=== PATIENT | female | born 1945 | race Caucasian/White ===

== ENCOUNTER → 2017-04-11 10:57 | Outpatient (CLI) | payer MEDICARE, SELFPAY ==
[2017-04-11 11:59] LABS: Anion Gap 7 (5-15); BUN 11 mg/dL (7-18); BUN/Creat Ratio 14.2 RATIO (10-20); Calcium,Total 9.2 mg/dL (8.5-10.1); Chloride 101 mmol/L (98-107); Creatinine, Serum 0.77 mg/dL (0.55-1.02); EST Glomerular Filtration Rate 78 mL/min (>60); Est Glom Filt Rate - Afr Amer 94 mL/min (>60); Glucose 108 mg/dL (70-110); Potassium 3.7 mmol/L (3.5-5.1); Sodium Level 138 mmol/L (136-145)
== END ==
PROVIDERS: Family Provider Family Medicine; PCP Family Medicine; Visit Provider Obstetrics & Gynecology
DX: N99.3 Prolapse of vaginal vault after hysterectomy (principal)
CPT/HCPCS: 36415; 80048

== ENCOUNTER → 2017-04-13 13:51 | Outpatient (CLI) | payer MEDICARE, SELFPAY ==
--- NOTE | 2017-04-13 13:53 | CT_ITS ---
STUDY: CT ABDOMEN AND PELVIS WITH CONTRAST REASON FOR EXAM: Female, 72 years old. Vaginal vault prolapse. Prior hysterectomy. History of colon cancer and resection. RADIATION DOSAGE (If Supplied By Facility): CTDIvol = ( 15.71 ) mGy, DLP = ( 555.78 ) mGycm TECHNIQUE: Transaxial images were obtained from the dome of the diaphragm to the symphysis pubis with oral contrast. 100 ml of Isovue 300 contrast was administered. Sagittal and coronal images were reconstructed. Individualized dose optimization techniques were used for this CT. COMPARISON: None. FINDINGS: Increased linear markings at the right lung base suggestive of bibasilar linear atelectasis and/or scarring. The visualized portions of the heart are within normal limits. Calcified granuloma in the dome of the right lobe of the liver. The patient is status post cholecystectomy. Minimally dilated common bile duct most likely secondary to the prior cholecystectomy. This measures 1.2 cm. Normal spleen. There is diffuse atrophy of the pancreas. Normal bilateral adrenal glands. Mild degree of bilateral hydronephrosis. Normal visualized stomach. Normal small intestine. There are multiple colonic diverticula consistent with diverticulosis. There is non-visualization of the appendix. Normal abdominal aorta. Normal inferior vena cava. Normal retroperitoneum. Normal urinary bladder. Normal abdominal wall. Straightening of the normal lumbar lordosis. Sclerotic changes in the L4 vertebrae with mild loss of height. Metastatic disease should be ruled out. There is also evidence of very demineralization of the L3 vertebrae. Correlation with a bone scan is recommended for further evaluation. Mild degree of levoscoliosis. CT/Abdomen/Pelvis WITH Contrast IMPRESSION: Status post cholecystectomy. Sclerotic changes in the L4 vertebrae as well as decrease density of the L3 vertebrae. Correlation with a bone scan is recommended. Electronically Signed: Ankush Durham MD at 15:28 EST Tel [phone], Service support ,
== END ==
PROVIDERS: Family Provider Family Medicine; PCP Family Medicine; Visit Provider Obstetrics & Gynecology
DX: N99.3 Prolapse of vaginal vault after hysterectomy (principal)
CPT/HCPCS: 74177; Q9967

== ENCOUNTER 2023-04-13 10:45 | Outpatient (RCR) | payer MEDICARE, SELFPAY ==
[2023-03-23 08:50] VITALS: BP 148/88; PULSE 79; TEMP 36.2; BMI 21.6
--- NOTE | 2023-03-23 09:54 | HP.PCM_ITS ---
History of Present Illness Date of Service: 03/23/23 Chief Complaint: Right leg wound History of Wound: Right leg wound Progress of Wound: Mrs. Booker is a 78-year-old female presenting to the wound care center today for evaluation and treatment of a full-thickness ulceration to the medial side of her right ankle. Patient was seen by her primary care physician who was treating her with open to air treatment, Neosporin and gauze. Patient states that she notices a scab to the area and was referred to the wound care center for further evaluation for treatment to help get her full-thickness wound to close. Patient admits to pain especially at night when she is in a laying down position. Treatment thus far has been by her applying Neosporin and gauze. She has not tried any antibiotics. She admits there is some redness to the surrounding tissue of the wound. She denies any drainage. She does not wear compression. She denies trauma to the area. Denies constitutional symptoms. No other pedal complaints at this time. [facility] Home Medications atorvastatin 20 mg tablet (Lipitor) 20 mg PO DAILY 07/23/16 [History Last Taken Unknown] [id number]-[id number]-cjty 8 mg-folic 400 mcg-K 50 mcg-lutein 300 mcg tablet (Centrum Silver Women) 1 ea PO DAILY 07/23/16 [History Last Taken Unknown] alendronate 70 mg/75 mL oral solution 70 mg PO QWEEK 03/23/23 [History Last Taken Unknown] amlodipine 5 mg-benazepril 20 mg capsule (Lotrel) 1 cap PO DAILY Hypertension 03/23/23 [History Last Taken Unknown] Allergy/AdvReac Type Severity Reaction Status Date / Time No Known Allergies Allergy Verified 07/23/16 09:56 Social History Smoking Status: Never smoker Vital Signs Vital Signs Vital Signs: 03/23/23 08:50 Temperature 97.2 F L Temperature Source Temporal Pulse Rate 79 Blood Pressure 148/88 H Blood Pressure Mean 108 Blood Pressure Source Monitor Blood Pressure Position Sitting Blood Pressure Location Right Arm Oxygen Delivery Method Room Air Weight Weight: 62.596 kg Body Mass Index (BMI) 21.6 Physical Exam Narrative Vascular: DP and PT pulses are palpable. CFT is brisk. Skin temperature gradient is warm to warm from proximal ankle to distal digits. Blanchable erythema is appreciated to the periwound of the right lower extremity. Nonpitting edema is appreciated to the right lower extremity. Neurological: Light touch intact. Patient response to painful stimuli. Dermatological: Full-thickness ulceration measuring 2.2 x 1.3 x 0.1 cm. Wound base is granular in nature. No drainage. No malodor. Evidence of blanchable erythema to periwound. Evidence of cobblestone appearance around periwound as well. Excisional debridement down to and including subcutaneous tissue of the medial ankle full-thickness ulceration with a number 5 mm dermal curette without incident. Predebridement measurement was sanguinous crust. Postdebridement measurement is 2.2 x 1.3 x 0.1 cm. Musculoskeletal: Mild pain to palpation of full-thickness ulceration of the right ankle. No pain with calf compression. Const alert, oriented x3 and no apparent distress Debridement Note Debridement Note Debridement Free Text: Excisional debridement down to and including subcutaneous tissue of the medial ankle full-thickness ulceration with a number 5 mm dermal curette without incident. Predebridement measurement was sanguinous crust. Postdebridement measurement is 2.2 x 1.3 x 0.1 cm. Post-Debridement Measurements and Additional Note: Post-Debridement Measurements/Treatment - Nurse 1 - General Ulcer Assessment Start: 03/23/23 08:49 Freq: Status: Active Protocol: WC.[email or web address] Activity Type Activity Date Activity User E-sign Co-sign Detail Recorded Client Recorded Date Recorded By Document 03/23/23 08:50 Desktop 03/23/23 09:06 GM 03/23/23 08:50 - Today's Visit Information Type of service Initial Visit Arrival Mode Ambulatory Transfer Assistance None Accompanied by Patient Identification Verified (Name & Yes ) Patient Requires Transmission-Based No Precautions Safety Precautions NA Height and Weight Height 5 ft 7 in Weight 62.596 kg Weight in Pounds 138.0 lbs Weight Measurement Method Stated by Patient Body Mass Index (BMI) 21.6 BMI Classification Normal BSA - Hugo 1.73 Vital Signs Temperature (97.8 F-99.1 F) 97.2 F L Temperature Source Temporal Pulse Rate (60-100) 79 Pulse Location Monitor Respiratory rate source Observation Oxygen Delivery Method Room Air Blood Pressure (90/60-120/80) 148/88 H Blood Pressure Mean 108 Source Monitor Position Sitting Blood Pressure Location Right Arm History Since Last Visit- (Skip if this is Patient's initial visit) Left Footwear Regular Shoe Right Footwear Regular Shoe Pain Scale: 0-10 Numeric Is Patient Pain Free? Yes Lower Extremity Assessment/ Foot Assessment/ Toe Nail Assessment Right -Posterior Tibial Palpable Yes -Posterior Tibial Doppler Multiphasic -Dorsalis Pedis Palpable Yes -Dorsalis Pedis Doppler Multiphasic -Extremity Color Pale -Hair Growth on Legs No -Hair Growth on Toes No -Temperature of Extremity Warm -Capillary Refill Less than 3 Seconds -Dependent Rubor Yes -Blanched when Elevated No -Lipodermatosclerosis No -Other Deformity No -Prior Foot Ulcer No -Charcot Joint No -Prior Amputation No -Thick No -Discolored No -Deformed No -Improper Length & Hygeine No Left -Claudication Assessment None -Posterior Tibial Palpable Yes -Posterior Tibial Doppler Multiphasic -Dorsalis Pedis Palpable Yes -Dorsalis Pedis Doppler Multiphasic -Extremity Color Pale -Hair Growth on Legs No -Hair Growth on Toes No -Temperature of Extremity Warm -Capillary Refill Less than 3 Seconds -Dependent Rubor Yes -Blanched when Elevated No -Other Deformity No -Prior Foot Ulcer No -Charcot Joint No -Prior Amputation No -Thick No -Discolored No -Deformed No -Improper Length & Hygeine No Communication Assessment Preferred language Mal[place]ian 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 No Able to Read Yes Able to Write Yes Communication Tools None Caregiver Communication Skills No Impairment Impairment Right Hearing Abillity Normal Left Hearing Abillity Normal Visual Assistive Devices Glasses Teaching Assessment Preferences Verbal,Written Barriers to Learning None Readiness To Learn Good Willingness to Engage in Self Management High Activies Readiness to Engage in Self Management High Activities Anxiety Level Calm Cooperation Cooperative Does Patient Smoke tobacco or other No substances Functional Assessment Recent Decline in Ability to Perform Denies Any Declines Assistive Device With Patient N/A Culture/Jainism/Occupational Therapy Aides Teacher Cultural/Jainism Needs that may affect No Treatment Plan Would you allow our hospital rod straightener to No meet you for the purpose of spiritual/ emotional support? Occupational Therapy Aides Teacher to contact place of zoroastrianism No WC - Nurse 1 - General Ulcer Measurement Start: 03/23/23 08:49 Freq: Status: Active Protocol: Activity Type Activity Date Activity User E-sign Co-sign Detail Recorded Client Recorded Date Recorded By Document 03/23/23 08:50 Desktop 03/23/23 09:06 GM 03/23/23 08:50 Wound Center Nurse 1 #1 Left Medial Ankle -Current Size (cm) - Length 2.0 -Current Size (cm) - Width 1.6 -Current Size (cm) - Depth 0.1 -Total Square Cm 3.20 -Date of Last Picture (Recall this 03/23/23 field) -Photo Taken Yes -Tunneling No -Undermining/Tunneling No -Circular Undermining No -Exudate Amt None Present -Wound Margin Distinct, Outline Attached -Granulation Amt None Present (0 %) -Necrotic Tissue Type Eschar -Structure Exposed N/A -Texture (Angela-wound Skin Appearance) Assessed -Moisture (Angela-wound Skin Appearance) Assessed -Color (Angela-wound Skin Appearance) Assessed, Hemosiderin Staining -Temperature (Anegla-wound Skin No Abnormality Appearance) (Pt Warm) -Tenderness on Palpation (Angela-wound No Skin Appearance) -Ulcer Cleansing Soap and Water -Foul Odor after Cleansing No -Anesthetic Used 5% Lidocaine Gel Lower Limb Edema Present Yes Right Calf (cm) 34 Right Ankle (cm) 22 WC - Nurse 2 - General Ulcer CM Notes Start: 03/23/23 08:49 Freq: Status: Active Protocol: Activity Type Activity Date Activity User E-sign Co-sign Detail Recorded Client Recorded Date Recorded By Document 03/23/23 09:26 Laptop 03/23/23 09:28 03/23/23 09:26 Wound Center Nurse 2 #1 Left Medial Ankle -Time 09:26 -Correct Patient Yes -Correct Side, Site, Position Yes -Correct Procedure Yes -Procedure Performed Yes -Type of Procedure Debridement -Clinical Debridement Subcutaneous -Tissue Removed Subcutaneous -Post Debridement (cm) - Length 2.2 -Post Debridement (cm) - Width 1.3 -Post Debridement (cm) - Depth 0.1 -Total Square (Post) (cm) 2.86 -Area of Debridement (cm) - Length 2.2 -Area of Debridement (cm) - Width 1.3 -Total Square (Area) (cm) 2.86 -Tunneling No -Undermining/Tunneling No -Circular Undermining No -Wound/Ulcer Outcome Not Healed -Ulcer Cleansing Rinsed/ Irrigated with Saline -Foul Odor after Cleansing No -Bioengineered Tissue No -Bleeding Controlled with Pressure -Treatment Response Procedure Tolerated Well -Offloading No -Debridement - Subq, 1st 20sq cm Yes Pain Scale: 0-10 Numeric Is Patient Pain Free? Yes - Nurse 3 - General Ulcer D/C NN Start: 03/23/23 08:49 Freq: Status: Active Protocol: Activity Type Activity Date Activity User E-sign Co-sign Detail Recorded Client Recorded Date Recorded By Document 03/23/23 09:35 KW Desktop 03/23/23 09:37 KW 03/23/23 09:35 Wound Care Center Nurse 3 #1 Left Medial Ankle -Ulcer Cleansing Rinsed/ Irrigated with Saline -Primary Dressing Applied Mepilex Border, Promogran Aileen Matter -Mepilex Border 1 -Promogran Aileen Matter 1 Right -Tubular Bandage Single Layer -Size of Tubigrip Used Size D -Size D ($) 1 Left -Tubular Bandage Single Layer -Size of Tubigrip Used Size D -Size D ($) 1 Pain Scale: 0-10 Numeric Is Patient Pain Free? Yes - Visit Discharge Discharge Condition Stable Ambulatory Status Ambulatory Transportation Private Auto Medication Reconcilliation completed & No provided to patient/care provider Clinical Summary of Care Provided Yes Assessment/Plan Assessment/Plan (1) Non-pressure chronic ulcer of right ankle with fat layer exposed: CODE(S): L97.312 - Non-pressure chronic ulcer of right ankle with fat layer exposed PLAN: Patient was examined and evaluated. All findings were discussed with the patient. All questions were answered to the patient's satisfaction. Excisional debridement down to and including subcutaneous tissue of the medial ankle full-thickness ulceration with a number 5 mm dermal curette without incident. Predebridement measurement was sanguinous crust. Postdebridement measurement is 2.2 x 1.3 x 0.1 cm. Culture was taken from the full-thickness ulceration to rule out any type of bacterial contamination or infection. Cultures will be followed and antibiotics will be prescribed as necessary. Ulceration was wiped clean and patted dry dressed with Aileen, Betadine to surrounding periwound covered by gauze and single-layer Tubigrip was applied. Patient will change her dressing every other day. She is given the go ahead to shower and wash with antibacterial soap every other day. We will send a order to [facility] for dressing supplies to be changed Tuesday, and Tuesday until the wound is healed. Patient was given a order form for arterial studies as well as venous reflux studies to get a baseline study on the patient's that she has not had any to see whether or not patient will need to be referred to vascular for intervention or follow-up. Follow-up at the wound care center with Dr. Emerson in 1 week. (2) Pain in right ankle: CODE(S): M25.571 - Pain in right ankle and joints of right foot QUALIFIERS: Chronicity: acute Qualified Code(s): M25.571 - Pain in right ankle and joints of right foot (3) Venous insufficiency: CODE(S): I87.2 - Venous insufficiency (chronic) (peripheral)
--- NOTE | 2023-03-30 12:39 | ART_ITS ---
Reason For Study: Right leg wound Procedure A bilateral lower extremity continuous wave Doppler with analog waveform analysis,segmental pressures,and ankle brachial indexes without exercise. Left Segmental Pressures Left brachial= 149mmHg. Left posterior tibial artery = 177mmHg. Left dorsalis pedis artery = 174mmHg. Left digit = 84 mmHg. The left dorsalis pedis waveforms are triphasic. The left posterior tibial artery waveforms are triphasic. Right Segmental Pressures Right brachial= 149mmHg. Right posterior tibial artery = 186mmHg. Right dorsalis pedis artery = 166mmHg. Right digit = 87 mmHg. The right dorsalis pedis waveforms are triphasic. The right posterior tibial artery waveforms are triphasic. Indices The right ankle brachial index by the dorsalis pedis is 1.11. The right ankle brachial index by the posterior tibial artery is 1.25. The right digital-brachial index is 0.58. The left ankle brachial index by the dorsalis pedis is 1.17. The left ankle brachial index by the posterior tibial artery is 1.19. The left digital-brachial index is 0.56. VL/Lower Ext Art Exam w/o Exercis Interpretation Summary Triphasic Doppler waveforms are noted at ankle level bilaterally. Pulse-volume recordings appear satisfactory at all levels bilaterally. Resting ankle-brachial indices are norm al bilaterally. Digital-brachial indices are mildly diminished bilaterally. Arterial flow appears normal at ankle level bilaterally. There is evidence of m ild arterial occlusive disease at digital level bilaterally. Ordering Physician: Fredrick Emerson Referring Physician: Gibran Samuel MD Performed By: Anum Barney RVT
--- NOTE | 2023-03-30 12:39 | VDLE_ITS ---
Reason For Study: Wound RIGHT LEFT CFV is compressible, spontaneous, phasic, CFV is compressible, spontaneous, phasic, competent and demonstrates normal competent, and demonstrates normal augmentation. augmentation. FV is compressible, spontaneous, phasic, FV is compressible, spontaneous, phasic, competent and demonstrates normal competent and demonstrates normal augmentation. augmentation. POP V is compressible, spontaneous, phasic, POP V is compressible, spontaneous, phasic, competent and demonstrates normal competent and demonstrates normal augmentation. augmentation. T/P Trunk is compressible. T/P Trunk is compressible. PTV is compressible. PTV is compressible. RT PerV is compressible. LT PerV is compressible. SFJ is INCOMPETENT and measures 1.03 x 1.09 SFJ is competent and measures 0.45 x 0.48 cm. cm. GSV proximal thigh measures 0.26 x 0.25 cm. GSV proximal thigh measures 0.74 x 0.77 cm. GSV above knee is INCOMPETENT for greater GSV at knee measures 0.83 x 0.86 cm. than 0.5 seconds. GSV INCOMPETENT throughout for greater than GSV at knee measures 0.27 x 0.28 cm. 0.5 seconds. GSV below knee is INCOMPETENT for greater Multiple varicose vein clusters originating than 0.5 seconds. off GSV calf. SSV proximal calf is INCOMPETENT for greater INCOMPETENT cafeteria worker noted 15 cm above than 0.5 seconds and measures 0.96 x 0.99 cm. medial malleolus. Varicose vein clusters noted coming off of ASV mid calf from cafeteria worker is INCOMPETENT GSV calf and SSV. for greater than 0.5 seconds and measures 0.32 x 0.34 cm. SSV proximal calf is INCOMPETENT for greater than 0.5 seconds and measures 0.22 x 0.24 cm. Procedure This is a venous duplex using B-mode, color flow and spectral Doppler. Exam performed in department. Patient was scanned in reverse Trendelenburg position during reflux assessment. A preliminary report was called and/or faxed to [facility]. VL/Venous Duplex US - [place] Extrem Interpretation Summary Deep veins of the lower extremities are bilaterally patent and compressible seg mentally. There is no evidence of deep vein thrombosis on either side. Valvular competence appears in tact within the proximal deep venous systems bilaterally. The great saphenous veins appear bila terally patent and compressible segmentally. The right sapheno-femoral junction is incompetent . T he left sapheno- femoral junction is competent . Segmental valvular incompetence is noted within the great saphenous veins bilaterally. Small saphenous veins are patent and incompetent bilaterally . The accessory saphenous vein in the right mid-calf is incompetent. An incompetent cafeteria worker vein is noted in the right calf, located 15 centimeters proximal to the right medial malleolus. Mult iple varicose vein clusters are noted to originate from the right great saphenous vein and the lef t great and small saphenous veins. Ordering Physician: Fredrick Emerson Referring Physician: Gibran Samuel Performed By: Anum Barney RVT
[2023-03-30 14:43] VITALS: BP 153/83; PULSE 79; RESP 16; BMI 21.6
--- NOTE | 2023-03-30 15:33 | PN.PCM_ITS ---
History of Present Illness Date of Service: 03/30/23 Chief Complaint: Right leg wound History of Wound: Right leg wound Progress of Wound: Mrs. Booker is a 78-year-old female presenting to the wound care center today for evaluation and treatment of a full-thickness ulceration to the medial side of her right ankle. Patient was seen by her primary care physician who was treating her with open to air treatment, Neosporin and gauze. Patient states that she notices a scab to the area and was referred to the wound care center for further evaluation for treatment to help get her full-thickness wound to close. Patient admits to pain especially at night when she is in a laying down position. Treatment thus far has been by her applying Neosporin and gauze. She has not tried any antibiotics. She admits there is some redness to the surrounding tissue of the wound. She denies any drainage. She does not wear compression. She denies trauma to the area. Denies constitutional symptoms. No other pedal complaints at this time. Subjective Subjective Mrs. Booker is a 78-year-old female presenting to wound care center follow-up evaluation of venous stasis ulceration to the medial aspect of the right ankle. Patient has been doing home dressing changes with Aileen dry sterile dressing and a single layer Tubigrip to right lower extremity. She admits that she had her vascular studies done and is following up to review those as well as her bacterial cultures. She denies trauma. Denies constitutional symptoms. No other pedal complaints at this time. Objective Data Objective Data Vital Signs: Vital Signs Temp Pulse Resp BP O2 Del Method 97.2 F L 79 16 153/83 H Room Air 03/23/23 08:50 03/30/23 14:43 03/30/23 14:43 03/30/23 14:43 03/30/23 14:43 Oxygen Delivery Method Room Air Weight: 62.596 kg Body Mass Index (BMI) 21.6 Lab / Micro Data Micro: Microbiology 03/23/23 09:25 Wound - Ankle Gram Stain - Final 03/23/23 09:25 Wound - Ankle Wound Culture - Final Staphylococcus epidermidis 03/23/23 09:25 Wound - Ankle Anaerobic Culture - Final Clostridium group Physical Exam Narrative Vascular: DP and PT pulses are palpable. CFT is brisk. Skin temperature gradient is warm to warm from proximal ankle to distal digits. Blanchable erythema is appreciated to the periwound of the right lower extremity. Nonpitting edema is appreciated to the right lower extremity. Neurological: Light touch intact. Patient response to painful stimuli. Dermatological: Full-thickness ulceration measuring 2.0 x 1.0 x 0.1 cm. Wound base is granular in nature. No drainage. No malodor. Evidence of blanchable erythema to periwound. Evidence of cobblestone appearance around periwound as well. Excisional debridement down to and including subcutaneous tissue of the medial ankle full-thickness ulceration with a number 5 mm dermal curette without incident. Predebridement measurement was 1.8 x 0.8 x 0.1 cm. Postdebridement measurement is 2.0 x 1.0 x 0.1 cm. Musculoskeletal: Mild pain to palpation of full-thickness ulceration of the right ankle. No pain with calf compression. Debridement Note Debridement Note Debridement Free Text: Excisional debridement down to and including subcutaneous tissue of the medial ankle full-thickness ulceration with a number 5 mm dermal curette without incident. Predebridement measurement was 1.8 x 0.8 x 0.1 cm. Postdebridement measurement is 2.0 x 1.0 x 0.1 cm. 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 ) Arrival Mode Ambulatory Ambulatory Transfer Assistance None None Accompanied by Patient Identification Verified (Name & Yes Yes ) Patient Requires Transmission-Based No No Precautions Safety Precautions NA Height and Weight Height 5 ft 7 in Weight 62.596 kg Weight in Pounds 138.0 lbs Weight Measurement Method Stated by Patient Body Mass Index (BMI) 21.6 21.6 BMI Classification Normal Normal BSA - Hugo 1.73 Vital Signs Temperature (97.8 F-99.1 F) 97.2 F L Temperature Source Temporal Pulse Rate (60-100) 79 79 Pulse Location Monitor Monitor Respiratory Rate (12-18) 16 Respiratory rate source Observation Observation Oxygen Delivery Method Room Air Room Air Blood Pressure (90/60-120/80) 148/88 H 153/83 H Blood Pressure Mean (mm Hg) 108 106 Source Monitor Monitor Position Sitting Sitting Blood Pressure Location Right Arm Right Arm History Since Last Visit- (Skip if this is Patient's initial visit) Have you changed medications since your No last visit? Any new allergies or adverse reactions No Had a fall/change in ADL's that may No increase risk of falls Signs or symptoms of abuse and/or No neglect since last visit Have you been in the hospital since your No last visit? Has dressing in place as prescribed Yes Has compression in place as prescribed Yes Has offloadiing in place as prescribed N/A Experienced any changes in pain level or No management Left Footwear Regular Shoe Regular Shoe Right Footwear Regular Shoe Regular Shoe Pain Scale: 0-10 Numeric Is Patient Pain Free? Yes Yes Lower Extremity Assessment/ Foot Assessment/ Toe Nail Assessment Right -Posterior Tibial Palpable Yes -Posterior Tibial Doppler Multiphasic -Dorsalis Pedis Palpable Yes -Dorsalis Pedis Doppler Multiphasic -Extremity Color Pale -Hair Growth on Legs No -Hair Growth on Toes No -Temperature of Extremity Warm -Capillary Refill Less than 3 Seconds -Dependent Rubor Yes -Blanched when Elevated No -Lipodermatosclerosis No -Other Deformity No -Prior Foot Ulcer No -Charcot Joint No -Prior Amputation No -Thick No -Discolored No -Deformed No -Improper Length & Hygeine No Left -Claudication Assessment None -Posterior Tibial Palpable Yes -Posterior Tibial Doppler Multiphasic -Dorsalis Pedis Palpable Yes -Dorsalis Pedis Doppler Multiphasic -Extremity Color Pale -Hair Growth on Legs No -Hair Growth on Toes No -Temperature of Extremity Warm -Capillary Refill Less than 3 Seconds -Dependent Rubor Yes -Blanched when Elevated No -Other Deformity No -Prior Foot Ulcer No -Charcot Joint No -Prior Amputation No -Thick No -Discolored No -Deformed No -Improper Length & Hygeine No Communication Assessment Preferred language [place] Autoclave Operator Required No Able to Read Yes Able to Write Yes Communication Tools None Caregiver Communication Skills No Impairment Impairment Right Hearing Abillity Normal Left Hearing Abillity Normal Visual Assistive Devices Glasses Teaching Assessment Preferences Verbal,Written Barriers to Learning None Readiness To Learn Good Willingness to Engage in Self Management High Activies Readiness to Engage in Self Management High Activities Anxiety Level Calm Cooperation Cooperative Does Patient Smoke tobacco or other No substances Functional Assessment Recent Decline in Ability to Perform Denies Any Declines Assistive Device With Patient N/A Culture/Druze/Health Outcomes Liaison Cultural/Druze Needs that may affect No Treatment Plan Would you allow our hospital manager commercial to No meet you for the purpose of spiritual/ emotional support? Health Outcomes Liaison to contact place of baptism No WC - Nurse 1 - General Ulcer Measurement Start: 03/23/23 08:49 Freq: Status: Active Protocol: Activity Type Activity Date Activity User E-sign Co-sign Detail Recorded Client Recorded Date Recorded By Document 03/23/23 08:50 Desktop 03/23/23 09:06 GM Document 03/30/23 14:43 [facility] Desktop 03/30/23 14:51 F 03/23/23 03/30/23 08:50 14:43 Wound Center Nurse 1 #1 RIGHT Medial Ankle -Combined with other wound No -Current Size (cm) - Length 2.0 2.1 -Current Size (cm) - Width 1.6 0.5 -Current Size (cm) - Depth 0.1 0.1 -Total Square Cm 3.20 1.05 -Date of Last Picture (Recall this 03/23/23 field) -Photo Taken Yes No -Epithelialization Small 1-33% -Tunneling No No -Undermining/Tunneling No No -Circular Undermining No No -Exudate Amt None Present Medium -Exudate Type Serosanguineous -Wound Margin Distinct, Distinct, Outline Outline Attached Attached -Granulation Amt None Present (0 Small (1-33%) %) -Granulation Quality Red -Slough/Fibrin Yes -Necrosis Amt Large (67-100%) -Necrotic Tissue Type Eschar Adherent Slough -Structure Exposed N/A -Texture (Angela-wound Skin Appearance) Assessed Assessed, Scarring -Moisture (Angela-wound Skin Appearance) Assessed Assessed,Dry/ Scaly -Color (Angela-wound Skin Appearance) Assessed, Assessed Hemosiderin Staining -Temperature (Angela-wound Skin No Abnormality No Abnormality Appearance) (Pt Warm) (Pt Warm) -Tenderness on Palpation (Angela-wound No No Skin Appearance) -Ulcer Cleansing Soap and Water Rinsed/ Irrigated with Saline -Foul Odor after Cleansing No No -Anesthetic Used 5% Lidocaine 5% Lidocaine Gel Gel Lower Limb Edema Present Yes Right Calf (cm) 34 33.2 Right Ankle (cm) 22 22 WC - Nurse 2 - General Ulcer CM Notes Start: 03/23/23 08:49 Freq: Status: Active Protocol: Activity Type Activity Date Activity User E-sign Co-sign Detail Recorded Client Recorded Date Recorded By Document 03/23/23 09:26 Laptop 03/23/23 09:28 Document 03/30/23 15:22 Laptop 03/30/23 15:25 03/23/23 03/30/23 09:26 15:22 Wound Center Nurse 2 #1 RIGHT Medial Ankle -Time 09:26 15:22 -Correct Patient Yes Yes -Correct Side, Site, Position Yes Yes -Correct Procedure Yes Yes -Procedure Performed Yes Yes -Type of Procedure Debridement Debridement -Clinical Debridement Subcutaneous Subcutaneous -Tissue Removed Subcutaneous Subcutaneous -Post Debridement (cm) - Length 2.2 2.0 -Post Debridement (cm) - Width 1.3 1.0 -Post Debridement (cm) - Depth 0.1 0.1 -Total Square (Post) (cm) 2.86 2.00 -Area of Debridement (cm) - Length 2.2 2.0 -Area of Debridement (cm) - Width 1.3 1.0 -Total Square (Area) (cm) 2.86 2.00 -Tunneling No No -Undermining/Tunneling No No -Circular Undermining No No -Wound/Ulcer Outcome Not Healed Not Healed -Ulcer Cleansing Rinsed/ Rinsed/ Irrigated with Irrigated with Saline Saline -Foul Odor after Cleansing No No -Bioengineered Tissue No No -Bleeding Controlled with Pressure Pressure -Treatment Response Procedure Procedure Tolerated Well Tolerated Well -Offloading No No -Debridement - Subq, 1st 20sq cm Yes Yes Pain Scale: 0-10 Numeric Is Patient Pain Free? Yes Yes HEBERT - Nurse 3 - General Ulcer D/C NN Start: 03/23/23 08:49 Freq: Status: Active Protocol: Activity Type Activity Date Activity User E-sign Co-sign Detail Recorded Client Recorded Date Recorded By Document 03/23/23 09:35 KW Desktop 03/23/23 09:37 KW 03/23/23 09:35 Wound Care Center Nurse 3 #1 RIGHT Medial Ankle -Ulcer Cleansing Rinsed/ Irrigated with Saline -Primary Dressing Applied Mepilex Border, Promogran Aileen Matter -Mepilex Border 1 -Promogran Aileen Matter 1 Right -Tubular Bandage Single Layer -Size of Tubigrip Used Size D -Size D ($) 1 Left -Tubular Bandage Single Layer -Size of Tubigrip Used Size D -Size D ($) 1 Pain Scale: 0-10 Numeric Is Patient Pain Free? Yes WC - Visit Discharge Discharge Condition Stable Ambulatory Status Ambulatory Transportation Private Auto Medication Reconcilliation completed & No provided to patient/care provider Clinical Summary of Care Provided Yes Assessment/Plan Assessment/Plan (1) Non-pressure chronic ulcer of right ankle with fat layer exposed: CODE(S): L97.312 - Non-pressure chronic ulcer of right ankle with fat layer exposed PLAN: Patient was examined and evaluated. All findings were discussed with the patient. All questions were answered to the patient's satisfaction. Excisional debridement down to and including subcutaneous tissue of the medial ankle full-thickness ulceration with a number 5 mm dermal curette without incident. Predebridement measurement was 1.8 x 0.8 x 0.1 cm. Postdebridement measurement is 2.0 x 1.0 x 0.1 cm. Right lower extremities were cleaned and patted dry. Aileen, Betadine paint to the periwound and dry sterile dressing with single-layer Tubigrip was donned to the right lower extremity. Patient will follow wound care dressings every other day and is okay to shower before her dressing changes with antibacterial soap. The patient and her are understanding of this. Follow-up at the wound care center with Dr. Emerson in 1 week. (2) Venous insufficiency: CODE(S): I87.2 - Venous insufficiency (chronic) (peripheral) PLAN: In regards to the patient's PVRs they are within normal limits and unremarkable at this time. The venous duplex does show evidence of incompetence vessels and will be referred to Dr. Klein for follow-up/evaluation as well as consultation. (3) Cellulitis: CODE(S): L03.90 - Cellulitis, unspecified QUALIFIERS: Site of cellulitis: extremity Site of cellulitis of extremity: lower extremity Laterality: right Qualified Code(s): L03.115 - Cellulitis of right lower limb PLAN: The patient will be placed on doxycycline for 2 weeks twice daily after her cultures have grown Streptococcus epidermidis.
[2023-04-06 10:35] VITALS: BP 169/81; PULSE 78; RESP 18; TEMP 36.1; BMI 21.6
--- NOTE | 2023-04-06 11:04 | PCM.WC.PN ---
History of Present Illness Date of Service: 04/06/23 Chief Complaint: Right leg wound History of Wound: Right leg wound Progress of Wound: Mrs. Booker is a 78-year-old female presenting to the wound care center today for evaluation and treatment of a full-thickness ulceration to the medial side of her right ankle. Patient was seen by her primary care physician who was treating her with open to air treatment, Neosporin and gauze. Patient states that she notices a scab to the area and was referred to the wound care center for further evaluation for treatment to help get her full-thickness wound to close. Patient admits to pain especially at night when she is in a laying down position. Treatment thus far has been by her applying Neosporin and gauze. She has not tried any antibiotics. She admits there is some redness to the surrounding tissue of the wound. She denies any drainage. She does not wear compression. She denies trauma to the area. Denies constitutional symptoms. No other pedal complaints at this time. Subjective Subjective Mrs. Booker is a 78-year-old female presenting to wound care center follow-up evaluation of venous stasis ulceration to the medial aspect of the right ankle. Patient has been doing home dressing changes with Aileen dry sterile dressing and a single layer Tubigrip to right lower extremity. She admits that she had her vascular studies done and is following up to review those as well as her bacterial cultures. She denies trauma. Denies constitutional symptoms. No other pedal complaints at this time. Objective Data Objective Data Vital Signs: Vital Signs Temp Pulse Resp BP O2 Del Method 97.0 F L 78 18 169/81 H Room Air 04/06/23 10:35 04/06/23 10:35 04/06/23 10:35 04/06/23 10:35 04/06/23 10:35 Oxygen Delivery Method Room Air Weight: 62.596 kg Body Mass Index (BMI) 21.6 Lab / Micro Data Micro: Microbiology 03/23/23 09:25 Wound - Ankle Gram Stain - Final 03/23/23 09:25 Wound - Ankle Wound Culture - Final Staphylococcus epidermidis 03/23/23 09:25 Wound - Ankle Anaerobic Culture - Final Clostridium group Physical Exam Narrative Vascular: DP and PT pulses are palpable. CFT is brisk. Skin temperature gradient is warm to warm from proximal ankle to distal digits. Blanchable erythema is appreciated to the periwound of the right lower extremity. Nonpitting edema is appreciated to the right lower extremity. Neurological: Light touch intact. Patient response to painful stimuli. Dermatological: Full-thickness ulceration measuring 1.1 x 0.3 x 0.1 cm. Wound base is granular in nature. No drainage. No malodor. Evidence of blanchable erythema to periwound. Evidence of cobblestone appearance around periwound as well. Excisional debridement down to and including subcutaneous tissue of the medial ankle full-thickness ulceration with a number 5 mm dermal curette without incident. Predebridement measurement was 0.9 x 0.2 x 0.1 cm. Postdebridement measurement is 1.1 x 0.3 x 0.1 cm. Musculoskeletal: Mild pain to palpation of full-thickness ulceration of the right ankle. No pain with calf compression. Debridement Note Debridement Note Debridement Free Text: Excisional debridement down to and including subcutaneous tissue of the medial ankle full-thickness ulceration with a number 5 mm dermal curette without incident. Predebridement measurement was 0.9 x 0.2 x 0.1 cm. Postdebridement measurement is 1.1 x 0.3 x 0.1 cm. Post-Debridement Measurements and Additional Note: Post-Debridement Measurements/Treatment - Nurse 1 - General Ulcer Assessment Start: 03/23/23 08:49 Freq: Status: Active Protocol: .LOWEXShawn Activity Type Activity Date Activity User E-sign Co-sign Detail Recorded Client Recorded Date Recorded By Document 03/23/23 08:50 [employer] 03/23/23 09:06 Document 03/30/23 14:43 [facility] Desktop 03/30/23 14:51 [facility] Document 04/06/23 10:35 KW Desktop 04/06/23 10:46 KW 03/23/23 03/30/23 04/06/23 08:50 14:43 10:35 - Today's Visit Information Type of service Initial Visit Follow-up Visit Follow-up Visit (Physician/COM[employer] WORKER (Physician/COM[employer]ANT WORKER ) ) Arrival Mode Ambulatory Ambulatory Ambulatory Transfer Assistance None None Accompanied by Patient Identification Verified (Name & Yes Yes ) Patient Requires Transmission-Based No No Precautions Safety Precautions NA Height and Weight Height 5 ft 7 in Weight 62.596 kg Weight in Pounds 138.0 lbs Weight Measurement Method Stated by Patient Body Mass Index (BMI) 21.6 21.6 21.6 BMI Classification Normal Normal Normal BSA - Hugo 1.73 Vital Signs Temperature (97.8 F-99.1 F) 97.2 F L 97.0 F L Temperature Source Temporal Temporal Pulse Rate (60-100) 79 79 78 Pulse Location Monitor Monitor Monitor Respiratory Rate (12-18) 16 18 Respiratory rate source Observation Observation Observation Oxygen Delivery Method Room Air Room Air Room Air Blood Pressure (90/60-120/80) 148/88 H 153/83 H 169/81 H Blood Pressure Mean (mm Hg) 108 106 110 Source Monitor Monitor Monitor Position Sitting Sitting Sitting Blood Pressure Location Right Arm Right Arm Left Arm History Since Last Visit- (Skip if this is Patient's initial visit) Have you changed medications since your No No last visit? Any new allergies or adverse reactions No No Had a fall/change in ADL's that may No No increase risk of falls Signs or symptoms of abuse and/or No No neglect since last visit Have you been in the hospital since your No No last visit? Has dressing in place as prescribed Yes Yes Has compression in place as prescribed Yes Yes Has offloadiing in place as prescribed N/A N/A Experienced any changes in pain level or No No management Left Footwear Regular Shoe Regular Shoe Regular Shoe Right Footwear Regular Shoe Regular Shoe Regular Shoe Pain Scale: 0-10 Numeric Is Patient Pain Free? Yes Yes Yes Lower Extremity Assessment/ Foot Assessment/ Toe Nail Assessment Right -Posterior Tibial Palpable Yes -Posterior Tibial Doppler Multiphasic -Dorsalis Pedis Palpable Yes -Dorsalis Pedis Doppler Multiphasic -Extremity Color Pale -Hair Growth on Legs No -Hair Growth on Toes No -Temperature of Extremity Warm -Capillary Refill Less than 3 Seconds -Dependent Rubor Yes -Blanched when Elevated No -Lipodermatosclerosis No -Other Deformity No -Prior Foot Ulcer No -Charcot Joint No -Prior Amputation No -Thick No -Discolored No -Deformed No -Improper Length & Hygeine No Left -Claudication Assessment None -Posterior Tibial Palpable Yes -Posterior Tibial Doppler Multiphasic -Dorsalis Pedis Palpable Yes -Dorsalis Pedis Doppler Multiphasic -Extremity Color Pale -Hair Growth on Legs No -Hair Growth on Toes No -Temperature of Extremity Warm -Capillary Refill Less than 3 Seconds -Dependent Rubor Yes -Blanched when Elevated No -Other Deformity No -Prior Foot Ulcer No -Charcot Joint No -Prior Amputation No -Thick No -Discolored No -Deformed No -Improper Length & Hygeine No Communication Assessment Preferred language Ghanaian Work Counselor Required No Able to Read Yes Able to Write Yes Communication Tools None Caregiver Communication Skills No Impairment Impairment Right Hearing Abillity Normal Left Hearing Abillity Normal Visual Assistive Devices Glasses Teaching Assessment Preferences Verbal,Written Barriers to Learning None Readiness To Learn Good Willingness to Engage in Self Management High Activies Readiness to Engage in Self Management High Activities Anxiety Level Calm Cooperation Cooperative Does Patient Smoke tobacco or other No substances Functional Assessment Recent Decline in Ability to Perform Denies Any Declines Assistive Device With Patient N/A Culture/Zoroastrianism/Merchandising Execution Associate Cultural/Zoroastrianism Needs that may affect No Treatment Plan Would you allow our hospital check viewer to No meet you for the purpose of spiritual/ emotional support? Merchandising Execution Associate to contact place of hindu No WC - Nurse 1 - General Ulcer Measurement Start: 03/23/23 08:49 Freq: Status: Active Protocol: Activity Type Activity Date Activity User E-sign Co-sign Detail Recorded Client Recorded Date Recorded By Document 03/23/23 08:50 [employer] 03/23/23 09:06 Document 03/30/23 14:43 [facility] Desktop 03/30/23 14:51 [facility] Document 04/06/23 10:35 Desktop 04/06/23 10:46 03/23/23 03/30/23 04/06/23 08:50 14:43 10:35 Wound Center Nurse 1 #1 RIGHT Medial Ankle -Combined with other wound No No -Current Size (cm) - Length 2.0 2.1 0.1 -Current Size (cm) - Width 1.6 0.5 0.1 -Current Size (cm) - Depth 0.1 0.1 0.1 -Total Square Cm 3.20 1.05 0.01 -Date of Last Picture (Recall this 03/23/23 04/06/23 field) -Photo Taken Yes No Yes -Epithelialization Small 1-33% -Tunneling No No No -Undermining/Tunneling No No No -Circular Undermining No No No -Exudate Amt None Present Medium Small -Exudate Type Serosanguineous Yellow/Green -Wound Margin Distinct, Distinct, Distinct, Outline Outline Outline Attached Attached Attached -Granulation Amt None Present (0 Small (1-33%) Medium (34-66%) %) -Granulation Quality Red Red -Slough/Fibrin Yes No -Necrosis Amt Large (67-100%) -Necrotic Tissue Type Eschar Adherent Slough -Structure Exposed N/A -Texture (Angela-wound Skin Appearance) Assessed Assessed, Assessed Scarring -Moisture (Angela-wound Skin Appearance) Assessed Assessed,Dry/ Assessed Scaly -Color (Angela-wound Skin Appearance) Assessed, Assessed Assessed Hemosiderin Staining -Temperature (Angela-wound Skin No Abnormality No Abnormality Appearance) (Pt Warm) (Pt Warm) -Tenderness on Palpation (Angela-wound No No Skin Appearance) -Ulcer Cleansing Soap and Water Rinsed/ Rinsed/ Irrigated with Irrigated with Saline Saline -Foul Odor after Cleansing No No No -Anesthetic Used 5% Lidocaine 5% Lidocaine 5% Lidocaine Gel Gel Gel Lower Limb Edema Present Yes Right Calf (cm) 34 33.2 Right Ankle (cm) 22 22 - Nurse 2 - General Ulcer CM Notes Start: 03/23/23 08:49 Freq: Status: Active Protocol: Activity Type Activity Date Activity User E-sign Co-sign Detail Recorded Client Recorded Date Recorded By Document 03/23/23 09:26 Laptop 03/23/23 09:28 Document 03/30/23 15:22 Laptop 03/30/23 15:25 Document 04/06/23 10:53 Laptop 04/06/23 10:56 03/23/23 03/30/23 04/06/23 09:26 15:22 10:53 Wound Center Nurse 2 #1 RIGHT Medial Ankle -Time 09: 15:22 10:53 -Correct Patient Yes Yes Yes -Correct Side, Site, Position Yes Yes Yes -Correct Procedure Yes Yes Yes -Procedure Performed Yes Yes Yes -Type of Procedure Debridement Debridement Debridement -Clinical Debridement Subcutaneous Subcutaneous Subcutaneous -Tissue Removed Subcutaneous Subcutaneous Subcutaneous -Post Debridement (cm) - Length 2.2 2.0 1.1 -Post Debridement (cm) - Width 1.3 1.0 1.3 -Post Debridement (cm) - Depth 0.1 0.1 0.1 -Total Square (Post) (cm) 2.86 2.00 1.43 -Area of Debridement (cm) - Length 2.2 2.0 1.1 -Area of Debridement (cm) - Width 1.3 1.0 1.3 -Total Square (Area) (cm) 2.86 2.00 1.43 -Tunneling No No No -Undermining/Tunneling No No No -Circular Undermining No No No -Wound/Ulcer Outcome Not Healed Not Healed Not Healed -Ulcer Cleansing Rinsed/ Rinsed/ Rinsed/ Irrigated with Irrigated with Irrigated with Saline Saline Saline -Foul Odor after Cleansing No No No -Bioengineered Tissue No No No -Bleeding Controlled with Pressure Pressure Pressure -Treatment Response Procedure Procedure Procedure Tolerated Well Tolerated Well Tolerated Well -Offloading No No No -Debridement - Subq, 1st 20sq cm Yes Yes Yes Pain Scale: 0-10 Numeric Is Patient Pain Free? Yes Yes Yes WC - Nurse 3 - General Ulcer D/C NN Start: 03/23/23 08:49 Freq: Status: Active Protocol: Activity Type Activity Date Activity User E-sign Co-sign Detail Recorded Client Recorded Date Recorded By Document 03/23/23 09:35 KW Desktop 03/23/23 09:37 KW Document 03/30/23 15:40 GM Desktop 03/30/23 15:42 GM Edit Result 03/30/23 15:40 GM (1) [id number] 03/30/23 15:49 BMF Document 04/06/23 10:58 KW Desktop 04/06/23 10:59 KW (1) Right - Tubular Bandage => Single Layer - Size D ($) => 2 - Other => sent extra Left - Tubular Bandage => Single Layer - Size D ($) => 2 - Other => sent extra 03/23/23 03/30/23 04/06/23 09:35 15:40 10:58 Wound Care Center Nurse 3 #1 RIGHT Medial Ankle -Ulcer Cleansing Rinsed/ Not Cleansed Irrigated with Saline -Foul Odor after Cleansing No -Primary Dressing Applied Mepilex Border, Mepilex Border, Promogran Promogran Promogran Aileen Matter Aileen Matter Aileen Matter -Primary Dressing Covered/Secured with Dry Gauze & Roll Gauze, Secured with Tape -Mepilex Border 1 1 -Promogran Aileen Matter 1 1 1 Right -Lotion applied to leg before No compression wrap -Tubular Bandage Single Layer Single Layer Single Layer -Size of Tubigrip Used Size D Size D Size D -Size D ($) 1 2 1 -Other sent extra Left -Lotion applied to leg before No compression wrap -Tubular Bandage Single Layer Single Layer Single Layer -Size of Tubigrip Used Size D Size D Size D -Size D ($) 1 2 1 -Other sent extra Pain Scale: 0-10 Numeric Is Patient Pain Free? Yes Yes Yes Teaching: Wound Center Dressing wound -Person Taught Patient,Family -Teaching Method Discussion, Demonstration -Response to teaching Verbalize understanding WC - Visit Discharge Discharge Condition Stable Stable Stable Ambulatory Status Ambulatory Ambulatory Ambulatory Transportation Private Auto Private Auto Private Auto Medication Reconcilliation completed & No Yes No provided to patient/care provider Clinical Summary of Care Provided Yes Yes Yes Assessment/Plan Assessment/Plan (1) Non-pressure chronic ulcer of right ankle with fat layer exposed: CODE(S): L97.312 - Non-pressure chronic ulcer of right ankle with fat layer exposed PLAN: Patient was examined and evaluated. All findings were discussed with the patient. All questions were answered to the patient's satisfaction. Excisional debridement down to and including subcutaneous tissue of the medial ankle full-thickness ulceration with a number 5 mm dermal curette without incident. Predebridement measurement was 0.9 x 0.2 x 0.1 cm. Postdebridement measurement is 1.1 x 0.3 x 0.1 cm. The ulceration was dressed with Aileen, Betadine paint dry sterile dressing with compression. Patient was instructed to change her dressing every other day. Follow-up at the wound care center with Dr. Emerson in 1 week. (2) Venous insufficiency: CODE(S): I87.2 - Venous insufficiency (chronic) (peripheral)
[2023-04-13 10:43] VITALS: BP 179/65; PULSE 78; RESP 20; TEMP 36.4; BMI 21.6
--- NOTE | 2023-04-13 11:05 | PN.PCM_ITS ---
History of Present Illness Date of Service: 04/13/23 Chief Complaint: Right leg wound History of Wound: Right leg wound Progress of Wound: Mrs. Booker is a 78-year-old female presenting to the wound care center today for evaluation and treatment of a full-thickness ulceration to the medial side of her right ankle. Patient was seen by her primary care physician who was treating her with open to air treatment, Neosporin and gauze. Patient states that she notices a scab to the area and was referred to the wound care center for further evaluation for treatment to help get her full-thickness wound to close. Patient admits to pain especially at night when she is in a laying down position. Treatment thus far has been by her applying Neosporin and gauze. She has not tried any antibiotics. She admits there is some redness to the surrounding tissue of the wound. She denies any drainage. She does not wear compression. She denies trauma to the area. Denies constitutional symptoms. No other pedal complaints at this time. Subjective Subjective Mrs. Booker is a 78-year-old female presenting to wound care center follow-up evaluation of venous stasis ulceration to the medial aspect of the right ankle. Patient has been doing home dressing changes with Aileen dry sterile dressing and a single layer Tubigrip to right lower extremity. Patient followed up with vascular surgeon we will plan for great saphenous vein ablation on 04/21/[address] Klein. She denies trauma. Denies constitutional symptoms. No other pedal complaints at this time. Objective Data Objective Data Vital Signs: Vital Signs Temp Pulse Resp BP O2 Del Method 97.6 F L 78 20 H 179/65 H Room Air 04/13/23 10:43 04/13/23 10:43 04/13/23 10:43 04/13/23 10:43 04/06/23 10:35 Oxygen Delivery Method Room Air Weight: 62.596 kg Body Mass Index (BMI) 21.6 Lab / Micro Data Micro: Microbiology 03/23/23 09:25 Wound - Ankle Gram Stain - Final 03/23/23 09:25 Wound - Ankle Wound Culture - Final Staphylococcus epidermidis 03/23/23 09:25 Wound - Ankle Anaerobic Culture - Final Clostridium group Physical Exam Narrative Vascular: DP and PT pulses are palpable. CFT is brisk. Skin temperature gradient is warm to warm from proximal ankle to distal digits. Blanchable erythema is appreciated to the periwound of the right lower extremity. Nonpitting edema is appreciated to the right lower extremity. Cobblestone appearance appreciated to the medial aspect of the right leg with hemosiderin deposits. Neurological: Light touch intact. Patient response to painful stimuli. Dermatological: Full-thickness ulceration measuring 0.6 x 0.5 x 0.1 cm. Wound base is granular in nature. No drainage. No malodor. Evidence of blanchable erythema to periwound. Evidence of cobblestone appearance around periwound as well. Excisional debridement down to and including subcutaneous tissue of the medial ankle full-thickness ulceration with a number 5 mm dermal curette without incident. Predebridement measurement was 0.5 x 0.4 x 0.1 cm. Postdebridement measurement is 0.6 x 0.5 x 0.1 cm. Musculoskeletal: Mild pain to palpation of full-thickness ulceration of the right ankle. No pain with calf compression. Debridement Note Debridement Note Debridement Free Text: Excisional debridement down to and including subcutaneous tissue of the medial ankle full-thickness ulceration with a number 5 mm dermal curette without incident. Predebridement measurement was 0.5 x 0.4 x 0.1 cm. Postdebridement measurement is 0.6 x 0.5 x 0.1 cm. Post-Debridement Measurements and Additional Note: Post-Debridement Measurements/Treatment - Nurse 1 - General Ulcer Assessment Start: 03/23/23 08:49 Freq: Status: Active Protocol: [email or web address] Activity Type Activity Date Activity User E-sign Co-sign Detail Recorded Client Recorded Date Recorded By Document 03/23/23 08:50 Desktop 03/23/23 09:06 GM Document 03/30/23 14:43 [facility] Desktop 03/30/23 14:51 BM Document 04/06/23 10:35 KW Desktop 04/06/23 10:46 KW Document 04/13/23 10:43 DL Desktop 04/13/23 10:48 DL 03/23/23 03/30/23 04/06/23 08:50 14:43 10:35 - Today's Visit Information Type of service Initial Visit Follow-up Visit Follow-up Visit (Physician/ADJUNCT COMMUNICATIONS FACULTY MEMBER (Physician/ADJUNCT COMMUNICATIONS FACULTY MEMBER ) ) Arrival Mode Ambulatory Ambulatory Ambulatory Transfer Assistance None None Transfer Assist (Other) Accompanied by Patient Identification Verified (Name & Yes Yes ) Patient Requires Transmission-Based No No Precautions Safety Precautions NA Height and Weight Height 5 ft 7 in Weight 62.596 kg Weight in Pounds 138.0 lbs Weight Measurement Method Stated by Patient Body Mass Index (BMI) 21.6 21.6 21.6 BMI Classification Normal Normal Normal BSA - Hugo 1.73 Vital Signs Temperature (97.8 F-99.1 F) 97.2 F L 97.0 F L Temperature Source Temporal Temporal Pulse Rate (60-100) 79 79 78 Pulse Location Monitor Monitor Monitor Respiratory Rate (12-18) 16 18 Respiratory rate source Observation Observation Observation Oxygen Delivery Method Room Air Room Air Room Air Blood Pressure (90/60-120/80) 148/88 H 153/83 H 169/81 H Blood Pressure Mean (mm Hg) 108 106 110 Source Monitor Monitor Monitor Position Sitting Sitting Sitting Blood Pressure Location Right Arm Right Arm Left Arm History Since Last Visit- (Skip if this is Patient's initial visit) Have you changed medications since your No No last visit? Any new allergies or adverse reactions No No Had a fall/change in ADL's that may No No increase risk of falls Signs or symptoms of abuse and/or No No neglect since last visit Have you been in the hospital since your No No last visit? Has dressing in place as prescribed Yes Yes Has compression in place as prescribed Yes Yes Has offloadiing in place as prescribed N/A N/A Experienced any changes in pain level or No No management Left Footwear Regular Shoe Regular Shoe Regular Shoe Right Footwear Regular Shoe Regular Shoe Regular Shoe Pain Scale: 0-10 Numeric Is Patient Pain Free? Yes Yes Yes Lower Extremity Assessment/ Foot Assessment/ Toe Nail Assessment Right -Posterior Tibial Palpable Yes -Posterior Tibial Doppler Multiphasic -Dorsalis Pedis Palpable Yes -Dorsalis Pedis Doppler Multiphasic -Extremity Color Pale -Hair Growth on Legs No -Hair Growth on Toes No -Temperature of Extremity Warm -Capillary Refill Less than 3 Seconds -Dependent Rubor Yes -Blanched when Elevated No -Lipodermatosclerosis No -Other Deformity No -Prior Foot Ulcer No -Charcot Joint No -Prior Amputation No -Thick No -Discolored No -Deformed No -Improper Length & Hygeine No Left -Claudication Assessment None -Posterior Tibial Palpable Yes -Posterior Tibial Doppler Multiphasic -Dorsalis Pedis Palpable Yes -Dorsalis Pedis Doppler Multiphasic -Extremity Color Pale -Hair Growth on Legs No -Hair Growth on Toes No -Temperature of Extremity Warm -Capillary Refill Less than 3 Seconds -Dependent Rubor Yes -Blanched when Elevated No -Other Deformity No -Prior Foot Ulcer No -Charcot Joint No -Prior Amputation No -Thick No -Discolored No -Deformed No -Improper Length & Hygeine No Communication Assessment Preferred language [place] Champion Of Sustainable [employer] Required No Able to Read Yes Able to Write Yes Communication Tools None Caregiver Communication Skills No Impairment Impairment Right Hearing Abillity Normal Left Hearing Abillity Normal Visual Assistive Devices Glasses Teaching Assessment Preferences Verbal,Written Barriers to Learning None Readiness To Learn Good Willingness to Engage in Self Management High Activies Readiness to Engage in Self Management High Activities Anxiety Level Calm Cooperation Cooperative Does Patient Smoke tobacco or other No substances Functional Assessment Recent Decline in Ability to Perform Denies Any Declines Assistive Device With Patient N/A Culture/Presybeterian/Microbiology Technician Cultural/Presybeterian Needs that may affect No Treatment Plan Would you allow [facility] air surveillance operator to No meet you for the purpose of spiritual/ emotional support? Microbiology Technician to contact place of hindu No 04/13/23 10:43 WC - Today's Visit Information Type of service Follow-up Visit (Physician/ADJUNCT COMMUNICATIONS FACULTY MEMBER ) Arrival Mode Ambulatory Transfer Assistance Other Transfer Assist (Other) nurse and Accompanied by Patient Identification Verified (Name & Yes ) Patient Requires Transmission-Based No Precautions Safety Precautions Height and Weight Height Weight Weight in Pounds Weight Measurement Method Body Mass Index (BMI) 21.6 BMI Classification Normal BSA - Hugo Vital Signs Temperature (97.8 F-99.1 F) 97.6 F L Temperature Source Temporal Pulse Rate (60-100) 78 Pulse Location Respiratory Rate (12-18) 20 H Respiratory rate source Observation Oxygen Delivery Method Blood Pressure (90/60-120/80) 179/65 H Blood Pressure Mean (mm Hg) 103 Source Monitor Position Sitting Blood Pressure Location Left Arm History Since Last Visit- (Skip if this is Patient's initial visit) Have you changed medications since your No last visit? Any new allergies or adverse reactions No Had a fall/change in ADL's that may No increase risk of falls Signs or symptoms of abuse and/or No neglect since last visit Have you been in the hospital since your No last visit? Has dressing in place as prescribed Yes Has compression in place as prescribed Yes Has offloadiing in place as prescribed N/A Experienced any changes in pain level or No management Left Footwear Right Footwear Pain Scale: 0-10 Numeric Is Patient Pain Free? Yes Lower Extremity Assessment/ Foot Assessment/ Toe Nail Assessment Right -Posterior Tibial Palpable -Posterior Tibial Doppler -Dorsalis Pedis Palpable -Dorsalis Pedis Doppler -Extremity Color -Hair Growth on Legs -Hair Growth on Toes -Temperature of Extremity -Capillary Refill -Dependent Rubor -Blanched when Elevated -Lipodermatosclerosis -Other Deformity -Prior Foot Ulcer -Charcot Joint -Prior Amputation -Thick -Discolored -Deformed -Improper Length & Hygeine Left -Claudication Assessment -Posterior Tibial Palpable -Posterior Tibial Doppler -Dorsalis Pedis Palpable -Dorsalis Pedis Doppler -Extremity Color -Hair Growth on Legs -Hair Growth on Toes -Temperature of Extremity -Capillary Refill -Dependent Rubor -Blanched when Elevated -Other Deformity -Prior Foot Ulcer -Charcot Joint -Prior Amputation -Thick -Discolored -Deformed -Improper Length & Hygeine Communication Assessment Preferred wildlife photographer Required Able to Read Able to Write Communication Tools Caregiver Communication Skills Impairment Right Hearing Abillity Left Hearing Abillity Visual Assistive Devices Teaching Assessment Preferences Barriers to Learning Readiness To Learn Willingness to Engage in Self Management Activies Readiness to Engage in Self Management Activities Anxiety Level Cooperation Does Patient Smoke tobacco or other substances Functional Assessment Recent Decline in Ability to Perform Assistive Device With Patient Culture/Presybeterian/Microbiology Technician Cultural/Presybeterian Needs that may affect Treatment Plan Would you allow our hospital air surveillance operator to meet you for the purpose of spiritual/ emotional support? Microbiology Technician to contact place of hindu WC - Nurse 1 - General Ulcer Measurement Start: 03/23/23 08:49 Freq: Status: Active Protocol: Activity Type Activity Date Activity User E-sign Co-sign Detail Recorded Client Recorded Date Recorded By Document 03/23/23 08:50 Desktop 03/23/23 09:06 GM Document 03/30/23 14:43 [facility] Desktop 03/30/23 14:51 BMF Document 04/06/23 10:35 KW Desktop 04/06/23 10:46 KW Document 04/13/23 10:43 DL Desktop 04/13/23 10:48 DL 03/23/23 03/30/23 04/06/23 08:50 14:43 10:35 Wound Center Nurse 1 #1 RIGHT Medial Ankle -Combined with other wound No No -Current Size (cm) - Length 2.0 2.1 0.1 -Current Size (cm) - Width 1.6 0.5 0.1 -Current Size (cm) - Depth 0.1 0.1 0.1 -Total Square Cm 3.20 1.05 0.01 -Date of Last Picture (Recall this 03/23/23 04/06/23 field) -Photo Taken Yes No Yes -Epithelialization Small 1-33% -Tunneling No No No -Undermining/Tunneling No No No -Circular Undermining No No No -Exudate Amt None Present Medium Small -Exudate Type Serosanguineous Yellow/Green -Wound Margin Distinct, Distinct, Distinct, Outline Outline Outline Attached Attached Attached -Granulation Amt None Present (0 Small (1-33%) Medium (34-66%) %) -Granulation Quality Red Red -Slough/Fibrin Yes No -Necrosis Amt Large (67-100%) -Necrotic Tissue Type Eschar Adherent Slough -Structure Exposed N/A -Texture (Angela-wound Skin Appearance) Assessed Assessed, Assessed Scarring -Moisture (Angela-wound Skin Appearance) Assessed Assessed,Dry/ Assessed Scaly -Color (Angela-wound Skin Appearance) Assessed, Assessed Assessed Hemosiderin Staining -Temperature (Angela-wound Skin No Abnormality No Abnormality Appearance) (Pt Warm) (Pt Warm) -Tenderness on Palpation (Angela-wound No No Skin Appearance) -Ulcer Cleansing Soap and Water Rinsed/ Rinsed/ Irrigated with Irrigated with Saline Saline -Foul Odor after Cleansing No No No -Anesthetic Used 5% Lidocaine 5% Lidocaine 5% Lidocaine Gel Gel Gel Lower Limb Edema Present Yes Right Calf (cm) 34 33.2 Right Ankle (cm) 22 22 04/13/23 10:43 Wound Center Nurse 1 #1 RIGHT Medial Ankle -Combined with other wound -Current Size (cm) - Length 2.2 -Current Size (cm) - Width 0.6 -Current Size (cm) - Depth 0.1 -Total Square Cm 1.32 -Date of Last Picture (Recall this field) -Photo Taken -Epithelialization -Tunneling -Undermining/Tunneling -Circular Undermining -Exudate Amt Small -Exudate Type Serosanguineous -Wound Margin -Granulation Amt -Granulation Quality -Slough/Fibrin -Necrosis Amt -Necrotic Tissue Type -Structure Exposed -Texture (Angela-wound Skin Appearance) Assessed -Moisture (Angela-wound Skin Appearance) Assessed -Color (Nagela-wound Skin Appearance) Assessed -Temperature (Angela-wound Skin No Abnormality Appearance) (Pt Warm) -Tenderness on Palpation (Angela-wound Skin Appearance) -Ulcer Cleansing Soap and Water -Foul Odor after Cleansing No -Anesthetic Used 5% Lidocaine Gel Lower Limb Edema Present Right Calf (cm) 33 Right Ankle (cm) 22 WC - Nurse 2 - General Ulcer CM Notes Start: 03/23/23 08:49 Freq: Status: Active Protocol: Activity Type Activity Date Activity User E-sign Co-sign Detail Recorded Client Recorded Date Recorded By Document 03/23/23 09:26 [employer] Laptop 03/23/23 09:28 [employer] Document 03/30/23 15:22 [employer] Laptop 03/30/23 15:25 [employer] Document 04/06/23 10:53 [employer] Laptop 04/06/23 10:56 [employer] Document 04/13/23 10:56 [employer] Laptop 04/13/23 10:57 [employer] 03/23/23 03/30/23 04/06/23 09:26 15:22 10:53 Wound Center Nurse 2 #1 RIGHT Medial Ankle -Time 09:26 15:22 10:53 -Correct Patient Yes Yes Yes -Correct Side, Site, Position Yes Yes Yes -Correct Procedure Yes Yes Yes -Procedure Performed Yes Yes Yes -Type of Procedure Debridement Debridement Debridement -Clinical Debridement Subcutaneous Subcutaneous Subcutaneous -Tissue Removed Subcutaneous Subcutaneous Subcutaneous -Post Debridement (cm) - Length 2.2 2.0 1.1 -Post Debridement (cm) - Width 1.3 1.0 1.3 -Post Debridement (cm) - Depth 0.1 0.1 0.1 -Total Square (Post) (cm) 2.86 2.00 1.43 -Area of Debridement (cm) - Length 2.2 2.0 1.1 -Area of Debridement (cm) - Width 1.3 1.0 1.3 -Total Square (Area) (cm) 2.86 2.00 1.43 -Tunneling No No No -Undermining/Tunneling No No No -Circular Undermining No No No -Wound/Ulcer Outcome Not Healed Not Healed Not Healed -Ulcer Cleansing Rinsed/ Rinsed/ Rinsed/ Irrigated with Irrigated with Irrigated with Saline Saline Saline -Foul Odor after Cleansing No No No -Bioengineered Tissue No No No -Bleeding Controlled with Pressure Pressure Pressure -Treatment Response Procedure Procedure Procedure Tolerated Well Tolerated Well Tolerated Well -Offloading No No No -Debridement - Subq, 1st 20sq cm Yes Yes Yes Pain Scale: 0-10 Numeric Is Patient Pain Free? Yes Yes Yes 04/13/23 10:56 Wound Center Nurse 2 #1 RIGHT Medial Ankle -Time 10:57 -Correct Patient Yes -Correct Side, Site, Position Yes -Correct Procedure Yes -Procedure Performed Yes -Type of Procedure Debridement -Clinical Debridement Subcutaneous -Tissue Removed Subcutaneous -Post Debridement (cm) - Length 0.6 -Post Debridement (cm) - Width 0.5 -Post Debridement (cm) - Depth 0.1 -Total Square (Post) (cm) 0.30 -Area of Debridement (cm) - Length 0.6 -Area of Debridement (cm) - Width 0.5 -Total Square (Area) (cm) 0.30 -Tunneling No -Undermining/Tunneling No -Circular Undermining No -Wound/Ulcer Outcome Not Healed -Ulcer Cleansing Rinsed/ Irrigated with Saline -Foul Odor after Cleansing No -Bioengineered Tissue No -Bleeding Controlled with Pressure -Treatment Response Procedure Tolerated Well -Offloading No -Debridement - Subq, 1st 20sq cm Yes Pain Scale: 0-10 Numeric Is Patient Pain Free? Yes - Nurse 3 - General Ulcer D/C NN Start: 03/23/23 08:49 Freq: Status: Active Protocol: Activity Type Activity Date Activity User E-sign Co-sign Detail Recorded Client Recorded Date Recorded By Document 03/23/23 09:35 KW Desktop 03/23/23 09:37 KW Document 03/30/23 15:40 GM Desktop 03/30/23 15:42 GM Edit Result 03/30/23 15:40 GM (1) [id number] 03/30/23 15:49 BMF Document 04/06/23 10:58 KW Desktop 04/06/23 10:59 KW (1) Right - Tubular Bandage => Single Layer - Size D ($) => 2 - Other => sent extra Left - Tubular Bandage => Single Layer - Size D ($) => 2 - Other => sent extra 03/23/23 03/30/23 04/06/23 09:35 15:40 10:58 Wound Care Center Nurse 3 #1 RIGHT Medial Ankle -Ulcer Cleansing Rinsed/ Not Cleansed Irrigated with Saline -Foul Odor after Cleansing No -Primary Dressing Applied Mepilex Border, Mepilex Border, Promogran Promogran Promogran Aileen Matter Aileen Matter Aileen Matter -Primary Dressing Covered/Secured with Dry Gauze & Roll Gauze, Secured with Tape -Mepilex Border 1 1 -Promogran Aileen Matter 1 1 1 Right -Lotion applied to leg before No compression wrap -Tubular Bandage Single Layer Single Layer Single Layer -Size of Tubigrip Used Size D Size D Size D -Size D ($) 1 2 1 -Other sent extra Left -Lotion applied to leg before No compression wrap -Tubular Bandage Single Layer Single Layer Single Layer -Size of Tubigrip Used Size D Size D Size D -Size D ($) 1 2 1 -Other sent extra Pain Scale: 0-10 Numeric Is Patient Pain Free? Yes Yes Yes Teaching: Wound Center Dressing wound -Person Taught Patient,Family -Teaching Method Discussion, Demonstration -Response to teaching Verbalize understanding WC - Visit Discharge Discharge Condition Stable Stable Stable Ambulatory Status Ambulatory Ambulatory Ambulatory Transportation Private Auto Private Auto Private Auto Medication Reconcilliation completed & No Yes No provided to patient/care provider Clinical Summary of Care Provided Yes Yes Yes Assessment/Plan Assessment/Plan (1) Non-pressure chronic ulcer of right ankle with fat layer exposed: CODE(S): L97.312 - Non-pressure chronic ulcer of right ankle with fat layer exposed PLAN: Patient was examined and evaluated. All findings were discussed with the patient. All questions were answered to the patient's satisfaction. Excisional debridement down to and including subcutaneous tissue of the medial ankle full-thickness ulceration with a number 5 mm dermal curette without incident. Predebridement measurement was 0.5 x 0.4 x 0.1 cm. Postdebridement measurement is 0.6 x 0.5 x 0.1 cm. Patient's right lower extremities were cleaned and patted dry. Hydrogel was applied to the full-thickness ulceration followed by Adaptic and dry sterile dressing with size E Tubigrip. Patient will change her dressing every other day and will follow-up in 1 week at the wound care center. She also follow-up with Dr. Klein on 04/21/2023 for intervention to the right lower extremity. She left the office pleased to visit. Follow-up at the wound care center with Dr. Emerson in 1 week. (2) Venous insufficiency: CODE(S): I87.2 - Venous insufficiency (chronic) (peripheral)
== END 2023-04-13 23:59 | disposition home or self-care (01) ==
LOC: WC 10:45
PROVIDERS: PCP Family Medicine; Referring Provider Family Medicine; Visit Provider Podiatrist Foot & Ankle Surgery
DX: L97.312 Non-pressure chronic ulcer of right ankle with fat layer exposed (principal); I87.2 Venous insufficiency (chronic) (peripheral); Z79.899 Other long term (current) drug therapy; M25.571 Pain in right ankle and joints of right foot; L03.115 Cellulitis of right lower limb
CPT/HCPCS: 11042; 87070; 87075; 87077; 87186; 87205; 93923; 93970; 99214; G0463

== ENCOUNTER 2023-04-21 07:12 | Day surgery (SDC) | payer MEDICARE, SELFPAY ==
[2023-04-20 09:14] VITALS: BMI 20.8
--- OUTSIDE RECORDS SUMMARY | 2023-04-21 07:19 | XMS RPT_ITS | CCD ---
Author Name Unknown Address [address] [place] [address] Organization [facility] Care Team Providers Care Sales Agent Insurance Name Role Phone Michelle Peña Unavailable Unavailable PROVIDER, UNKNOWN Unavailable Unavailable No, PCP Unavailable Unavailable Michelle Peña Unavailable Unavailable PROVIDER, UNKNOWN Unavailable Unavailable No, PCP Unavailable Unavailable ТАТЬЯНА ROBINS Unavailable Unavailable ТАТЬЯНА ROBINS Unavailable Unavailable ТАТЬЯНА ROBINS Unavailable Unavailable GIBRAN SAMUEL Referring Unavailable MITULMAHNAZ GARCIA Admitting Unavailable MITULMAHNAZ GARCIA Primary Care Unavailable MITULMAHNAZ THOMASON Attending Unavailable GIBRAN SAMUEL Consulting Unavailable PROVIDER, UNKNOWN Consulting Unavailable PROVIDER, UNKNOWN Consulting Unavailable PROVIDER, UNKNOWN Consulting Unavailable GIBRAN SAMUEL Admitting Unavailable GIBRAN SAMUEL Primary Care Unavailable GIBRAN SAMUEL Consulting Unavailable GIBRAN SAMUEL Attending Unavailable PROVIDER, UNKNOWN Consulting Unavailable PROVIDER, UNKNOWN Consulting Unavailable PROVIDER, UNKNOWN Consulting Unavailable Jimmie MOORE, Gibran Gonzalez Unavailable Angel MOORE, Dr. Greer Unavailable [phone] Yossi Tineo DO Unavailable Dr. Ten Joyce MD Unavailable [phone] Dr. Татьяна Robins MD Unavailable [phone] [facility], [facility] Unavailable [facility] Unavailable Jeffrey ER MANAGER, Batsheva Unavailable aTyo RITCHIEN, Anahi Snowden Unavailable Unavailable Miri Bray MA Unavailable Unavailable Cezar MIRZA, Sachi Soni Unavailable Unavailable Alfonso MIRZA, Mya Unavailable Unavailable Julio LEMUS, Moy Snowden Unavailable Saray Kim Unavailable Unavailable Yessy Ward MA Unavailable Unavailable Murphy MIRZA, Saskia Unavailable Unavaila solis Lynne LPN, Tala Unavailable Unavailable Víctor LOCKWOOD, Piedad Ayala Unavailable Unavaila ble Lucila ER MANAGER, Ardha Unavailable Unavailable Glenn ER MANAGER, Allen Unavailable Unavailable Dmitri LOCKWOOD, Denisse Unavailable Jaky LOCKWOOD, Alondra Casanova Unavailable Unavailable Mutersbarozina ER MANAGER, Melva K Unavailable Unavai jessica Hanks PA-C, Danyelle Johnson Unavailable Pooja [employer], Tatiana Unavailable Unavailable Donna ER MANAGER, Sheyla M Unavailable Unavailab le Lucero ER MANAGER, Michelle Mathis Unavailable Unavailab alex Tavares MA, Tala Unavailable Unavailable Anuradha MOORE, Ten Ayala Unavailable Vess ER MANAGER, Nekristinae L Unavailable Unavailable Wengerd ER MANAGER, Lisbet Unavailable Unavailabl e Karenugg ER MANAGER, Kacie Unavailable Unavailable Unavailable Unavailable Allergies Allergy Classification Reported Allergen(s) Allergy Type Date of Onset Reaction(s) Facility NEGATED: Highlighted row has been ruled out! (1 source) [facility]. NEGATED: Highlighted row has been ruled out! (1 source) [facility]. NEGATED: Highlighted row has been ruled out! (1 source) [facility]. NEGATED: Highlighted row has been ruled out! (1 source) [facility]. NEGATED: Highlighted row has been ruled out! (1 source) [facility]. NEGATED: Highlighted row has been ruled out! (1 source) [facility]. NEGATED: Highlighted row has been ruled out! (1 source) [facility]. NEGATED: Highlighted row has been ruled out! (1 source) [facility]. Medications Current Medications Medication Drug Class(es) Dates Sig (Normalized) Sig (Original) amLODIPine 5 mg / benazepril hydrochloride 20 mg oral capsule (4 sources) Dihydropyridine Calcium Channel Maria Elena, Angiotensin Converting Enzyme Inhibitor Start: 01-28-2023 atorvastatin 20 mg oral tablet (12 sources) HMG-CoA Reductase Inhibitor Start: 04-08-2023 Completed/Discontinued Medications Medication Drug Class(es) Dates Sig (Normalized) Sig (Original) alendronic acid 70 mg oral tablet (4 sources) Bisphosphonate Start: 03-09-2022 End: 09-16-2022 amoxicillin 500 mg oral tablet (8 sources) Penicillin-class Antibacterial Start: 02-25-2022 End: 09-16-2022 Problems Active Problems Problem Classification Problem Date Documented Da te Episodic/Chronic Cancer of colon (4 sources) Malignant tumor of colon; Translations: [Malignant neoplasm of colon, unspecified] 05-25-2016 Chronic Cancer of colon (16 sources) History of malignant neoplasm of colon; Translations: [Personal history of other malignant neoplasm of large intestine] 03-21-2023 Episodic Chronic ulcer of skin (4 sources) Skin ulcer; Translations: [Non-pressure chronic ulcer of skin of other sites with unspecified severity] 04-10-2017 Chronic Conditions associated with dizziness or vertigo (8 sources) Dizziness; Translations: [Dizziness and giddiness] 08-12-2022 Episodic Disorders of lipid metabolism (20 sources) Hyperlipidemia, unspecified; Translations: [Hyperlipidemia] Onset: 8 03-21-2023 Chronic Disorders of teeth and jaw (4 sources) Toothache; Translations: [Other specified disorders of teeth and supporting structures] 11-14-2020 Episodic E Codes: Natural/environment (4 sources) Insect bite - wound; Translations: [Bitten or stung by nonvenomous insect and other nonvenomous arthropods, initial encounter] 09-01-2016 Episodic Esophageal disorders (20 sources) Gastroesophageal reflux disease; Translations: [Gastro-esophageal reflux disease without esophagitis] 03-21-2023 Chronic Essential hypertension (20 sources) Essential (primary) hypertension; Translations: [Benign hypertension] Onset: 8 03-21-2023 Chronic Genitourinary symptoms and ill-defined conditions (12 sources) Female stress incontinence; Translations: [Stress incontinence (female) (male)] 03-21-2023 Chronic Genitourinary symptoms and ill-defined conditions (20 sources) Urinary symptoms ; Translations: [Unspecified symptoms and signs involving the genitourinary system] 02-26-2021 Episodic Immunizations and screening for infectious disease (20 sources) Needs influenza immunization; Translations: [Encounter for immunization] 01-18-2018 Episodic Influenza (8 sources) Influenza; Translations: [Influenza due to unidentified influenza virus with other respiratory manifestations] 03-22-2017 Episodic Lymphadenitis (4 sources) Cervical lymphadenopathy; Translations: [Localized enlarged lymph nodes] 05-29-2010 Episodic Nonmalignant breast conditions (8 sources) Fibrocystic disease of breast; Translations: [Diffuse cystic mastopathy of unspecified breast] 03-21-2023 Chronic Osteoporosis (20 sources) Osteoporotic kyphosis; Translations: [Age-related osteoporosis without current pathological fracture] 02-25-2022 Chronic Other acquired deformities (4 sources) Kyphosis deformity of spine; Translations: [Unspecified kyphosis, site unspecified] 08-13-2019 Chronic Other and unspecified benign neoplasm (3 sources) Personal history of colonic polyps; Translations: [Personal history of colonic polyps] Onset: 8 Episodic Other and unspecified benign neoplasm (8 sources) Polyp of colon; Translations: [Polyp of colon] 03-21-2023 Episodic Other connective tissue disease (16 sources) History of repair of hip joint; Translations: [Presence of unspecified artificial hip joint] 03-21-2023 Chronic Other connective tissue disease (4 sources) Bursitis of right shoulder; Translations: [Bursitis of right shoulder] 06-04-2015 Episodic Other connective tissue disease (4 sources) Other bursitis 12-17-2009 Episodic Other ear and sense organ disorders (8 sources) Hearing loss; Translations: [Unspecified hearing loss, unspecified ear] 03-21-2023 Chronic Other fractures (12 sources) Fracture of pelvis; Translations: [Fracture of unspecified parts of lumbosacral spine and pelvis, initial encounter for closed fracture] 03-21-2023 Episodic Other gastrointestinal disorders (8 sources) Diarrhea; Translations: [Diarrhea, unspecified] 03-21-2023 Episodic Other inflammatory condition of skin (8 sources) Unspecified pruritic disorder 11-30-2016 Episodic Other injuries and conditions due to external causes (8 sources) At risk for falls ; Translations: [History of falling] 06-30-2018 Episodic Other injuries and conditions due to external causes (4 sources) Injury of ankle; Translations: [Unspecified injury of unspecified ankle, initial encounter] 07-16-2021 Episodic Other lower respiratory disease (4 sources) Rib pain; Translations: [Pleurodynia] 08-28-2021 Episodic Other screening for suspected conditions (not mental disorders or infectious disease) (20 sources) Patient encounter status; Translations: [Encounter for screening mammogram for malignant neoplasm of breast] 08-27-2021 Episodic Other skin disorders (12 sources) Eruption; Translations: [Rash and other nonspecific skin eruption] 03-21-2023 Episodic Other skin disorders (4 sources) Skin irritation ; Translations: [Other skin changes] 02-09-2022 Episodic Other skin disorders (4 sources) Skin lesion; Translations: [Disorder of the skin and subcutaneous tissue, unspecified] 11-30-2016 Episodic Other skin disorders (4 sources) Inflamed seborrheic keratosis; Translations: [Inflamed seborrheic keratosis] 12-19-2013 Episodic Other upper respiratory infections (4 sources) Sinusitis; Translations: [Chronic sinusitis, unspecified] 05-18-2022 Chronic Other upper respiratory infections (4 sources) Upper respiratory infection; Translations: [Acute upper respiratory infection, unspecified] 02-01-2014 Episodic Phlebitis; thrombophlebitis and thromboembolism (4 sources) Phlebitis; Translations: [Phlebitis and thrombophlebitis of unspecified site] 02-09-2022 Episodic Prolapse of female genital organs (2 sources) Cystocele, unspecified; Translations: [Cystocele, unspecified] Onset: 8 Chronic Residual codes; unclassified (12 sources) Body mass index 20-24 - normal; Translations: [Body mass index (BMI) 23.0-23.9, adult] 06-30-2018 Episodic Skin and subcutaneous tissue infections (8 sources) Cellulitis; Translations: [Cellulitis, unspecified] 11-22-2018 Episodic Unclassified (16 sources) Onset: 3 11-23-2017 Unclassified (4 sources) 09-16-2022 Unclassified (4 sources) 09-16-2022 Unclassified (4 sources) 09-16-2022 Urinary tract infections (20 sources) Urinary tract infectious disease; Translations: [Urinary tract infection, site not specified] 12-21-2021 Episodic Varicose veins of lower extremity (16 sources) Ankle ulcer; Translations: [Varicose veins of unspecified lower extremity with ulcer of ankle] 03-21-2023 Episodic Past or Other Problems Problem Classification Problem Date Documented Da te Episodic/Chronic Other gastrointestinal disorders (2 sources) Disease of intestine, unspecified; Translations: [Disease of intestine, unspecified] Onset: 04-26-2017 Episodic Results Test Name Value Interpretation Reference Range Facil ity Vital Signs Date Time Vital Sign Value Performing Clinician Faci lity 03-21-2023 07:57-0500 Body height 165.1 cm Gibran Samuel MD Work Phone: [employer]; [facility]. 03-21-2023 07:57-0500 Body mass index (BMI) [Ratio] 21.97 kg/m2 Gibran Samuel MD Work Phone: [facility].; [facility]. 03-21-2023 07:57-0500 Body surface area Derived from formula 1.66 m2 Gibran Sameul MD Work Phone: [employer].; [facility]. 03-21-2023 07:57-0500 Body weight 59.88 kg Gibran Samuel MD Work Phone: [employer].; [facility]. 03-21-2023 07:57-0500 Diastolic blood pressure 79 mm[Hg] Gibran Samuel MD Work Phone: [employer].; [facility]. 03-21-2023 07:57-0500 Heart rate 76 /min Gibran Samuel MD Work Phone: [employer].; [employer]. 03-21-2023 07:57-0500 Systolic blood pressure 136 mm[Hg] Gibran Samuel MD Work Phone: [employer].; [facility]. 02-17-2023 09:31-0500 Body height 165.1 cm Gibran Samuel MD Work Phone: [employer].; [employer]. 02-17-2023 09:31-0500 Body mass index (BMI) [Ratio] 22.3 kg/m2 Gibran Samuel MD Work Phone: [place] [employer] [email or web address].; [employer]. 02-17-2023 09:31-0500 Body surface area Derived from formula 1.67 m2 Gibran Samuel MD Work Phone: [employer].; [employer]. 02-17-2023 09:31-0500 Body weight 60.78 kg Gibran Samuel MD Work Phone: [employer].; [employer]. 02-17-2023 09:31-0500 Diastolic blood pressure 66 mm[Hg] Gibran Samuel MD Work Phone: [place] [employer].; [employer]. 02-17-2023 09:31-0500 Heart rate 78 /min Gibran Samuel MD Work Phone: [employer].; [employer]. 02-17-2023 09:31-0500 Systolic blood pressure 146 mm[Hg] Gibran Samuel MD Work Phone: [employer].; [email or web address] 02-10-2023 10:38-0500 Body height 165.1 cm Tala Lynne LPN [facility], [facility].; [email or web address], [employer]. 02-10-2023 10:38-0500 Body mass index (BMI) [Ratio] 22.46 kg/m2 Tala Lynne LPN [facility].; [email or web address] 02-10-2023 10:38-0500 Body surface area Derived from formula 1.67 m2 Tala Lynne LPN [facility], [facility].; [email or web address], [facility]. 02-10-2023 10:38-0500 Body temperature 98.6 [degF] Tala Lynne LPN [facility], [facility].; [email or web address], [employer]. 02-10-2023 10:38-0500 Body weight 61.24 kg [facility].; [employer]. 02-10-2023 10:38-0500 Diastolic blood pressure 98 mm[Hg] Tala Maged ER MANAGER [facility], Inc.; [email or web address] 02-10-2023 10:38-0500 Heart rate 90 /min Tala Maged MIRZA [facility], Inc.; [email or web address] 02-10-2023 10:38-0500 Systolic blood pressure 153 mm[Hg] Tala Lynne ER MANAGER [place] [employer] [facility], Inc.; [employer], [employer] 01-24-2023 10:37-0500 Body height 165.1 cm Michelle Barker [facility], Inc.; [email or web address] 01-24-2023 10:37-0500 Body mass index (BMI) [Ratio] 22.63 kg/m2 Michelle Barker [facility], Inc.; [email or web address] 01-24-2023 10:37-0500 Body surface area Derived from formula 1.68 m2 Becky Stuckey ER MANAGER [place] [employer] [facility], Inc.; [employer], [employer]. 01-24-2023 10:37-0500 Body temperature 98.4 [degF] Michelle Barker [facility] [employer] [facility], Inc.; [employer], [employer] 01-24-2023 10:37-0500 Body weight 61.69 kg Michelle Barker [facility] [employer] [facility], Inc.; [email or web address] 01-24-2023 10:37-0500 Diastolic blood pressure 82 mm[Hg] Michelle Barker ER MANAGER [place] [employer] [facility], Inc.; [employer], [employer]. 01-24-2023 10:37-0500 Heart rate 79 /min BeckyDelfina Barker [facility] [employer] [facility], Inc.; [employer], [employer]. 01-24-2023 10:37-0500 Systolic blood pressure 171 mm[Hg] Michelle Barker ER MANAGER [employer] [facility], Inc.; [employer], [employer] 09-16-2022 08:06-0400 Body weight 63.05 kg Gibran Samuel MD Work Phone: [employer] [email or web address].; [employer] 09-16-2022 08:06-0400 Diastolic blood pressure 68 mm[Hg] Gibran Samuel MD Work Phone: [place] [email or web address] 09-16-2022 08:06-0400 Heart rate 80 /min Gibran Samuel MD Work Phone: [place] [employer], [employer] 09-16-2022 08:06-0400 Systolic blood pressure 138 mm[Hg] Gibran Samuel MD Work Phone: [place] [employer] [facility].; [email or web address] 08-12-2022 13:24-0400 Body height 165.1 cm Tala Lynne LPN [place] [employer] [facility], Inc.; [email or web address] 08-12-2022 13:24-0400 Body mass index (BMI) [Ratio] 23.13 kg/m2 Tala Lynne LPN [place] [employer] [facility], [facility].; [email or web address] 08-12-2022 13:24-0400 Body surface area Derived from formula 1.69 m2 Tala Lynne LPN [place] [employer] [facility], [facility].; [email or web address] 08-12-2022 13:24-0400 Body weight 63.05 kg Tala Lynne LPN [place] [employer] [facility], Inc.; [email or web address] 08-12-2022 13:24-0400 Diastolic blood pressure 77 mm[Hg] Tala Lynne LPN [place] [employer] [facility], [facility].; [email or web address] 08-12-2022 13:24-0400 Heart rate 85 /min Tala Lynne LPN [employer] [facility], [facility].; [email or web address] 08-12-2022 13:24-0400 Systolic blood pressure 147 mm[Hg] Tala Lynne LPN [place] [email or web address] 05-18-2022 09:26-0500 Body height 165.1 cm Gibran Samuel MD Work Phone: [place] [employer] [facility] [employer].; [employer]. 05-18-2022 09:26-0500 Body mass index (BMI) [Ratio] 23.13 kg/m2 Gibran Samuel MD Work Phone: [employer].; [employer]. 05-18-2022 09:26-0500 Body surface area Derived from formula 1.69 m2 Gibran Sameul MD Work Phone: [employer].; [employer]. 05-18-2022 09:26-0500 Body temperature 98.5 [degF] Gibran Samuel MD Work Phone: [employer].; [employer]. 05-18-2022 09:26-0500 Body weight 63.05 kg Gibran Samuel MD Work Phone: [employer].; [facility]. 05-18-2022 09:26-0500 Diastolic blood pressure 78 mm[Hg] Gibran Samuel MD Work Phone: [employer].; [facility]. 05-18-2022 09:26-0500 Heart rate 77 /min Gibran Samuel MD Work Phone: [employer].; [employer]. 05-18-2022 09:26-0500 Inhaled oxygen concentration 20 % Gibran Samuel MD Work Phone: [employer].; [employer]. 05-18-2022 09:26-0500 SaO2% (BldA) [Mass fraction] 99 % Gibran Samuel MD Work Phone: [employer].; [employer]. 05-18-2022 09:26-0500 Systolic blood pressure 163 mm[Hg] Gibran Samuel MD Work Phone: [employer].; [employer]. 03-30-2022 11:16-0500 Body height 165.1 cm Tala Tavares MA [employer].; [employer]. 03-30-2022 11:16-0500 Body mass index (BMI) [Ratio] 23.13 kg/m2 Tala Tavares MA [facility], [facility].; [facility], Inc[employer] 03-30-2022 11:16-0500 Body surface area Derived from formula 1.69 m2 Tala Tavares MA [facility], [facility].; [facility], Inc. 03-30-2022 11:16-0500 Body temperature 98.6 [degF] Tala Tavares MA [facility], [facility].; [facility] [email or web address], [facility]. 03-30-2022 11:16-0500 Body weight 63.05 kg Tala Tavares MA [facility], [facility].; [facility], [facility]. 03-30-2022 11:16-0500 Diastolic blood pressure 75 mm[Hg] Tala Tavares MA [facility], [facility].; [place] [employer], [facility]. 03-30-2022 11:16-0500 Heart rate 89 /min Tala Tavares MA [facility].; [facility], [facility]. 03-30-2022 11:16-0500 Systolic blood pressure 155 mm[Hg] Tala Tavares MA [facility], [facility].; [facility], [facility]. 02-25-2022 08:55-0500 Body height 165.1 cm Gibran Samuel MD Work Phone: [facility].; [employer] 02-25-2022 08:55-0500 Body mass index (BMI) [Ratio] 22.63 kg/m2 Gbiran Samuel MD Work Phone: [facility].; [employer], [facility]. 02-25-2022 08:55-0500 Body surface area Derived from formula 1.68 m2 Gibran Samuel MD Work Phone: [facility].; [employer] 02-25-2022 08:55-0500 Body weight 61.69 kg Gibran Samuel MD Work Phone: [facility] [employer] [facility].; [employer]. 02-25-2022 08:55-0500 Diastolic blood pressure 68 mm[Hg] Gibran Samuel MD Work Phone: [employer].; [employer], [employer] 02-25-2022 08:55-0500 Heart rate 80 /min Gibran Samuel MD Work Phone: [employer].; [employer], [employer] 02-25-2022 08:55-0500 Systolic blood pressure 138 mm[Hg] Gibran Samuel MD Work Phone: [employer].; [employer], [employer] 02-09-2022 10:46-0500 Body height 165.1 cm Tala Tavares MA [employer], [employer] 02-09-2022 10:46-0500 Body mass index (BMI) [Ratio] 22.46 kg/m2 Tala Tavares MA [email or web address], [employer]. 02-09-2022 10:46-0500 Body surface area Derived from formula 1.67 m2 Tala Tavares MA [employer] [facility].; [employer], [employer]. 02-09-2022 10:46-0500 Body weight 61.24 kg Tala Tavares MA [employer].; [employer], [employer] 02-09-2022 10:46-0500 Diastolic blood pressure 79 mm[Hg] Tala Tavares MA [employer].; [employer], [employer]. 02-09-2022 10:46-0500 Heart rate 80 /min Tala Tavares MA [employer], [employer]. 02-09-2022 10:46-0500 Systolic blood pressure 156 mm[Hg] Tala Tavares MA [employer].; [employer], [employer]. 12-21-2021 10:49-0400 Body height 165.1 cm Tala Lynne LPN [employer] [facility].; [employer], [employer]. 12-21-2021 10:49-0400 Body mass index (BMI) [Ratio] 22.96 kg/m2 Tala Lynne LPN [employer].; [facility]. 12-21-2021 10:49-0400 Body surface area Derived from formula 1.69 m2 Tala Lynne LPN [facility].; [facility]. 12-21-2021 10:49-0400 Body temperature 97.8 [degF] Tala Lynne LPN [facility].; [facility]. 12-21-2021 10:49-0400 Body weight 62.6 kg Tala Lynne LPN [facility].; [facility]. 12-21-2021 10:49-0400 Diastolic blood pressure 85 mm[Hg] Tala Lynne LPN [facility].; [facility]. 12-21-2021 10:49-0400 Heart rate 90 /min Tala Lynne LPN [facility].; [facility]. 12-21-2021 10:49-0400 Systolic blood pressure 158 mm[Hg] Tala Lynne LPN [facility].; [facility]. 08-28-2021 10:45-0400 Body height 165.1 cm Danyelle Alex Hanks PA-C Work Phone: [facility].; [facility]. 08-28-2021 10:45-0400 Body mass index (BMI) [Ratio] 22.96 kg/m2 Danyelle Alex Hanks PA-C Work Phone: [facility].; [facility]. 08-28-2021 10:45-0400 Body surface area Derived from formula 1.69 m2 Danyelle Alex Hanks PA-C Work Phone: [facility].; [place] [employer] [facility]. 08-28-2021 10:45-0400 Body temperature 98.6 [degF] Danyelle Johnson Hanks PA-C Work Phone: [facility] [employer] [facility].; [place] [employer] [facility]. 08-28-2021 10:45-0400 Body weight 62.6 kg Danyelle Alex Hanks PA-C Work Phone: [employer].; [employer]. 08-28-2021 10:45-0400 Diastolic blood pressure 80 mm[Hg] Danyelle Johnson Hanks PA-C Work Phone: [employer].; [employer] 08-28-2021 10:45-0400 Heart rate 73 /min Danyelle Johnson Hanks PA-C Work Phone: [employer].; [employer]. 08-28-2021 10:45-0400 Systolic blood pressure 159 mm[Hg] Danyelle Johnson Hanks PA-C Work Phone: [employer].; [employer]. 08-27-2021 08:34-0400 Body height 165.1 cm Gibran Samuel MD Work Phone: [employer].; [employer]. 08-27-2021 08:34-0400 Body mass index (BMI) [Ratio] 23.13 kg/m2 Gibran Samuel MD Work Phone: [employer].; [employer]. 08-27-2021 08:34-0400 Body surface area Derived from formula 1.69 m2 Gibran Samuel MD Work Phone: [employer].; [employer]. 08-27-2021 08:34-0400 Body weight 63.05 kg Gibran Samuel MD Work Phone: [employer].; [employer]. 08-27-2021 08:34-0400 Diastolic blood pressure 52 mm[Hg] Gibran Samuel MD Work Phone: [employer].; [employer]. 08-27-2021 08:34-0400 Heart rate 69 /min Gibran Samuel MD Work Phone: [employer].; [employer]. 08-27-2021 08:34-0400 Systolic blood pressure 145 mm[Hg] Gibran Samuel MD Work Phone: [facility], [facility].; [facility], [facility]. 07-16-2021 09:41-0400 Body height 165.1 cm Tala Lynne LPN [facility], [facility].; [facility], [facility] 07-16-2021 09:41-0400 Body mass index (BMI) [Ratio] 22.63 kg/m2 Tala Lynne ER MANAGER [facility], [facility].; [facility], [facility]. 07-16-2021 09:41-0400 Body surface area Derived from formula 1.68 m2 Tala Lynne ER MANAGER [facility], [facility].; [facility], [facility]. 07-16-2021 09:41-0400 Body temperature 97.3 [degF] Tala Lynne LPN [facility], [facility].; [facility], [facility]. 07-16-2021 09:41-0400 Body weight 61.69 kg Tala Lynne LPN [facility], [facility].; [facility], [facility]. 07-16-2021 09:41-0400 Diastolic blood pressure 84 mm[Hg] Tala Lynne ER MANAGER [facility], [facility].; [facility], [facility]. 07-16-2021 09:41-0400 Heart rate 81 /min Tala Lynne LPN [facility], [facility].; [facility], [facility]. 07-16-2021 09:41-0400 Systolic blood pressure 157 mm[Hg] Tala Lynne LPN [facility], [facility].; [facility], [facility]. 02-26-2021 09:13-0500 Body height 165.1 cm Gibran Samuel MD Work Phone: [facility], [facility].; [place] [employer] 02-26-2021 09:13-0500 Body mass index (BMI) [Ratio] 22.96 kg/m2 Gibran Samuel MD Work Phone: [facility], [facility].; [place] [employer] 02-26-2021 09:13-0500 Body surface area Derived from formula 1.69 m2 Gibran Samuel MD Work Phone: [employer]. 02-26-2021 09:13-0500 Body weight 62.6 kg Gibran Samuel MD Work Phone: [employer].; [employer] 02-26-2021 09:13-0500 Diastolic blood pressure 60 mm[Hg] Gibran Samuel MD Work Phone: [employer].; [employer] 02-26-2021 09:13-0500 Heart rate 77 /min Gibran Samuel MD Work Phone: [employer].; [employer], [employer]. 02-26-2021 09:13-0500 Systolic blood pressure 126 mm[Hg] Gibran Samuel MD Work Phone: [employer].; [employer], [employer]. 01-06-2021 10:31-0400 Body height 165.1 cm Michelel Barker [facility] [employer] [facility], [facility].; [employer], [employer]. 01-06-2021 10:31-0400 Body mass index (BMI) [Ratio] 22.96 kg/m2 [facility] [place], Inc.; [employer] 01-06-2021 10:31-0400 Body surface area Derived from formula 1.69 m2 [facility], Inc.; [employer]. 01-06-2021 10:31-0400 Body temperature 98.1 [degF] [facility], Inc.; [employer], [employer]. 01-06-2021 10:31-0400 Body weight 62.6 kg [facility] [facility], [facility].; [employer] 01-06-2021 10:31-0400 Diastolic blood pressure 78 mm[Hg] [facility], Inc.; [employer]. 01-06-2021 10:31-0400 Heart rate 99 /min Michelle Barker LPN [employer] [facility], Inc.; [employer] 01-06-2021 10:31-0400 Systolic blood pressure 131 mm[Hg] Michelle Barker ER MANAGER [employer] [facility], Inc.; [employer] 12-09-2020 11:52-0400 Body height 165.1 cm Michelle Barker [facility], Inc.; [employer] 12-09-2020 11:52-0400 Body mass index (BMI) [Ratio] 23.13 kg/m2 Michelle Barker [facility], Inc.; [email or web address] 12-09-2020 11:52-0400 Body surface area Derived from formula 1.69 m2 Michelle Barker ER MANAGER [place] [employer] [facility], Inc.; [employer] 12-09-2020 11:52-0400 Body weight 63.05 kg Michelle Barker [facility] [facility], Inc.; [employer] 12-09-2020 11:52-0400 Diastolic blood pressure 96 mm[Hg] Michelle Barker [facility], Inc.; [employer] 12-09-2020 11:52-0400 Heart rate 80 /min Michelle Barker [facility], Inc.; [employer] 12-09-2020 11:52-0400 Systolic blood pressure 173 mm[Hg] Michelle Barker [facility], Inc.; [employer] 11-14-2020 13:09-0400 Body height 165.1 cm Sheyla Thompson [facility], Inc.; [employer] 11-14-2020 13:09-0400 Body mass index (BMI) [Ratio] 23.13 kg/m2 Sheyla Thompson [facility], Inc.; [employer] 11-14-2020 13:09-0400 Body surface area Derived from formula 1.69 m2 [facility] [employer] [employer].; [employer] [facility]. 11-14-2020 13:09-0400 Body temperature 99.7 [degF] Sheyla Conde Donna [facility].; [employer] [facility]. 11-14-2020 13:09-0400 Body weight 63.05 kg Sheyla Conde Donna [facility] Inc.; [employer] [facility]. 11-14-2020 13:09-0400 Diastolic blood pressure 78 mm[Hg] Sheyla Conde Donna [facility].; [employer] [facility]. 11-14-2020 13:09-0400 Heart rate 73 /min Sheyla Conde Donna [facility] Inc.; [employer] [facility]. 11-14-2020 13:09-0400 Systolic blood pressure 186 mm[Hg] Sheyla Conde Donna [facility] Inc.; [employer] [facility]. 08-27-2020 09:01-0400 Body height 165.1 cm Gibran Samuel MD Work Phone: [employer]. 08-27-2020 09:01-0400 Body mass index (BMI) [Ratio] 22.8 kg/m2 Gibran Samuel MD Work Phone: [employer].; [employer] [facility]. 08-27-2020 09:01-0400 Body surface area Derived from formula 1.68 m2 Gibran Samuel MD Work Phone: [employer]. 08-27-2020 09:01-0400 Body weight 62.14 kg Gibran Samuel MD Work Phone: [employer].; [employer]. 08-27-2020 09:01-0400 Diastolic blood pressure 78 mm[Hg] Gibran Samuel MD Work Phone: [employer]. 08-27-2020 09:01-0400 Heart rate 73 /min Gibran Samuel MD Work Phone: [employer].; [employer]. 08-27-2020 09:01-0400 Systolic blood pressure 160 mm[Hg] Gibran Samuel MD Work Phone: [employer].; [employer]. 06-25-2020 09:17-0400 Body height 165.1 cm Gibran Samuel MD Work Phone: [employer].; [employer]. 06-25-2020 09:17-0400 Body mass index (BMI) [Ratio] 22.96 kg/m2 Gibran Samuel MD Work Phone: [employer].; [employer]. 06-25-2020 09:17-0400 Body surface area Derived from formula 1.69 m2 Gibran Samuel MD Work Phone: [employer].; [employer]. 06-25-2020 09:17-0400 Body temperature 98.1 [degF] Gibran Samuel MD Work Phone: [employer].; [employer]. 06-25-2020 09:17-0400 Body weight 62.6 kg Gibran Samuel MD Work Phone: [employer].; [employer]. 06-25-2020 09:17-0400 Diastolic blood pressure 78 mm[Hg] Gibran Samuel MD Work Phone: [employer].; [employer]. 06-25-2020 09:17-0400 Heart rate 82 /min Gibran Samuel MD Work Phone: [employer].; [employer]. 06-25-2020 09:17-0400 Systolic blood pressure 130 mm[Hg] Gibran Samuel MD Work Phone: [employer].; [employer]. 03-11-2020 10:48-0500 Body height 165.1 cm Gibran Samuel MD Work Phone: [employer].; [employer]. 03-11-2020 10:48-0500 Body mass index (BMI) [Ratio] 22.63 kg/m2 Gibran Samuel MD Work Phone: [employer].; [employer]. 03-11-2020 10:48-0500 Body surface area Derived from formula 1.68 m2 Gibran Samuel MD Work Phone: [employer].; [employer]. 03-11-2020 10:48-0500 Body weight 61.69 kg Gibran Samuel MD Work Phone: [employer].; [employer]. 03-11-2020 10:48-0500 Diastolic blood pressure 80 mm[Hg] Gibran Samuel MD Work Phone: [employer].; [employer]. 03-11-2020 10:48-0500 Heart rate 86 /min Gibran Samuel MD Work Phone: [employer].; [employer]. 03-11-2020 10:48-0500 Systolic blood pressure 136 mm[Hg] Gibran Samuel MD Work Phone: [employer].; [employer]. 02-01-2020 12:56-0500 Body height 165.1 cm Piedad Renee RN [employer]. 02-01-2020 12:56-0500 Body mass index (BMI) [Ratio] 22.8 kg/m2 Piedad Renee RN [employer].; [employer]. 02-01-2020 12:56-0500 Body surface area Derived from formula 1.68 m2 Piedad Renee RN [employer].; [employer]. 02-01-2020 12:56-0500 Body temperature 98.4 [degF] Piedad Renee RN [employer].; [employer]. 02-01-2020 12:56-0500 Body weight 62.14 kg Piedad Renee RN [employer].; [employer]. 02-01-2020 12:56-0500 Diastolic blood pressure 81 mm[Hg] Piedad Renee RN [employer].; [employer] 02-01-2020 12:56-0500 Heart rate 94 /min Piedad Renee RN [employer].; [employer] 02-01-2020 12:56-0500 Systolic blood pressure 157 mm[Hg] Piedad Renee RN [employer].; [employer] 08-13-2019 09:05-0400 Body height 165.1 cm Gibran Samuel MD Work Phone: [employer].; [employer] 08-13-2019 09:05-0400 Body mass index (BMI) [Ratio] 22.96 kg/m2 Gibran Samuel MD Work Phone: [employer].; [employer]. 08-13-2019 09:05-0400 Body surface area Derived from formula 1.69 m2 Gibran Samuel MD Work Phone: [employer].; [employer] 08-13-2019 09:05-0400 Body weight 62.6 kg Gibran Samuel MD Work Phone: [employer].; [employer] 08-13-2019 09:05-0400 Diastolic blood pressure 82 mm[Hg] Gibran Samuel MD Work Phone: [employer].; [employer]. 08-13-2019 09:05-0400 Heart rate 76 /min Gibran Samuel MD Work Phone: [employer].; [employer]. 08-13-2019 09:05-0400 Systolic blood pressure 130 mm[Hg] Gibran Samuel MD Work Phone: [employer].; [employer]. 11-27-2018 08:11-0400 Body height 165.1 cm Gibran Samuel MD Work Phone: [employer].; [employer] 11-27-2018 08:11-0400 Body mass index (BMI) [Ratio] 22.96 kg/m2 Gibran Samuel MD Work Phone: [employer].; [employer] 11-27-2018 08:11-0400 Body surface area Derived from formula 1.69 m2 Gibran Samuel MD Work Phone: [employer].; [employer] 11-27-2018 08:11-0400 Body weight 62.6 kg Gibran Samuel MD Work Phone: [employer].; [employer] 11-27-2018 08:11-0400 Diastolic blood pressure 77 mm[Hg] Gibran Samuel MD Work Phone: [employer].; [employer] 11-27-2018 08:11-0400 Heart rate 77 /min Gibran Samuel MD Work Phone: [employer].; [employer] 11-27-2018 08:11-0400 Systolic blood pressure 132 mm[Hg] Gibran Samuel MD Work Phone: [employer].; [employer] 05-30-2018 08:16-0400 Body height 165.1 cm Gibran Samuel MD Work Phone: [employer].; [employer] 05-30-2018 08:16-0400 Body mass index (BMI) [Ratio] 23.8 kg/m2 Gibran Samuel MD Work Phone: [employer].; [employer] 05-30-2018 08:16-0400 Body surface area Derived from formula 1.72 m2 Gibran Samuel MD Work Phone: [employer].; [employer]. 05-30-2018 08:16-0400 Body weight 64.86 kg Gibran Samuel MD Work Phone: [employer].; [employer] 05-30-2018 08:16-0400 Diastolic blood pressure 75 mm[Hg] Gibran Samuel MD Work Phone: [employer].; [employer] 05-30-2018 08:16-0400 Heart rate 77 /min Gibran Samuel MD Work Phone: [employer].; [employer] 05-30-2018 08:16-0400 Systolic blood pressure 116 mm[Hg] Gibran Samuel MD Work Phone: [employer].; [employer] 11-23-2017 08:22-0400 Body height 165.1 cm Gibran Samuel MD Work Phone: [employer].; [employer] 11-23-2017 08:22-0400 Body mass index (BMI) [Ratio] 24.13 kg/m2 Gibran Samuel MD Work Phone: [employer].; [employer] 11-23-2017 08:22-0400 Body surface area Derived from formula 1.73 m2 Gibran Samuel MD Work Phone: [employer].; [employer] 11-23-2017 08:22-0400 Body weight 65.77 kg Gibran Samuel MD Work Phone: [employer].; [employer] 11-23-2017 08:22-0400 Diastolic blood pressure 76 mm[Hg] Gibran Samuel MD Work Phone: [employer].; [employer] 11-23-2017 08:22-0400 Heart rate 76 /min Gibran Samuel MD Work Phone: [employer].; [employer] 11-23-2017 08:22-0400 Systolic blood pressure 146 mm[Hg] Gibran Samuel MD Work Phone: [employer].; [employer] 05-23-2017 09:01-0400 Body height 165.1 cm Gibran Samuel MD Work Phone: [employer].; [employer]. 05-23-2017 09:01-0400 Body mass index (BMI) [Ratio] 23.8 kg/m2 Gibran Samuel MD Work Phone: [employer].; [employer]. 05-23-2017 09:01-0400 Body surface area Derived from formula 1.72 m2 Gibran Samuel MD Work Phone: [employer].; [employer]. 05-23-2017 09:01-0400 Body weight 64.86 kg Gibran Samuel MD Work Phone: [employer].; [employer]. 05-23-2017 09:01-0400 Diastolic blood pressure 80 mm[Hg] Gibran Samuel MD Work Phone: [employer].; [employer]. 05-23-2017 09:01-0400 Heart rate 86 /min Gibran Samuel MD Work Phone: [employer].; [employer]. 05-23-2017 09:01-0400 Systolic blood pressure 132 mm[Hg] Gibran Samuel MD Work Phone: [employer].; [employer]. 03-31-2017 20:33-0500 Body temperature 99.9 [degF] Ten Ling MD Work Phone: [employer].; [employer]. 03-31-2017 20:33-0500 Body weight 65.77 kg Ten Ling MD Work Phone: [employer].; [employer]. 03-31-2017 20:33-0500 Diastolic blood pressure 85 mm[Hg] Ten Ling MD Work Phone: [place] [employer] [facility] [email or web address].; [employer]. 03-31-2017 20:33-0500 Heart rate 93 /min Ten Ling MD Work Phone: [place] [employer] [facility], [employer].; [employer]. 03-31-2017 20:33-0500 Systolic blood pressure 149 mm[Hg] Ten Ling MD Work Phone: [place] [employer].; [employer]. 03-22-2017 10:34-0500 Body height 165.1 cm Becky [place] [facility], [employer].; [employer], [employer]. 03-22-2017 10:34-0500 Body mass index (BMI) [Ratio] 24.13 kg/m2 [facility] [place] [facility] [facility], [employer].; [employer], [employer]. 03-22-2017 10:34-0500 Body surface area Derived from formula 1.73 m2 Becky Lucero [facility] [employer] [facility], [employer].; [employer]. 03-22-2017 10:34-0500 Body temperature 101.2 [degF] Becky [place] [facility] [employer] [facility], [employer].; [employer], [employer]. 03-22-2017 10:34-0500 Body weight 65.77 kg Becky Lucero [facility] [facility], [employer].; [employer]. 03-22-2017 10:34-0500 Diastolic blood pressure 70 mm[Hg] Beck[place] [facility] [facility], [employer].; [employer]. 03-22-2017 10:34-0500 Heart rate 80 /min [facility] [place] [facility] [facility], [employer].; [employer]. 03-22-2017 10:34-0500 Inhaled oxygen concentration 20 % [facility] [place] [facility], Inc.; [employer]. 03-22-2017 10:34-0500 SaO2% (BldA) [Mass fraction] 94 % Michelle Halluckey ER MANAGER [employer] [facility], Inc.; [employer], [employer] 03-22-2017 10:34-0500 Systolic blood pressure 127 mm[Hg] Michelle Barker ER MANAGER [email or web address].; [employer], [employer] 11-30-2016 09:12-0400 Body height 165.1 cm Piedad Renee RN [email or web address].; [employer] 11-30-2016 09:12-0400 Body mass index (BMI) [Ratio] 23.8 kg/m2 Piedad Renee RN [employer].; [employer], [employer] 11-30-2016 09:12-0400 Body surface area Derived from formula 1.72 m2 Piedad Renee RN [employer].; [employer], [employer] 11-30-2016 09:12-0400 Body weight 64.86 kg Piedad Renee RN [email or web address].; [employer], [employer] 11-30-2016 09:12-0400 Diastolic blood pressure 81 mm[Hg] Piedad Renee RN [employer].; [employer], [employer] 11-30-2016 09:12-0400 Heart rate 66 /min Piedad Renee RN [email or web address].; [employer], [employer] 11-30-2016 09:12-0400 Systolic blood pressure 137 mm[Hg] Piedad Renee RN [employer].; [employer] 09-01-2016 14:49-0400 Body temperature 98.9 [degF] Alondra Starkey RN [employer].; [employer], [employer] 09-01-2016 14:49-0400 Body weight 65.32 kg Alondra Starkey RN [employer].; [employer], [employer] 09-01-2016 14:49-0400 Diastolic blood pressure 85 mm[Hg] Alondra Starkey RN [employer].; [employer] 09-01-2016 14:49-0400 Heart rate 80 /min Alondra Starkey RN [employer]. 09-01-2016 14:49-0400 Systolic blood pressure 184 mm[Hg] Alondra Starkey RN [employer].; [employer]. 05-25-2016 10:17-0400 Body height 165.1 cm Gibran Samuel MD Work Phone: [employer].; [employer]. 05-25-2016 10:17-0400 Body mass index (BMI) [Ratio] 23.8 kg/m2 Gibran Samuel MD Work Phone: [employer].; [employer]. 05-25-2016 10:17-0400 Body surface area Derived from formula 1.72 m2 Gibran Samuel MD Work Phone: [employer].; [employer]. 05-25-2016 10:17-0400 Body weight 64.86 kg Gibran Samuel MD Work Phone: [employer].; [employer]. 05-25-2016 10:17-0400 Diastolic blood pressure 86 mm[Hg] Gibran Samuel MD Work Phone: [employer].; [employer]. 05-25-2016 10:17-0400 Heart rate 76 /min Gibran Samuel MD Work Phone: [employer].; [employer]. 05-25-2016 10:17-0400 Systolic blood pressure 136 mm[Hg] Gibran Samuel MD Work Phone: [employer].; [employer]. 12-09-2015 08:27-0400 Body height 166.37 cm Gibran Samuel MD Work Phone: [employer].; [employer]. 12-09-2015 08:27-0400 Body mass index (BMI) [Ratio] 22.78 kg/m2 Gibran Samuel MD Work Phone: [employer].; [employer]. 12-09-2015 08:27-0400 Body surface area Derived from formula 1.7 m2 Gibran Samuel MD Work Phone: [employer].; [employer] 12-09-2015 08:27-0400 Body weight 63.05 kg Gibran Samuel MD Work Phone: [employer].; [employer] 12-09-2015 08:27-0400 Diastolic blood pressure 86 mm[Hg] Gibran Samuel MD Work Phone: [employer].; [employer] 12-09-2015 08:27-0400 Heart rate 74 /min Gibran Samuel MD Work Phone: [employer].; [employer] 12-09-2015 08:27-0400 Systolic blood pressure 132 mm[Hg] Gibran Samuel MD Work Phone: [employer].; [employer] 12-03-2015 09:49-0400 Body height 166.37 cm Michelle Barker [facility] [address] [address] [employer] 12-03-2015 09:49-0400 Body mass index (BMI) [Ratio] 22.78 kg/m2 [place] [facility] [address] [employer] 12-03-2015 09:49-0400 Body surface area Derived from formula 1.7 m2 [place] [facility], [employer].; [employer] 12-03-2015 09:49-0400 Body temperature 98.7 [degF] Becky [place] [facility] [address] [employer] 12-03-2015 09:49-0400 Body weight 63.05 kg Becky Luc[place] [facility] [address] [address] [employer].; [employer] 12-03-2015 09:49-0400 Diastolic blood pressure 82 mm[Hg] BeckyDelfina Barker [facility] [address] [employer] 12-03-2015 09:49-0400 Heart rate 82 /min Michelle Barker ER MANAGER [employer] [facility], Inc.; [employer] 12-03-2015 09:49-0400 Systolic blood pressure 172 mm[Hg] Michelle Barker LPN [employer] [facility], Inc.; [employer] 06-04-2015 09:21-0400 Body height 166.12 cm Michelle Barker [facility], [employer].; [employer] 06-04-2015 09:21-0400 Body mass index (BMI) [Ratio] 22.85 kg/m2 Becky [facility], [employer].; [employer] 06-04-2015 09:21-0400 Body surface area Derived from formula 1.7 m2 Michelle Barker ER MANAGER [email or web address].; [employer] 06-04-2015 09:21-0400 Body weight 63.05 kg Michelle Barker ER MANAGER [email or web address].; [employer] 06-04-2015 09:21-0400 Diastolic blood pressure 81 mm[Hg] Michelle Barker ER MANAGER [email or web address] 06-04-2015 09:21-0400 Heart rate 73 /min Michelle Barker ER MANAGER [email or web address].; [employer] 06-04-2015 09:21-0400 Systolic blood pressure 147 mm[Hg] Michelle Barker ER MANAGER [email or web address].; [employer] 11-27-2014 09:17-0400 Body height 166.12 cm Gibran Samuel MD Work Phone: [employer], [employer] 11-27-2014 09:17-0400 Body mass index (BMI) [Ratio] 23.18 kg/m2 Gibran Samuel MD Work Phone: [employer], [employer].; [employer] 11-27-2014 09:17-0400 Body surface area Derived from formula 1.71 m2 Gibran Samuel MD Work Phone: [employer].; [employer] 11-27-2014 09:17-0400 Body weight 63.96 kg Gibran Samuel MD Work Phone: [employer].; [employer] 11-27-2014 09:17-0400 Diastolic blood pressure 78 mm[Hg] Gibran Samuel MD Work Phone: [employer].; [employer] 11-27-2014 09:17-0400 Heart rate 76 /min Gibran Samuel MD Work Phone: [employer].; [employer] 11-27-2014 09:17-0400 Systolic blood pressure 138 mm[Hg] Gibran Samuel MD Work Phone: [employer].; [employer] 08-13-2014 11:00-0400 Body temperature 98.3 [degF] Anahi Cr LPN [employer].; [employer] 08-13-2014 11:00-0400 Body weight 64.41 kg Anahi Cr LPN [employer].; [employer] 08-13-2014 11:00-0400 Diastolic blood pressure 79 mm[Hg] Anahi Cr LPN [employer] 08-13-2014 11:00-0400 Heart rate 70 /min Anahi Cr LPN [employer].; [employer] 08-13-2014 11:00-0400 Systolic blood pressure 175 mm[Hg] Anahi Cr LPN [employer] 05-27-2014 09:21-0400 Body height 166.37 cm Gibran Samuel MD Work Phone: [employer].; [employer] 05-27-2014 09:21-0400 Body mass index (BMI) [Ratio] 23.11 kg/m2 Gibran Samuel MD Work Phone: [employer].; [employer]. 05-27-2014 09:21-0400 Body surface area Derived from formula 1.71 m2 Gibran Samuel MD Work Phone: [employer].; [employer] 05-27-2014 09:21-0400 Body weight 63.96 kg Gibran Samuel MD Work Phone: [employer].; [employer] 05-27-2014 09:21-0400 Diastolic blood pressure 76 mm[Hg] Gibran Samuel MD Work Phone: [employer].; [employer], [employer]. 05-27-2014 09:21-0400 Heart rate 66 /min Gibran Samuel MD Work Phone: [employer].; [employer]. 05-27-2014 09:21-0400 Systolic blood pressure 122 mm[Hg] Gibran Samuel MD Work Phone: [employer].; [employer] 02-01-2014 10:55-0500 Body height 166.37 cm Michelle Mathis [place] ER MANAGER [email or web address], [employer].; [employer] 02-01-2014 10:55-0500 Body mass index (BMI) [Ratio] 22.61 kg/m2 Becky Lucero ER MANAGER [employer], [employer].; [employer] 02-01-2014 10:55-0500 Body surface area Derived from formula 1.7 m2 BeckyDelfina Barker ER MANAGER [employer], [employer]. 02-01-2014 10:55-0500 Body temperature 97.9 [degF] BeckyDelfina Barker ER MANAGER [email or web address] 02-01-2014 10:55-0500 Body weight 62.6 kg BeckyDelfina Barker ER MANAGER [email or web address], [employer]. 02-01-2014 10:55-0500 Diastolic blood pressure 87 mm[Hg] Michelle Barker ER MANAGER [facility], [facility].; [facility], [facility]. 02-01-2014 10:55-0500 Heart rate 75 /min Michelle Barker [facility], [facility].; [facility], Inc[employer] 02-01-2014 10:55-0500 Inhaled oxygen concentration 20 % [facility] Lucero [facility], [facility].; [place] [employer] [facility], [employer]. 02-01-2014 10:55-0500 SaO2% (BldA) [Mass fraction] 98 % Michelle Barker [facility], [facility].; [employer] [facility], [employer]. 02-01-2014 10:55-0500 Systolic blood pressure 158 mm[Hg] Michelle Barker [facility], Inc.; [employer] [facility], Inc. 12-19-2013 10:14-0400 Body height 166.37 cm Becky Lucero [facility], Inc.; [employer] [facility], [employer]. 12-19-2013 10:14-0400 Body mass index (BMI) [Ratio] 22.61 kg/m2 [facility] Lucero [facility], [facility].; [employer] [facility], [employer]. 12-19-2013 10:14-0400 Body surface area Derived from formula 1.7 m2 [facility] Lucero [facility], [facility].; [employer] [facility], Inc. 12-19-2013 10:14-0400 Body weight 62.6 kg Michelle Barker [facility], [facility].; [employer] [facility], [employer]. 12-19-2013 10:14-0400 Diastolic blood pressure 79 mm[Hg] Michelle Barker [facility], [facility].; [employer], [employer]. 12-19-2013 10:14-0400 Heart rate 71 /min Becky Stuckey [facility], [facility].; [employer] [facility], [employer]. 12-19-2013 10:14-0400 Systolic blood pressure 143 mm[Hg] BeckyDelfina Barker [facility], Inc.; [employer], [employer]. 12-13-2013 11:18-0400 Body height 166.37 cm Lisbet [facility], Inc.; [employer] 12-13-2013 11:18-0400 Body mass index (BMI) [Ratio] 22.68 kg/m2 [facility] [employer] [facility], Inc.; [employer] 12-13-2013 11:18-0400 Body surface area Derived from formula 1.7 m2 Lisbet Ybarrabethanie MIRZA [place] [employer] [facility], Inc.; [employer] 12-13-2013 11:18-0400 Body temperature 98.3 [degF] Lisbet Hair [facility] huy [facility], Inc.; [employer] 12-13-2013 11:18-0400 Body weight 62.77 kg Lisbet Hair YUKI [facility], Inc.; [email or web address] 12-13-2013 11:18-0400 Diastolic blood pressure 82 mm[Hg] Lisbet Guajardodarian [facility] [employer] [facility], Inc.; [employer] 12-13-2013 11:18-0400 Heart rate 68 /min Lisbet Hair [facility] [employer] [facility], Inc.; [email or web address] 12-13-2013 11:18-0400 Systolic blood pressure 170 mm[Hg] Lisbet Hair ER MANAGER [employer] [facility], Inc.; [email or web address] 11-28-2013 09:25-0400 Body height 166.37 cm Gibran Samuel MD Work Phone: [employer], [facility].; [employer] 11-28-2013 09:25-0400 Body mass index (BMI) [Ratio] 22.94 kg/m2 Gibran Samuel MD Work Phone: [place] [employer], [email or web address] 11-28-2013 09:25-0400 Body surface area Derived from formula 1.71 m2 Gibran Samuel MD Work Phone: [place] [employer] 11-28-2013 09:25-0400 Body weight 63.5 kg Gibran Samuel MD Work Phone: [employer] 11-28-2013 09:25-0400 Diastolic blood pressure 72 mm[Hg] Gibran Samuel MD Work Phone: [employer] 11-28-2013 09:25-0400 Heart rate 86 /min Gibran Samuel MD Work Phone: [employer] 11-28-2013 09:25-0400 Systolic blood pressure 138 mm[Hg] Gibran Samuel MD Work Phone: [employer] 06-25-2013 14:20-0400 Body temperature 98.9 [degF] Anahi Cr [facility] 06-25-2013 14:20-0400 Body weight 65.32 kg Anahi Cr [facility] [employer] 06-25-2013 14:20-0400 Diastolic blood pressure 80 mm[Hg] Anahi Cr [facility] [employer] 06-25-2013 14:20-0400 Heart rate 86 /min Anahi Cr [facility] [employer] 06-25-2013 14:20-0400 Systolic blood pressure 183 mm[Hg] Anahi Cr [facility] [employer] 05-23-2013 09:15-0400 Body height 166.37 cm [facility] [employer] 05-23-2013 09:15-0400 Body mass index (BMI) [Ratio] 23.76 kg/m2 [facility] [employer] 05-23-2013 09:15-0400 Body surface area Derived from formula 1.74 m2 [facility] 05-23-2013 09:15-0400 Body weight 65.77 kg Michelle Barker [facility] 05-23-2013 09:15-0400 Diastolic blood pressure 85 mm[Hg] Michelle Barker [facility] 05-23-2013 09:15-0400 Heart rate 68 /min Becky Stuckey [facility] 05-23-2013 09:15-0400 Systolic blood pressure 137 mm[Hg] Michelle Barker [facility] 11-22-2012 08:50-0400 Body weight 63.5 kg Gibran Samuel MD Work Phone: [email or web address] 11-22-2012 08:50-0400 Diastolic blood pressure 76 mm[Hg] Gibran Samuel MD Work Phone: [email or web address] 11-22-2012 08:50-0400 Heart rate 76 /min Gibran Samuel MD Work Phone: [email or web address] 11-22-2012 08:50-0400 Systolic blood pressure 124 mm[Hg] Gibran Samule MD Work Phone: [email or web address] 05-24-2012 08:37-0400 Body height 166.37 cm Becky Lucero [facility] 05-24-2012 08:37-0400 Body mass index (BMI) [Ratio] 24.09 kg/m2 [facility] [place] [facility] 05-24-2012 08:37-0400 Body surface area Derived from formula 1.75 m2 [facility] 05-24-2012 08:37-0400 Body weight 66.68 kg Michelle Barker ER MANAGER [facility], Inc.; [employer] 05-24-2012 08:37-0400 Diastolic blood pressure 83 mm[Hg] Michelle Barker LPN [facility], Inc.; [employer] 05-24-2012 08:37-0400 Heart rate 61 /min Michelle Barker ER MANAGER [facility], Inc.; [employer] 05-24-2012 08:37-0400 Systolic blood pressure 129 mm[Hg] Michelle Barker [facility], Inc.; [employer] 03-15-2012 10:54-0500 Body height 166.37 cm Michelle Barker ER MANAGER [employer] [facility], Inc.; [employer] 03-15-2012 10:54-0500 Body mass index (BMI) [Ratio] 24.58 kg/m2 Becky Stuckey [facility] [employer] [facility], Inc.; [employer] 03-15-2012 10:54-0500 Body surface area Derived from formula 1.76 m2 [facility], Inc.; [employer] 03-15-2012 10:54-0500 Body weight 68.04 kg Michelle Barker LPN [employer] [facility], Inc.; [employer] 03-15-2012 10:54-0500 Diastolic blood pressure 79 mm[Hg] Michelle Barker ER MANAGER [employer] [facility], Inc.; [employer] 03-15-2012 10:54-0500 Heart rate 73 /min BeckyDelfina Barker [facility], Inc.; [employer] 03-15-2012 10:54-0500 Systolic blood pressure 166 mm[Hg] Michelle Barker [facility], Inc.; [employer] 11-30-2011 08:21-0400 Body height 166.37 cm Gibran Samuel MD Work Phone: [employer] 11-30-2011 08:21-0400 Body mass index (BMI) [Ratio] 23.11 kg/m2 Gibran Samuel MD Work Phone: [employer] 11-30-2011 08:21-0400 Body surface area Derived from formula 1.71 m2 Gibran aSmuel MD Work Phone: [employer] 11-30-2011 08:21-0400 Body weight 63.96 kg Gibran Samuel MD Work Phone: [employer].; [employer] 11-30-2011 08:21-0400 Diastolic blood pressure 70 mm[Hg] Gibran Samuel MD Work Phone: [employer].; [employer] 11-30-2011 08:21-0400 Heart rate 69 /min Gibran Samuel MD Work Phone: [employer] 11-30-2011 08:21-0400 Systolic blood pressure 116 mm[Hg] Gibran Samuel MD Work Phone: [employer] 05-28-2011 08:08-0400 Body height 166.37 cm Becky Lucero [facility] [address] [employer] 05-28-2011 08:08-0400 Body mass index (BMI) [Ratio] 23.27 kg/m2 BeckyDelfina Barker [facility] [address] [employer] 05-28-2011 08:08-0400 Body surface area Derived from formula 1.72 m2 Michelle Barker ER MANAGER [employer] 05-28-2011 08:08-0400 Body weight 64.41 kg BeckyDelfina Barker ER MANAGER [employer] 05-28-2011 08:08-0400 Diastolic blood pressure 87 mm[Hg] Michelle Barker [facility], Inc.; [employer] [facility], Inc. 05-28-2011 08:08-0400 Heart rate 71 /min Michelle Barker [facility], Inc.; [employer] [facility], Inc. 05-28-2011 08:08-0400 Systolic blood pressure 134 mm[Hg] Michelle Barker [facility], Inc.; [employer] 01-12-2011 09:16-0400 Body height 166.37 cm Michelle Barker [facility], Inc.; [employer] 01-12-2011 09:16-0400 Body mass index (BMI) [Ratio] 23.93 kg/m2 Becky Lucero [facility], Inc.; [employer] 01-12-2011 09:16-0400 Body surface area Derived from formula 1.74 m2 [facility] Lucero [facility], Inc.; [employer] 01-12-2011 09:16-0400 Body weight 66.23 kg Michelle Barker [facility], Inc.; [employer] 01-12-2011 09:16-0400 Diastolic blood pressure 83 mm[Hg] Michelle Barker [facility], Inc.; [employer] 01-12-2011 09:16-0400 Heart rate 77 /min Michelle Barker [facility], Inc.; [employer] 01-12-2011 09:16-0400 Systolic blood pressure 161 mm[Hg] Michelle Barker [facility], Inc.; [employer] 12-04-2010 08:50-0400 Body weight 66.23 kg Anahi Cr [facility] [employer] [facility], Inc.; [employer] 12-04-2010 08:50-0400 Diastolic blood pressure 77 mm[Hg] Anahi Cr [facility] [employer] [facility], Inc.; [employer] 12-04-2010 08:50-0400 Heart rate 68 /min Anahi Cr ER MANAGER [facility], Inc.; [employer] 12-04-2010 08:50-0400 Systolic blood pressure 138 mm[Hg] Anahi Sp Tayo YUKI [facility], Inc.; [employer] 05-29-2010 08:44-0400 Body temperature 96.6 [degF] Anahi Cr ER MANAGER [employer] [facility], Inc.; [employer] 05-29-2010 08:44-0400 Body weight 66.23 kg Anahi Cr ER MANAGER [employer] [facility], Inc.; [employer] 05-29-2010 08:44-0400 Diastolic blood pressure 68 mm[Hg] Anahi Sp Cr ER MANAGER [employer] [facility], Inc.; [employer] 05-29-2010 08:44-0400 Heart rate 69 /min Anahi Cr LPN [place] [employer] [facility], Inc.; [employer] 05-29-2010 08:44-0400 Systolic blood pressure 128 mm[Hg] Anahi Sp Cr LPN [place] [employer] [facility], Inc.; [employer] 2010 10:02-0500 Body weight 67.13 kg Anahi Cr ER MANAGER [employer] [facility], Inc.; [employer] 2010 10:02-0500 Diastolic blood pressure 71 mm[Hg] Anahi Sp Cr ER MANAGER [employer] [facility], Inc.; [employer] 2010 10:02-0500 Heart rate 70 /min Anahi Sp Cr LPN [employer] [facility], Inc.; [employer] 2010 10:02-0500 Systolic blood pressure 138 mm[Hg] Anahi Sp Cr ER MANAGER [employer] [facility], Inc.; [employer] 12-17-2009 13:10-0400 Body height 166.37 cm [facility] [employer] [facility], Inc.; [employer] 12-17-2009 13:10-0400 Body mass index (BMI) [Ratio] 24.42 kg/m2 [facility] [employer] [facility], Inc.; [employer] 12-17-2009 13:10-0400 Body surface area Derived from formula 1.76 m2 Michelle Barker [facility] [employer] [facility], Inc.; [employer] 12-17-2009 13:10-0400 Body weight 67.59 kg Michelle Barker [facility], Inc.; [employer] 12-17-2009 13:10-0400 Diastolic blood pressure 83 mm[Hg] Michelle Barker [facility] 12-17-2009 13:10-0400 Heart rate 69 /min Michelle Barker [facility] 12-17-2009 13:10-0400 Systolic blood pressure 155 mm[Hg] Michelle Barker [facility] 11-28-2009 08:27-0400 Body weight 65.77 kg Anahi Cr [facility] 11-28-2009 08:27-0400 Diastolic blood pressure 71 mm[Hg] Anahi Cr [facility] 11-28-2009 08:27-0400 Heart rate 67 /min Anahi Cr [facility] 11-28-2009 08:27-0400 Systolic blood pressure 118 mm[Hg] Anahi Cr [facility] [address] [employer] Encounters Encounter Date Encounter Type Care Provider Facility Start: 03-21-2023 End: 03-21-2023 Office outpatient visit 15 minutes Gibran Samuel MD Work Phone: [employer] Start: 02-17-2023 End: 02-17-2023 Office outpatient visit 15 minutes Gibran Samuel MD Work Phone: [employer] Start: 02-10-2023 End: 02-10-2023 Office outpatient visit 15 minutes Gibran Samuel MD Work Phone: [employer]. Start: 01-24-2023 End: 01-24-2023 Office outpatient visit 15 minutes Gibran Samuel MD Work Phone: [employer]. Start: 01-19-2023 End: 01-19-2023 Gibran Samuel MD Work Phone: [employer]. Start: 09-16-2022 End: 09-16-2022 Patient encounter status Gibran Samuel MD Work Phone: [employer] Start: 09-16-2022 End: 09-16-2022 Periodic preventive med est patient 65yrs& older Gibran Samuel MD Work Phone: [employer]. Start: 09-06-2022 End: 09-12-2022 Gibran Samuel MD Work Phone: [employer]. Start: 09-01-2022 End: 09-12-2022 Gibran Samuel MD Work Phone: [employer]. Start: 08-23-2022 End: 08-23-2022 Gibran Samuel MD Work Phone: [employer]. Start: 08-12-2022 End: 08-12-2022 Office outpatient visit 15 minutes Gibran Samuel MD Work Phone: [employer] Start: 08-10-2022 End: 08-10-2022 Emergency department patient visit GIBRAN SAMUEL [facility] Start: 05-18-2022 End: 05-18-2022 Office outpatient visit 15 minutes Gibran Samuel MD Work Phone: [employer]. Start: 03-30-2022 End: 03-30-2022 Office outpatient visit 15 minutes Gibran Samuel MD Work Phone: [employer]. Start: 02-25-2022 End: 02-25-2022 Office outpatient visit 15 minutes Gibran Samuel MD Work Phone: [employer]. Start: 02-09-2022 End: 02-09-2022 Office outpatient visit 15 minutes Gibran Samuel MD Work Phone: [employer] Start: 01-27-2022 End: 01-27-2022 Gibran Samuel MD Work Phone: [employer] Start: 12-21-2021 End: 12-21-2021 Office outpatient visit 15 minutes Gibran Samuel MD Work Phone: [employer]. Start: 09-16-2021 End: 09-16-2021 ambulatory GIBRAN SAMUEL [facility] Start: 08-28-2021 End: 08-28-2021 Office outpatient visit 15 minutes Gibran Samuel MD Work Phone: [employer] Start: 08-27-2021 End: 08-27-2021 Patient encounter status Gibran Samuel MD Work Phone: [employer]; [employer]. Start: 08-27-2021 End: 08-27-2021 Periodic preventive med est patient 65yrs& older Gibran Samuel MD Work Phone: [employer]. Start: 08-18-2021 End: 08-18-2021 Gibran Samuel MD Work Phone: [employer]. Start: 07-16-2021 End: 07-16-2021 Office outpatient visit 15 minutes iGbran Samuel MD Work Phone: [employer] Start: 02-26-2021 End: 02-26-2021 Office outpatient visit 15 minutes Gibran Samuel MD Work Phone: [employer] Start: 01-06-2021 End: 01-06-2021 Office outpatient visit 15 minutes Gibran Samuel MD Work Phone: [employer]. Start: 12-09-2020 End: 12-09-2020 Office outpatient visit 15 minutes Gibran Samuel MD Work Phone: [employer] Start: 11-14-2020 End: 11-14-2020 Office outpatient visit 15 minutes Gibran Samuel MD Work Phone: [employer] Start: 08-27-2020 End: 08-27-2020 Patient encounter status Gibran Samuel MD Work Phone: [employer] Start: 08-27-2020 End: 08-27-2020 Periodic preventive med est patient 65yrs& older Gibran Samuel MD Work Phone: [employer]. Start: 08-20-2020 End: 08-20-2020 Gibran Samuel MD Work Phone: [employer]. Start: 07-14-2020 End: 07-14-2020 Gibran Samuel MD Work Phone: [employer]. Start: 06-30-2020 End: 06-30-2020 Gibran Samuel MD Work Phone: [employer]. Start: 06-25-2020 End: 06-25-2020 Office outpatient visit 15 minutes Gibran Samuel MD Work Phone: [employer]. Start: 03-11-2020 End: 03-11-2020 Office outpatient visit 15 minutes Gibran Samuel MD Work Phone: [employer]. Start: 02-01-2020 End: 02-01-2020 Office outpatient visit 15 minutes Gibran Samuel MD Work Phone: [employer]. Start: 01-01-2020 End: 01-01-2020 Gibran Samuel MD Work Phone: [employer]. Start: 12-17-2019 End: 12-17-2019 Gibran Samuel MD Work Phone: [employer]. Start: 08-21-2019 End: 08-21-2019 Gibran Samuel MD Work Phone: [employer]. Start: 08-13-2019 End: 08-13-2019 Patient encounter status Gibran Samuel MD Work Phone: [employer] Start: 08-13-2019 End: 08-13-2019 Periodic preventive med est patient 65yrs& older Gibran Samuel MD Work Phone: [employer]. Start: 08-13-2019 End: 08-13-2019 Gibran Samuel MD Work Phone: [employer]. Start: 05-29-2019 End: 05-29-2019 Gibran Samuel MD Work Phone: [employer]. Start: 05-04-2019 End: 05-04-2019 Gibran Samuel MD Work Phone: [employer]. Start: 01-10-2019 End: 01-10-2019 Gibran Samuel MD Work Phone: [employer]. Start: 11-27-2018 End: 11-27-2018 Office outpatient visit 15 minutes Gibran Samuel MD Work Phone: [employer]. Start: 11-27-2018 End: 11-27-2018 Gibran Samuel MD Work Phone: [employer]. Start: 06-30-2018 End: 06-30-2018 Gibran Samuel MD Work Phone: [employer]. Start: 05-30-2018 End: 05-30-2018 Patient encounter status Gibran Samuel MD Work Phone: [employer] Start: 05-30-2018 End: 05-30-2018 Periodic preventive med est patient 65yrs& older Gibran Samuel MD Work Phone: [employer]. Start: 05-23-2018 End: 05-23-2018 Gibran Samuel MD Work Phone: [employer]. Start: 03-15-2018 End: 03-15-2018 Gibran Samuel MD Work Phone: [employer]. Start: 01-18-2018 End: 01-18-2018 Gibran Samuel MD Work Phone: [employer]. Start: 12-22-2017 End: 12-22-2017 Patient encounter [facility] Start: 11-23-2017 End: 11-23-2017 Office outpatient visit 15 minutes Gibran Samuel MD Work Phone: [employer] Start: 05-23-2017 End: 05-23-2017 Office outpatient visit 15 minutes Gibran Samuel MD Work Phone: [employer] Start: 05-20-2017 End: 05-20-2017 Gibran Samuel MD Work Phone: [employer] Start: 05-17-2017 End: 05-17-2017 Gibran Samuel MD Work Phone: [employer] Start: 05-16-2017 End: 05-17-2017 Gibran Samuel MD Work Phone: [employer] Start: 04-26-2017 [facility] Start: 04-19-2017 [facility] Start: 03-31-2017 End: 04-10-2017 Gibran Samuel MD Work Phone: [employer] Start: 03-22-2017 End: 03-22-2017 Office outpatient visit 15 minutes Gibran Samuel MD Work Phone: [employer] Start: 01-28-2017 End: 01-28-2017 Gibran Samuel MD Work Phone: [employer] Start: 01-18-2017 End: 01-18-2017 Gibran Samuel MD Work Phone: [employer] Start: 11-30-2016 End: 11-30-2016 Office outpatient visit 15 minutes Gibran Samuel MD Work Phone: [employer] Start: 11-08-2016 End: 11-08-2016 Gibran Samuel MD Work Phone: [employer] Start: 09-01-2016 End: 09-01-2016 Office outpatient visit 15 minutes Gibran Samuel MD Work Phone: [employer] Start: 05-25-2016 End: 05-25-2016 Patient encounter status Gibran Samuel MD Work Phone: [employer] Start: 05-25-2016 End: 05-25-2016 Periodic preventive med est patient 65yrs& older Gibran Samuel MD Work Phone: [employer] Start: 05-17-2016 End: 05-17-2016 Gibran Samuel MD Work Phone: [employer] Start: 05-07-2016 End: 05-07-2016 Gibran Samuel MD Work Phone: [employer] Start: 04-06-2016 End: 04-07-2016 Gibran Samuel MD Work Phone: [employer] Start: 01-15-2016 End: 01-15-2016 Gibran Samuel MD Work Phone: [employer] Start: 12-09-2015 End: 12-09-2015 Office outpatient visit 15 minutes Gibran Samuel MD Work Phone: [employer] Start: 12-03-2015 End: 12-03-2015 Office outpatient visit 15 minutes Gibran Samuel MD Work Phone: [employer]. Start: 12-02-2015 End: 12-02-2015 Gibran Samuel MD Work Phone: [employer]. Start: 06-04-2015 End: 06-04-2015 Office outpatient visit 15 minutes Gibran Samuel MD Work Phone: [employer] Start: 05-28-2015 End: 05-28-2015 Gibran aSmuel MD Work Phone: [employer]. Start: 12-25-2014 End: 12-25-2014 Gibran Samuel MD Work Phone: [employer]. Start: 11-27-2014 End: 11-27-2014 Office outpatient visit 15 minutes Gibran Samuel MD Work Phone: [employer]. Start: 11-20-2014 End: 11-20-2014 Gibran Samuel MD Work Phone: [employer]. Start: 08-13-2014 End: 08-13-2014 Office outpatient visit 15 minutes Gibran Samuel MD Work Phone: [employer] Start: 05-27-2014 End: 05-27-2014 Office outpatient visit 15 minutes Gibran Samuel MD Work Phone: [employer] Start: 05-21-2014 End: 05-21-2014 Gibran Samuel MD Work Phone: [employer] Start: 03-18-2014 End: 03-18-2014 Gibran Samuel MD Work Phone: [employer] Start: 02-01-2014 End: 02-01-2014 Office outpatient visit 10 minutes Gibran Samuel MD Work Phone: [employer] Start: 01-01-2014 End: 01-01-2014 Gibran Samuel MD Work Phone: [employer] Start: 12-19-2013 End: 12-19-2013 Office outpatient visit 15 minutes Gibran Samuel MD Work Phone: [employer] Start: 12-13-2013 End: 12-13-2013 Gibran Samuel MD Work Phone: [employer] Start: 11-28-2013 End: 11-28-2013 Office outpatient visit 15 minutes Gibran Samuel MD Work Phone: [employer] Start: 11-21-2013 End: 11-21-2013 Gibran Samuel MD Work Phone: [employer]. Start: 06-25-2013 End: 06-25-2013 Gibran Samuel MD Work Phone: [employer]. Start: 05-23-2013 End: 05-23-2013 Gibran Samuel MD Work Phone: [employer]. Start: 05-16-2013 End: 05-16-2013 Gibran Samuel MD Work Phone: [employer]. Start: 04-09-2013 End: 04-09-2013 Gibran Samuel MD Work Phone: [employer]. Start: 01-03-2013 End: 01-03-2013 Gibran Samuel MD Work Phone: [employer]. Start: 11-22-2012 End: 11-22-2012 Gibran Samuel MD Work Phone: [employer]. Start: 11-20-2012 End: 11-20-2012 Gibran Samuel MD Work Phone: [employer]. Start: 05-24-2012 End: 05-24-2012 Gibran Samuel MD Work Phone: [employer]. Start: 03-15-2012 End: 03-15-2012 Gibran Samuel MD Work Phone: [employer]. Start: 02-25-2012 End: 02-25-2012 Gibran Samuel MD Work Phone: [employer]. Start: 11-30-2011 End: 11-30-2011 Gibran Samuel MD Work Phone: [employer]. Start: 05-28-2011 End: 05-28-2011 Gibran Samuel MD Work Phone: [employer]. Start: 01-12-2011 End: 01-12-2011 Gibran Samuel MD Work Phone: [employer]. Start: 12-08-2010 End: 12-08-2010 Gibran Samuel MD Work Phone: [employer]. Start: 12-04-2010 End: 12-04-2010 Gibran Samuel MD Work Phone: [employer]. Start: 05-29-2010 End: 05-29-2010 Gibran Samuel MD Work Phone: [employer]. Start: 2010 End: 2010 Routine general medical examination at a health care facility Gibran Samuel MD Work Phone: [employer].; [employer]. Start: 2010 End: 2010 [facility]ibr[email or web address] Start: 01-13-2010 End: 01-13-2010 [facility]ibr[facility] Samuel MD [email or web address] Start: 12-17-2009 End: 12-17-2009 Gibran Samuel MD [email or web address] Start: 11-28-2009 End: 11-28-2009 Gibran Samuel MD Work Phone: [facility] Start: 11-25-2009 End: 11-25-2009 Gibran Samuel MD Work Phone: [email or web address] Patient encounter status Michelle Medina y ER MANAGER [facility]; [facility] Patient encounter status Gibran Samuel MD Work Phone: [employer]; [facility] Procedures Date Procedure Procedure Detail Performing Clinician Start: 01-19-2023 End: 01-19-2023 Flu immunize order/admin Gibran Hobbs Work Phone: Start: 09-16-2022 End: 09-16-2022 Adv care pln/ no alt dcsn mkr docd or refusal Gibran Samuel MD Work Phone: Start: 09-16-2022 End: 09-16-2022 Depression screening Gibran Samuel MD Work Phone: Start: 09-16-2022 End: 09-16-2022 Falls risk assessment documented Gibran Samuel MD Work Phone: Start: 09-16-2022 End: 09-16-2022 PPPS, subseq visit Gibran Samuel MD Work Phone: Start: 09-16-2022 End: 09-16-2022 Pt falls assess docd w/o fall/injury past year Gibran Samuel MD Work Phone: Start: 09-16-2022 End: 09-16-2022 Scr dep neg, no plan reqd Gibran Samuel MD Work Phone: Start: 09-06-2022 End: 09-06-2022 Lab findings surveillance Michelle elmore ER MANAGER Start: 09-06-2022 End: 09-06-2022 Lipid panel results documented & reviewed Michelle Barker ER MANAGER Start: 09-06-2022 End: 09-06-2022 Michelle Barker LP N Start: 01-27-2022 End: 01-27-2022 Flu immunize order/admin Gibran Hobbs Work Phone: Start: 08-27-2021 End: 08-27-2021 Adv care pln/ no alt dcsn mkr docd or refusal Gibran Samuel MD Work Phone: Start: 08-27-2021 End: 08-27-2021 Depression screening Gibran Samuel MD Work Phone: Start: 08-27-2021 End: 08-27-2021 Falls risk assessment documented Gibran Samuel MD Work Phone: Start: 08-27-2021 End: 08-27-2021 PPPS, subseq visit Gibran Samuel MD Work Phone: Start: 08-27-2021 End: 08-27-2021 Pt falls assess docd w/o fall/injury past year Gibran Samuel MD Work Phone: Start: 08-27-2021 End: 08-27-2021 Scr dep neg, no plan reqd Gibran Samuel MD Work Phone: Start: 08-27-2021 End: 09-16-2021 Screening digital breast tomosynthesis bi Gibran Samuel MD Work Phone: Start: 01-06-2021 End: 01-06-2021 Flu immunize order/admin Gibran Hobbs Work Phone: Start: 08-27-2020 End: 08-27-2020 Depression screening Gibran Samuel MD Work Phone: Start: 08-27-2020 End: 08-27-2020 Falls risk assessment documented Gibran Samuel MD Work Phone: Start: 08-27-2020 End: 08-27-2020 PPPS, subseq visit Gibran Samuel MD Work Phone: Start: 08-27-2020 End: 08-27-2020 Pt falls assess docd w/o fall/injury past year Gibran Samuel MD Work Phone: Start: 08-27-2020 End: 08-27-2020 Scr dep neg, no plan reqd Gibran Samuel MD Work Phone: Start: 01-01-2020 End: 01-01-2020 Flu immunize order/admin Gibran Hobbs Work Phone: Start: 08-13-2019 End: 08-13-2019 Depression screening Gibran Samuel MD Work Phone: Start: 08-13-2019 End: 08-13-2019 Falls risk assessment documented Gibran Samuel MD Work Phone: Start: 08-13-2019 End: 08-13-2019 PPPS, subseq visit Gibran Samuel MD Work Phone: Start: 08-13-2019 End: 08-13-2019 Pt falls assess docd w/o fall/injury past year Gibran Samuel MD Work Phone: Start: 08-13-2019 End: 08-13-2019 Scr dep neg, no plan reqd Gibran Samuel MD Work Phone: Start: 08-13-2019 End: 08-21-2019 Screening mammography Michelle Barker ER MANAGER Start: 08-13-2019 End: 08-21-2019 Dxa bone density study 1/> sites axial skel Gibran Samuel MD Work Phone: Start: 01-10-2019 End: 01-10-2019 Flu immunize order/admin FLOAT NURSE Start: 05-30-2018 End: 05-30-2018 Depression screening Gibran Samuel MD Work Phone: Start: 05-30-2018 End: 05-30-2018 Falls risk assessment documented Gibran Samuel MD Work Phone: Start: 05-30-2018 End: 05-30-2018 PPPS, subseq visit Gibran Samuel MD Work Phone: Start: 05-30-2018 End: 05-30-2018 Pt falls assess docd w/o fall/injury past year Gibran Samuel MD Work Phone: Start: 05-30-2018 End: 05-30-2018 Scr dep neg, no plan reqd Gibran Samuel MD Work Phone: Start: 01-18-2018 End: 01-18-2018 Flu immunize order/admin Gibran Hobbs Work Phone: Start: 11-23-2017 End: 11-23-2017 Pos clin depres scrn f/u doc Gibran Samuel MD Work Phone: Start: 11-23-2017 End: 11-23-2017 Pt falls assess docd w/o fall/injury past year Gibran Samuel MD Work Phone: Start: 11-23-2017 End: 02-03-2018 Screening mammography bi 2-view breast inc cad Gibran Samuel MD Work Phone: Start: 11-23-2017 End: 11-23-2017 Falls risk assessment documented Gibran Samuel MD Work Phone: Start: 11-23-2017 End: 11-23-2017 Depression screen annual Gibran Hobbs Work Phone: Start: 05-23-2017 End: 05-23-2017 Body mass index documented Gibran Samuel MD Work Phone: Start: 05-23-2017 End: 05-23-2017 Most recent diastolic blood pressure 80-89 mm hg Gibran Samuel MD Work Phone: Start: 05-23-2017 End: 05-23-2017 Most recent systolic blood pres>/equal 140 mm hg Gibran Samuel MD Work Phone: Start: 03-22-2017 End: 03-22-2017 Body mass index documented Gibran Samuel MD Work Phone: Start: 01-26-2017 End: 01-26-2017 Screening colonoscopy Michelle Barker LPN Start: 01-25-2017 End: 01-25-2017 Colonoscopy Allen Elizabeth ER MANAGER Start: 11-30-2016 End: 02-02-2017 Screening mammography bi 2-view breast inc cad Gibran Samuel MD Work Phone: Start: 11-30-2016 End: 11-30-2016 Removal skn tags 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 fibrq tags any area upw/15 Gibran Samuel MD Work Phone: Start: 05-25-2016 End: 05-25-2016 PPPS, subseq visit Gibran Samuel MD Work Phone: Start: 05-25-2016 End: 05-25-2016 Pt falls assess docd w/o fall/injury past year Gibran Samuel MD Work Phone: Start: 05-25-2016 End: 05-25-2016 Scr dep neg, no plan reqd Gibran Samuel MD Work Phone: Start: 05-25-2016 End: 05-25-2016 Michelle Barker LP N Start: 05-25-2016 End: 05-25-2016 Falls risk assessment documented Gibran Samuel MD Work Phone: Start: 05-25-2016 End: 05-26-2016 Depression screen annual Gibran Hobbs Work Phone: Start: 04-06-2016 End: 07-11-2019 Mammogram, screening Gibran Samuel MD Work Phone: Start: 12-09-2015 End: 12-23-2015 Mammogram, screening Gibran Samuel MD Work Phone: Start: 11-27-2014 End: 11-27-2014 Michelle Barker LP N Start: 08-13-2014 End: 08-23-2014 Mammogram, screening Gibran Samuel MD Work Phone: Start: 12-19-2013 End: 12-19-2013 Destruction premalignant lesion 1st Gibran Samuel MD Work Phone: Start: 05-23-2013 End: 05-29-2013 Mammogram, screening Gibran Samuel MD Work Phone: Start: 03-15-2012 End: 03-24-2012 Mammogram, screening Gibran Samuel MD Work Phone: Start: 01-12-2011 End: 01-28-2011 Mammogram, screening Gibran Samuel MD Work Phone: Start: 2010 End: 01-28-2010 Mammogram, screening Gibran Samuel MD Work Phone: Start: 12-17-2009 End: 12-17-2009 Arthrocentesis aspir&/inj interm jt/burs w/o us Gibran Samuel MD Work Phone: Allen Elizabeth LP N Plan of Treatment Date Care Activity Detail Author Start: 09-21-2023 Identify. Start: 09-14-2023 Identify. Start: 08-13-2019 Dxa bone density lazaro dy 1/> sites axial skel [employer]. Start: 08-13-2019 Screening mammograph y bi 2-view breast inc cad [employer]. Start: 11-27-2018 Screening mammograph y bi 2-view breast inc cad [employer].; [employer]. Immunizations Immunization Date Immunization Notes Care Provider Gabriela marrero 01-19-2023 influenza virus vacc ine, unspecified formulation Gibran Samuel MD Work Phone: [employer].; [employer]. 01-19-2023 influenza, injectabl e, quadrivalent, preservative free Gibran Samuel MD Work Phone: [employer].; [employer]. 01-27-2022 influenza, injectabl e, quadrivalent, contains preservative Gibran Samuel MD Work Phone: [employer].; [employer]. 01-27-2022 influenza virus vacc ine, unspecified formulation Gibran Samuel MD Work Phone: [employer]; [employer]. 03-25-2021 Gibran Samuel MD Work Phone: [employer].; [facility]. 01-06-2021 influenza virus vacc ine, unspecified formulation Gibran Samuel MD Work Phone: [facility].; [facility]. 01-06-2021 influenza, injectabl e, quadrivalent, contains preservative Gibran Samuel MD Work Phone: [email or web address].; [facility]. 06-09-2020 Gibran Samuel MD Work Phone: [facility].; [facility]. 05-19-2020 Gibran Samuel MD Work Phone: [facility].; [place] [employer] [facility]. 02-05-2020 zoster vaccine recombinant Gibran Samuel MD Work Phone: [facility].; [place] [employer] [facility]. 01-01-2020 influenza virus vacc ine, unspecified formulation Gibran Samuel MD Work Phone: [facility].; [place] [employer] [facility]. 01-01-2020 influenza, injectabl e, quadrivalent, contains preservative Gibran Samuel MD Work Phone: [facility].; [place] [employer] [facility]. 11-27-2019 zoster vaccine recombinant Gibran Samuel MD Work Phone: [facility].; [employer]. 08-13-2019 Shingrix (PF) Gibran Samuel MD Work Phone: [facility].; [employer] [facility]. 01-10-2019 influenza, injectabl e, quadrivalent, contains preservative Gibran Samuel MD Work Phone: [facility].; [place] [employer]. 01-10-2019 influenza virus vacc ine, unspecified formulation Gibran Samuel MD Work Phone: [facility].; [employer]. 05-30-2018 diphtheria, tetanus toxoids and acellular pertussis vaccine, unspecified formulation Gibran Samuel MD Work Phone: [facility].; [facility] 05-30-2018 tetanus toxoid, redu luz elena diphtheria toxoid, and acellular pertussis vaccine, adsorbed Gibran Samuel MD Work Phone: [facility].; [facility] 01-18-2018 influenza, injectabl e, quadrivalent, contains preservative Gibran Samuel MD Work Phone: [facility].; [facility] 01-18-2017 influenza, injectabl e, quadrivalent, contains preservative Gibran Samuel MD Work Phone: [facility].; [facility] 05-25-2016 pneumococcal conjuga te vaccine, 13 valent Gibran Samuel MD Work Phone: [facility].; [facility] 01-15-2016 unknown vaccine or i mmune globulin Gibran Samuel MD Work Phone: [facility].; [facility] 01-15-2016 influenza, injectabl e, quadrivalent, contains preservative Gibran Samuel MD Work Phone: [facility]; [facility] 12-25-2014 Gibran Samuel MD Work Phone: [facility].; [facility] 12-25-2014 influenza, seasonal, injectable Gibran Samuel MD Work Phone: [facility].; [facility] 11-27-2014 zoster vaccine, live Gibran joseph MD Work Phone: [facility].; [facility] 01-01-2014 influenza, seasonal, injectable Gibran Samuel MD Work Phone: [facility].; [facility]. 01-01-2014 Gibran Samuel MD Work Phone: [facility].; [facility] 01-03-2013 influenza, seasonal, injectable Gibran Samuel MD Work Phone: [facility].; [facility] 01-03-2013 Gibran Samuel MD Work Phone: [facility].; [facility] 02-25-2012 influenza, seasonal, injectable Gibran Samuel MD Work Phone: [facility].; [facility] 02-25-2012 Gibran Samuel MD Work Phone: [facility].; [facility] 12-08-2010 influenza, seasonal, injectable Gibran Samuel MD Work Phone: [email or web address].; [facility], [facility]. 12-08-2010 Gibran Samuel MD Work Phone: [facility].; [facility] 12-04-2010 influenza, seasonal, injectable Gibran Samuel MD Work Phone: [facility].; [facility] 01-13-2010 influenza, seasonal, injectable Gibran Samuel MD Work Phone: [facility].; [facility] 01-13-2010 Gibran Samuel MD Work Phone: [facility].; [place] [employer] [facility], [facility]. 01-24-2006 pneumococcal polysaccharide vaccine, 23 valent Gibran Samuel MD Work Phone: [facility].; [place] [employer] [facility], [facility]. Payers Date Payer Category Payer Unknown [id number] 1945 Unknown [id number] 1945 Unknown [id number] Medicare [id number] Medicare [id number] Private Health Insurance Unknown Social History Date Type Detail Facility None[facility].; [facility] [employer].; [facility], [employer]. Never smoker. [facility], [facility].; [facility], [facility]. Summary Purpose Family History Cerebrovascular Accident Status:Active Comment s:Mother. Heart Disease Status:Active Comments:Mother. Cerebrovascular Accident Status:Active Comment s:Mother. Heart Disease Status:Active Comments:Mother. Cerebrovascular Accident Status:Active Comment s:Mother. Heart Disease Status:Active Comments:Mother. Cerebrovascular Accident Status:Active Comment s:Mother. Heart Disease Status:Active Comments:Mother. Advance Directives Living Will - Effective on . Expiration date unspecified. Scanned Document is available upon request. Effective:08-Oct-2022 Living Will - Effective on . Expiration date unspecified. Scanned Document is available upon request. Effective:08-Oct-2022 Living Will - Effective on . Expiration date unspecified. Scanned Document is available upon request. Effective:08-Oct-2022 Living Will - Effective on . Expiration date unspecified. Scanned Document is available upon request. Effective:08-Oct-2022 Additional Source Comments INFORMATION SOURCE (unrecogn ized section and content) DATE CREATED AUTHOR AUTHOR'S ORGANIZ ATION 09/02/2017 [facility] DATE CREATED AUTHOR AUTHOR'S ORGANIZ ATION 01/26/2018 [facility] DATE CREATED AUTHOR AUTHOR'S ORGANIZ ATION 08/20/2022 [facility] DATE CREATED AUTHOR AUTHOR'S ORGANIZ ATION 09/07/2022 [facility] FOR RECORDS PERTAINING TO PATIENTS WHO ARE OR HAVE BEEN ENROLLED IN A CHEMICAL DEPENDENCY/SUBSTANCEABUSE PROGRAM, SOME INFORMATION MAY BE OMITTED. This clinical summary was aggregated from multiple sources. Caution should be exercised in using it in the provision of clinical care. This summary normalizes information from multiple sources, and as a consequence, information in this document may materially change the coding, format and clinical context of patient data. In addition, data may be omitted in some cases. CLINICAL DECISIONS SHOULD BE BASED ON THE PRIMARY CLINICAL RECORDS. [employer] provides no warranty or guarantee of the accuracy or completeness of information in this document.
[2023-04-21 07:28] LABS: Hematocrit 40.6 % (37-47); Hemoglobin 12.9 g/dL (12.0-15.0); Mean Corp Hgb Conc 31.8 g/dL (32-36); Mean Corpuscular Hgb 27.7 pg (27.0-32.0); Mean Corpuscular Volume 87.1 fL (81-99); Mean Platelet Vol. 8.9 fl (6.2-12.0); Platelet Count 363 K/mm3 (150-450); RBC Distribution Width CV 15.1 % (11.6-14.6); RBC Distribution Width SD 48.6 fl (35.1-43.9); Red Blood Count 4.66 M/mm3 (4.2-5.4); White Blood Count 7.3 K/mm3 (4.4-11.0)
[2023-04-21 07:51] LABS: ALB/GLOB Ratio 1.2 RATIO (0.9-2.4); AST(SGOT) 18 U/L (15-37); Alanine Aminotransfer ALT/SGPT 15 U/L (13-56); Albumin, Serum 3.9 g/dL (3.2-5.0); Alkaline Phosphatase 89 U/L (45-117); Anion Gap 3 (5-15); BUN 16 mg/dL (7-18); BUN/Creat Ratio 18.5 RATIO (10-20); Calcium,Total 9.9 mg/dL (8.5-10.1); Chloride 109 mmol/L (98-107); Creatinine, Serum 0.87 mg/dL (0.55-1.02); EST Glomerular Filtration Rate 67 mL/min (>60); Est Glom Filt Rate - Afr Amer 81 mL/min (>60); Estimated Creatinine Clearance 50.75 ml/min; Globulin 3.2 g/dL (2.2-4.2); Glucose 103 mg/dL (74-106); Potassium 4.1 mmol/L (3.5-5.1); Protein, Total 7.1 g/dL (6.4-8.2); Sodium Level 139 mmol/L (136-145)
--- NOTE | 2023-04-21 11:45 | PCM.OPRPT ---
Report of Operation Date of Procedure: 04/21/23 Pre-Operative Diagnosis: venous insufficiency with ulceration Post-Operative Diagnosis: same; IVC, left common iliac and bilateral external iliac vein compression Surgery/Procedure Performed:: IVC venogram IVUS IVC, bilateral common, bilateral external iliac veins angioplasty/stent IVC, bilateral common/external iliac veins Surgeon: Pablo Klein Type of Anesthesia: Local and Sedation,Conscious Estimated Blood Loss (mL): 2 Description of Procedure: HPI: Patient is a 70-year-old female with longstanding bilateral lower extremity varicosities and right lower extremity venous ulceration. She has significant reflux throughout but given the severity of her venous disease and skin compromise is felt that evaluation of the central system for obstruction is warranted. She is taken now for venogram with possible intervention. Description of procedure: Upon obtaining form consent and verification correct patient procedure site patient was taken to the [facility] where she was positioned prepped and draped in usual sterile fashion. Time was performed conscious sedation administered Versed and fentanyl. Skin overlying the right common femoral vein was anesthetized with 1% lidocaine the vessel accessed under ultrasound guidance with micropuncture needle wire. This was exchanged for micropuncture sheath which injection ilio caval venogram was performed. Through the micropuncture sheath a Bentson wire advanced the micropuncture sheath exchanged out for a 10 English sheath. Next skin overlying the left common femoral vein was anesthetized with 1% lidocaine the vessel accessed under ultrasound guidance with micropuncture needle wire. This then exchanged out for micropuncture sheath through which injection ilio caval venogram was performed. Micropuncture sheath a J-wire was advanced micropuncture sheath exchanged out for a 10 English sheath. Patient was in heparinized allowed to circulate for 3 minutes. Intravascular sound probe was then advanced via the right femoral access sheath and recorded pullback of the IVC, right common iliac vein, right external iliac was performed. This revealed significant compression of the distal inferior vena cava as well as the right common and external iliac veins. The ultrasound probe was then withdrawn and advanced to the left femoral access sheath and recorded pullback of the IVC, left common iliac vein, left external vein was performed. This again confirmed IVC compression was left common vein compression in the left external vein compression. Right common iliac vein compression was 33%, the external vein was 59%. The left common iliac vein compression was 55% in the left external leg vein was 45%. There is also common femoral vein compression, the right 89% in the left 79%. There is no adequate reference vessel to confirm vena cava compression at the entire vessel was underfilled superior to the compression. Is felt that the combination of multilevel compression warranted treatment so the proximal distal edge of compression of the IVC and the common iliac vein was marked. The IVC and the common iliac veins were then predilated 14 mm angioplasty balloons with no significant discomfort for the patient. [employer] wallstents 16 x 90 were then advanced via each of the femoral access sheath and aligned within the inferior vena cava with adequate coverage superior to the compression. These were then deployed and then first dilated with a 10 mm angioplasty balloon followed by post dilation with a 14 mm angioplasty balloon. Patient did experience some discomfort during ballooning after the stent however this resolved after balloon deflation. Repeat venogram revealed that there was actually a dual system of the left common iliac vein and that the stent appeared to be in the smaller of the 2 vessels so intravascular sound probe was advanced and recorded pullback performed. This confirmed that there was in fact a dual system however unstented vein was still overall small caliber but was widened given the appearance of larger caliber on the venogram when in fact the stented segment appeared to be the larger of the 2 on intravascular ultrasound. This segment was repeat balloon angioplasty with a 14 mm angioplasty balloon further improvement in the stented vessel lumen and stent expansion. In order to treat the entirety of the external iliac and common femoral vein disease a second stent was required on each side. First a Bard Venovo 14 x 100 was advanced in position with satisfactory overlap in the left sided stent and then deployed. This was then postdilated to 10 mm angioplasty balloon. Repeat intravascular ultrasound recorded pullback was performed which revealed satisfactory stent to wall apposition throughout the IVC and the left common and external iliac veins with no residual compression. Next a [employer] Abre 18 x 100 stent was advanced to the right femoral access sheath with satisfactory overlap into the initial right-sided stent and then deployed. This was then postdilated with a 12 mm angioplasty balloon. Again recorded intravascular sound pullback confirmed satisfactory stent wall apposition throughout with no residual compression. Repeat venogram confirmed brisk contrast transit with no extravasation or dissection and no apparent residual compression on venogram imaging. Silk suture was then placed at the femoral access sites and secured after which the sheath and wires were withdrawn. Manual pressure was then held and the patient taken the recovery room with bedrest prior to discharge home. Grafts/Implants Used: BostonWallstent [id number] x 2,BardVenovo [id number]
[2023-04-21 15:39] LABS: ACT Activated Clotting Time 212 sec (74-137)
[2023-04-21 15:40] LABS: ACT Activated Clotting Time 228 sec (74-137)
== END 2023-04-21 14:35 | disposition home or self-care (01) ==
PROVIDERS: PCP Family Medicine; Referring Provider Surgery Trauma Surgery; Visit Provider Surgery Trauma Surgery
DX: I87.1 Compression of vein (principal); L97.819 Non-pressure chronic ulcer of other part of right lower leg with unspecified severity; I83.018 Varicose veins of right lower extremity with ulcer other part of lower leg; I87.2 Venous insufficiency (chronic) (peripheral); I83.93 Asymptomatic varicose veins of bilateral lower extremities; Z79.899 Other long term (current) drug therapy; I10 Essential (primary) hypertension
CPT/HCPCS: 36010; 36415; 37238; 37239; 37252; 37253; 75825; 76937; 80053; 85027; 85347; 99152; 99153; C1725; C1753; C1769; C1876; C1894; J7040; Q9967; J2405

== ENCOUNTER 2023-05-04 10:15 | Outpatient (RCR) | payer MEDICARE, SELFPAY ==
[2023-04-14 00:33] VITALS: BP 179/65; PULSE 78; RESP 20; TEMP 36.4; BMI 21.6
[2023-04-20 10:54] VITALS: BP 181/77; PULSE 75; RESP 16; TEMP 36.2; BMI 21.6
--- NOTE | 2023-04-20 11:45 | PN.PCM_ITS ---
History of Present Illness Date of Service: 04/20/23 Chief Complaint: Right leg wound History of Wound: Right leg wound Subjective Subjective Mrs. Booker is a 78-year-old female presenting to wound care center follow-up evaluation of venous stasis ulceration to the medial aspect of the right ankle. Patient has been doing home dressing changes with Aileen dry sterile dressing and a single layer Tubigrip to right lower extremity. Patient followed up with vascular surgeon we will plan for great saphenous vein ablation on 04/21/[address] Klein. She denies trauma. Denies constitutional symptoms. No other pedal complaints at this time. Objective Data Objective Data Vital Signs: Vital Signs Temp Pulse Resp BP O2 Del Method 97.1 F L 75 16 181/77 H Room Air 04/20/23 10:54 04/20/23 10:54 04/20/23 10:54 04/20/23 10:54 04/20/23 10:54 Oxygen Delivery Method Room Air Weight: 62.596 kg Body Mass Index (BMI) 21.6 Physical Exam Narrative Vascular: DP and PT pulses are palpable. CFT is brisk. Skin temperature gradient is warm to warm from proximal ankle to distal digits. Blanchable erythema is appreciated to the periwound of the right lower extremity. Nonpitting edema is appreciated to the right lower extremity. Cobblestone appearance appreciated to the medial aspect of the right leg with hemosiderin deposits. Neurological: Light touch intact. Patient response to painful stimuli. Dermatological: Full-thickness ulceration measuring 0.6 x 0.7 x 0.1 cm. Wound base is granular in nature. No drainage. No malodor. Evidence of blanchable erythema to periwound. Evidence of cobblestone appearance around periwound as well. Excisional debridement down to and including subcutaneous tissue of the medial ankle full-thickness ulceration with a number 5 mm dermal curette without incident. Predebridement measurement was 0.4 x 0.3 x 0.1 cm. Postdebridement measurement is 0.6 x 0.7 x 0.1 cm. Musculoskeletal: Mild pain to palpation of full-thickness ulceration of the right ankle. No pain with calf compression. Debridement Note Debridement Note Debridement Free Text: Excisional debridement down to and including subcutaneous tissue of the medial ankle full-thickness ulceration with a number 5 mm dermal curette without incident. Predebridement measurement was 0.4 x 0.3 x 0.1 cm. Postdebridement measurement is 0.6 x 0.7 x 0.1 cm. Post-Debridement Measurements and Additional Note: Post-Debridement Measurements/Treatment - Nurse 1 - General Ulcer Assessment Start: 04/20/23 10:54 Freq: Status: Active Protocol: TREE Activity Type Activity Date Activity User E-sign Co-sign Detail Recorded Client Recorded Date Recorded By Document 04/20/23 10:54 Desktop 04/20/23 10:57 04/20/23 10:54 WC - Today's Visit Information Type of service Follow-up Visit (Physician/LIABILITY CLAIMS REPRESENTATIVE ) Arrival Mode Ambulatory Transfer Assistance None Accompanied by Patient Identification Verified (Name & Yes ) Patient Requires Transmission-Based No Precautions Height and Weight Body Mass Index (BMI) 21.6 BMI Classification Normal Vital Signs Temperature (97.8 F-99.1 F) 97.1 F L Temperature Source Temporal Pulse Rate (60-100) 75 Pulse Location Monitor Respiratory Rate (12-18) 16 Respiratory rate source Observation Oxygen Delivery Method Room Air Blood Pressure (90/60-120/80) 181/77 H Blood Pressure Mean (mm Hg) 111 Source Monitor Position Semi-Fowlers Blood Pressure Location Left Arm History Since Last Visit- (Skip if this is Patient's initial visit) Have you changed medications since your No last visit? Any new allergies or adverse reactions No Had a fall/change in ADL's that may No increase risk of falls Signs or symptoms of abuse and/or No neglect since last visit Have you been in the hospital since your No last visit? Has dressing in place as prescribed Yes Has compression in place as prescribed Yes Has offloadiing in place as prescribed No Experienced any changes in pain level or No management Left Footwear Regular Shoe Pain Scale: 0-10 Numeric Is Patient Pain Free? Yes - Nurse 1 - General Ulcer Measurement Start: 04/20/23 10:54 Freq: Status: Active Protocol: Activity Type Activity Date Activity User E-sign Co-sign Detail Recorded Client Recorded Date Recorded By Document 04/20/23 10:54 Desktop 04/20/23 10:57 04/20/23 10:54 Wound Center Nurse 1 #1 RIGHT Medial Ankle -Current Size (cm) - Length 1.4 -Current Size (cm) - Width 0.9 -Current Size (cm) - Depth 0.1 -Total Square Cm 1.26 -Date of Last Picture (Recall this 04/20/23 field) -Photo Taken Yes -Epithelialization Small 1-33% -Tunneling No -Undermining/Tunneling No -Circular Undermining No -Exudate Amt Medium -Exudate Type Yellow/Green -Wound Margin Distinct, Outline Attached -Granulation Amt Small (1-33%) -Granulation Quality [place] -Slough/Fibrin Yes -Necrosis Amt Small (1-33%) -Necrotic Tissue Type Adherent Slough -Structure Exposed N/A -Texture (Angela-wound Skin Appearance) Assessed, Scarring -Moisture (Angela-wound Skin Appearance) Assessed, Maceration -Color (Angela-wound Skin Appearance) Assessed -Temperature (Angela-wound Skin No Abnormality Appearance) (Pt Warm) -Tenderness on Palpation (Angela-wound No Skin Appearance) -Ulcer Cleansing Rinsed/ Irrigated with Saline -Foul Odor after Cleansing No -Anesthetic Used 5% Lidocaine Gel Lower Limb Edema Present No Right Calf (cm) 33.4 Right Ankle (cm) 22.5 WC - Nurse 2 - General Ulcer CM Notes Start: 04/20/23 10:54 Freq: Status: Active Protocol: Activity Type Activity Date Activity User E-sign Co-sign Detail Recorded Client Recorded Date Recorded By Document 04/20/23 11:02 Laptop 04/20/23 11:03 04/20/23 11:02 Wound Center Nurse 2 #1 RIGHT Medial Ankle -Time 11:02 -Correct Patient Yes -Correct Side, Site, Position Yes -Correct Procedure Yes -Procedure Performed Yes -Type of Procedure Debridement -Clinical Debridement Subcutaneous -Tissue Removed Subcutaneous -Post Debridement (cm) - Length 0.6 -Post Debridement (cm) - Width 0.7 -Post Debridement (cm) - Depth 0.1 -Total Square (Post) (cm) 0.42 -Area of Debridement (cm) - Length 0.6 -Area of Debridement (cm) - Width 0.7 -Total Square (Area) (cm) 0.42 -Tunneling No -Undermining/Tunneling No -Circular Undermining No -Wound/Ulcer Outcome Not Healed -Ulcer Cleansing Rinsed/ Irrigated with Saline -Foul Odor after Cleansing No -Bioengineered Tissue No -Bleeding Controlled with Pressure -Treatment Response Procedure Tolerated Well -Offloading No -Debridement - Subq, 1st 20sq cm Yes Pain Scale: 0-10 Numeric Is Patient Pain Free? Yes WC - Nurse 3 - General Ulcer D/C NN Start: 04/20/23 10:54 Freq: Status: Active Protocol: Activity Type Activity Date Activity User E-sign Co-sign Detail Recorded Client Recorded Date Recorded By Document 04/20/23 11:26 PL Tablet 04/20/23 11:27 PL 04/20/23 11:26 Wound Care Center Nurse 3 #1 RIGHT Medial Ankle -Ulcer Cleansing Rinsed/ Irrigated with Saline -Primary Dressing Applied Mepilex Border -Other Dressing Betadine -Mepilex Border 1 Pain Scale: 0-10 Numeric Is Patient Pain Free? Yes WC - Visit Discharge Discharge Condition Stable Ambulatory Status Ambulatory Assessment/Plan Assessment/Plan (1) Non-pressure chronic ulcer of right ankle with fat layer exposed: CODE(S): L97.312 - Non-pressure chronic ulcer of right ankle with fat layer exposed PLAN: Patient was examined and evaluated. All findings were discussed with the patient. All questions were answered to the patient's satisfaction. Excisional debridement down to and including subcutaneous tissue of the medial ankle full-thickness ulceration with a number 5 mm dermal curette without incident. Predebridement measurement was 0.4 x 0.3 x 0.1 cm. Postdebridement measurement is 0.6 x 0.7 x 0.1 cm. Area was dressed with Betadine paint, dry sterile dressing and single-layer Tubigrip was donned to the right lower extremity. Educated the patient continue daily dressing changes with the Betadine and that she is given the okay to wash her right lower extremity with warm water and soap. She will follow-up with Dr. Klein tomorrow for intervention. Follow-up at the wound care center with Dr. Emerson in 1 week. (2) Venous insufficiency: CODE(S): I87.2 - Venous insufficiency (chronic) (peripheral)
[2023-04-27 10:15] VITALS: BP 178/77; PULSE 77; RESP 20; TEMP 35.8; BMI 21.6
--- NOTE | 2023-04-27 11:57 | PCM.WC.PN ---
History of Present Illness Date of Service: 04/27/23 Chief Complaint: Right leg wound History of Wound: Right leg wound Subjective Subjective Mrs. Booker is a 78-year-old female presenting to wound care center follow-up evaluation of venous stasis ulceration to the medial aspect of the right ankle. Patient has been doing home dressing changes consisting of Betadine paint dry sterile dressing and Tubigrip to right lower extremity. Patient is status post right lower extremity intervention by vascular surgery, Dr. Klein. DOS 04/21/2023. Patient is recovering well. Her and her believe the wound is now healed. She denies any trauma. She denies any drainage to the area. She denies any constitutional symptoms. No other pedal complaints at this time. Objective Data Objective Data Vital Signs: Vital Signs Temp Pulse Resp BP O2 Del Method 96.5 F L 77 20 H 178/77 H Room Air 04/27/23 10:15 04/27/23 10:15 04/27/23 10:15 04/27/23 10:15 04/20/23 10:54 Oxygen Delivery Method Room Air Weight: 62.596 kg Body Mass Index (BMI) 21.6 Physical Exam Narrative Vascular: DP and PT pulses are palpable. CFT is brisk. Skin temperature gradient is warm to warm from proximal ankle to distal digits. Blanchable erythema is appreciated to the periwound of the right lower extremity. Nonpitting edema is appreciated to the right lower extremity. Cobblestone appearance appreciated to the medial aspect of the right leg with hemosiderin deposits. Neurological: Light touch intact. Patient response to painful stimuli. Dermatological: Full-thickness ulceration measuring 0.1 x 0.1 x 0.1 cm. Wound base is granular in nature. No drainage. No malodor. Evidence of blanchable erythema to periwound. Evidence of cobblestone appearance around periwound as well. Excisional debridement down to and including subcutaneous tissue of the medial ankle full-thickness ulceration with a number 3 mm dermal curette without incident. Predebridement measurement was callus. Postdebridement measurement is 0.1 x 0.1 x 0.1 cm. Musculoskeletal: Mild pain to palpation of full-thickness ulceration of the right ankle. No pain with calf compression. Debridement Note Debridement Note Debridement Free Text: Excisional debridement down to and including subcutaneous tissue of the medial ankle full-thickness ulceration with a number 3 mm dermal curette without incident. Predebridement measurement was callus. Postdebridement measurement is 0.1 x 0.1 x 0.1 cm. 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 ) ) Arrival Mode Ambulatory Ambulatory Transfer Assistance None None Accompanied by Patient Identification Verified (Name & Yes Yes ) Patient Requires Transmission-Based No No Precautions Height and Weight Body Mass Index (BMI) 21.6 21.6 BMI Classification Normal Normal Vital Signs Temperature (97.8 F-99.1 F) 97.1 F L 96.5 F L Temperature Source Temporal Temporal Pulse Rate (60-100) 75 77 Pulse Location Monitor Monitor Respiratory Rate (12-18) 16 20 H Respiratory rate source Observation Observation Oxygen Delivery Method Room Air Blood Pressure (90/60-120/80) 181/77 H 178/77 H Blood Pressure Mean (mm Hg) 111 110 Source Monitor Monitor Position Semi-Fowlers Blood Pressure Location Left Arm History Since Last Visit- (Skip if this is Patient's initial visit) Have you changed medications since your No No last visit? Any new allergies or adverse reactions No No Had a fall/change in ADL's that may No No increase risk of falls Signs or symptoms of abuse and/or No No neglect since last visit Have you been in the hospital since your No No last visit? Has dressing in place as prescribed Yes Yes Has compression in place as prescribed Yes Yes Has offloadiing in place as prescribed No N/A Experienced any changes in pain level or No management Left Footwear Regular Shoe Pain Scale: 0-10 Numeric Is Patient Pain Free? Yes Yes HEBERT - Nurse 1 - General Ulcer Measurement Start: 04/20/23 10:54 Freq: Status: Active Protocol: Activity Type Activity Date Activity User E-sign Co-sign Detail Recorded Client Recorded Date Recorded By Document 04/20/23 10:54 GM Desktop 04/20/23 10:57 GM Document 04/27/23 10:15 DL Desktop 04/27/23 10:20 DL 04/20/23 04/27/23 10:54 10:15 Wound Center Nurse 1 #1 RIGHT Medial Ankle -Current Size (cm) - Length 1.4 0.1 -Current Size (cm) - Width 0.9 0.1 -Current Size (cm) - Depth 0.1 0.1 -Total Square Cm 1.26 0.01 -Date of Last Picture (Recall this 04/20/23 field) -Photo Taken Yes -Epithelialization Small 1-33% -Tunneling No -Undermining/Tunneling No -Circular Undermining No -Exudate Amt Medium None Present -Exudate Type Yellow/Green -Wound Margin Distinct, Indistinct, Non Outline -Visible Attached -Granulation Amt Small (1-33%) Large (67-100%) -Granulation Quality [place] -Slough/Fibrin Yes -Necrosis Amt Small (1-33%) None Present (0 %) -Necrotic Tissue Type Adherent Slough -Structure Exposed N/A -Texture (Angela-wound Skin Appearance) Assessed, Scarring Scarring -Moisture (Angela-wound Skin Appearance) Assessed, Dry/Scaly Maceration -Color (Angela-wound Skin Appearance) Assessed Hemosiderin Staining -Temperature (Angela-wound Skin No Abnormality No Abnormality Appearance) (Pt Warm) (Pt Warm) -Tenderness on Palpation (Angela-wound No No Skin Appearance) -Ulcer Cleansing Rinsed/ Soap and Water Irrigated with Saline -Foul Odor after Cleansing No No -Anesthetic Used 5% Lidocaine 5% Lidocaine Gel Gel Lower Limb Edema Present No Right Calf (cm) 33.4 32.5 Right Ankle (cm) 22.5 22.2 WC - Nurse 2 - General Ulcer CM Notes Start: 04/20/23 10:54 Freq: Status: Active Protocol: Activity Type Activity Date Activity User E-sign Co-sign Detail Recorded Client Recorded Date Recorded By Document 04/20/23 11:02 JF Laptop 04/20/23 11:03 Document 04/27/23 10:49 Laptop 04/27/23 10:54 04/20/23 04/27/23 11:02 10:49 Wound Center Nurse 2 #1 RIGHT Medial Ankle -Time 11:02 10:50 -Correct Patient Yes No -Correct Side, Site, Position Yes No -Correct Procedure Yes No -Procedure Performed Yes No -Type of Procedure Debridement -Clinical Debridement Subcutaneous -Tissue Removed Subcutaneous -Post Debridement (cm) - Length 0.6 0.1 -Post Debridement (cm) - Width 0.7 0.1 -Post Debridement (cm) - Depth 0.1 0.1 -Total Square (Post) (cm) 0.42 0.01 -Area of Debridement (cm) - Length 0.6 0.1 -Area of Debridement (cm) - Width 0.7 0.1 -Total Square (Area) (cm) 0.42 0.01 -Tunneling No -Undermining/Tunneling No -Circular Undermining No -Wound/Ulcer Outcome Not Healed Healed- Epithelialized -Ulcer Cleansing Rinsed/ Irrigated with Saline -Foul Odor after Cleansing No -Bioengineered Tissue No -Bleeding Controlled with Pressure -Treatment Response Procedure Tolerated Well -Offloading No -Debridement - Subq, 1st 20sq cm Yes No Pain Scale: 0-10 Numeric Is Patient Pain Free? Yes Yes - Nurse 3 - General Ulcer D/C NN Start: 04/20/23 10:54 Freq: Status: Active Protocol: Activity Type Activity Date Activity User E-sign Co-sign Detail Recorded Client Recorded Date Recorded By Document 04/20/23 11:26 PL Tablet 04/20/23 11:27 PL Document 04/27/23 10:56 Laptop 04/27/23 10:57 04/20/23 04/27/23 11:26 10:56 Wound Care Center Nurse 3 #1 RIGHT Medial Ankle -Ulcer Cleansing Rinsed/ Rinsed/ Irrigated with Irrigated with Saline Saline -Foul Odor after Cleansing No -Primary Dressing Applied Mepilex Border -Other Dressing Betadine -Mepilex Border 1 Right -Tubular Bandage Single Layer -Size of Tubigrip Used Size D -Size D ($) 0 Pain Scale: 0-10 Numeric Is Patient Pain Free? Yes Yes - Visit Discharge Discharge Condition Stable Stable Ambulatory Status Ambulatory Ambulatory Transportation Private Auto Accompanied by Medication Reconcilliation completed & Yes provided to patient/care provider Clinical Summary of Care Provided Yes Assessment/Plan Assessment/Plan (1) Non-pressure chronic ulcer of right ankle with fat layer exposed: CODE(S): L97.312 - Non-pressure chronic ulcer of right ankle with fat layer exposed PLAN: Patient was examined and evaluated. All findings were discussed with the patient. All questions were answered to the patient's satisfaction. Excisional debridement down to and including subcutaneous tissue of the medial ankle full-thickness ulceration with a number 3 mm dermal curette without incident. Predebridement measurement was callus. Postdebridement measurement is 0.1 x 0.1 x 0.1 cm. The patient's wound is stable. No need for continued Betadine or dry sterile dressing. Right lower extremity was dressed with lotion followed by a single layer Tubigrip. Educated the patient and her to continue to watch the medial right ankle for any drainage and if so, they are to continue Betadine paint and dry sterile dressing and single-layer Tubigrip. Patient and her are grateful for her care. Follow-up at the wound care center with Dr. Emerson in 1 week. (2) Venous insufficiency: CODE(S): I87.2 - Venous insufficiency (chronic) (peripheral) (3) Pain in right ankle: CODE(S): M25.571 - Pain in right ankle and joints of right foot QUALIFIERS: Chronicity: acute Qualified Code(s): M25.571 - Pain in right ankle and joints of right foot
[2023-05-04 10:19] VITALS: BP 182/82; PULSE 79; RESP 18; TEMP 36.8; BMI 21.6
--- NOTE | 2023-05-04 11:51 | PCM.WC.PN ---
History of Present Illness Date of Service: 05/04/23 Chief Complaint: Right leg wound History of Wound: Right leg wound Subjective Subjective Mrs. Booker is a 78-year-old female presenting to wound care center follow-up evaluation of venous stasis ulceration to the medial aspect of the right ankle. Patient has been doing home dressing changes consisting of Betadine paint dry sterile dressing and Tubigrip to right lower extremity. Patient is status post right lower extremity intervention by vascular surgery, Dr. Klein. DOS 04/21/2023. Patient is recovering well. Her and her believe the wound is now healed. She denies any trauma. She denies any drainage to the area. She denies any constitutional symptoms. No other pedal complaints at this time. Objective Data Objective Data Vital Signs: Vital Signs Temp Pulse Resp BP O2 Del Method 98.2 F 79 18 182/82 H Room Air 05/04/23 10:19 05/04/23 10:19 05/04/23 10:19 05/04/23 10:19 05/04/23 10:19 Oxygen Delivery Method Room Air Weight: 62.596 kg Body Mass Index (BMI) 21.6 Physical Exam Narrative Vascular: DP and PT pulses are palpable. CFT is brisk. Skin temperature gradient is warm to warm from proximal ankle to distal digits. No erythema is appreciated. Cobblestone appearance appreciated to the right lower extremity. Neurological: Light touch intact. Patient response to painful stimuli. Dermatological: Full-thickness ulceration right ankle is haled. No erythema or sign of infection. Musculoskeletal: No pain to palpation to the full-thickness ulceration that is healed to the right ankle. No pain with calf compression Debridement Note Debridement Note Post-Debridement Measurements and Additional Note: Post-Debridement Measurements/Treatment WC - Nurse 1 - General Ulcer Assessment Start: 04/20/23 10:54 Freq: Status: Active Protocol: HEBERT.LOWEXT Activity Type Activity Date Activity User E-sign Co-sign Detail Recorded Client Recorded Date Recorded By Document 04/20/23 10:54 GM Desktop 04/20/23 10:57 GM Document 04/27/23 10:15 DL Desktop 04/27/23 10:20 DL Document 05/04/23 10:19 KW Desktop 05/04/23 10:20 KW 04/20/23 04/27/23 05/04/23 10:54 10:15 10:19 - Today's Visit Information Type of service Follow-up Visit Follow-up Visit Follow-up Visit (Physician/TELECASTING TECHNICIAN (Physician/TELECASTING TECHNICIAN (Physician/TELECASTING TECHNICIAN ) ) ) Arrival Mode Ambulatory Ambulatory Ambulatory Transfer Assistance None None Accompanied by Patient Identification Verified (Name & Yes Yes Yes ) Patient Requires Transmission-Based No No Precautions Height and Weight Body Mass Index (BMI) 21.6 21.6 21.6 BMI Classification Normal Normal Normal Vital Signs Temperature (97.8 F-99.1 F) 97.1 F L 96.5 F L 98.2 F Temperature Source Temporal Temporal Temporal Pulse Rate (60-100) 75 77 79 Pulse Location Monitor Monitor Monitor Respiratory Rate (12-18) 16 20 H 18 Respiratory rate source Observation Observation Observation Oxygen Delivery Method Room Air Room Air Blood Pressure (90/60-120/80) 181/77 H 178/77 H 182/82 H Blood Pressure Mean (mm Hg) 111 110 115 Source Monitor Monitor Monitor Position Semi-Fowlers Semi-Fowlers Blood Pressure Location Left Arm Left Arm History Since Last Visit- (Skip if this is Patient's initial visit) Have you changed medications since your No No No last visit? Any new allergies or adverse reactions No No No Had a fall/change in ADL's that may No No No increase risk of falls Signs or symptoms of abuse and/or No No No neglect since last visit Have you been in the hospital since your No No No last visit? Has dressing in place as prescribed Yes Yes Has compression in place as prescribed Yes Yes Yes Has offloadiing in place as prescribed No N/A N/A Experienced any changes in pain level or No No management Left Footwear Regular Shoe Regular Shoe Right Footwear Regular Shoe Pain Scale: 0-10 Numeric Is Patient Pain Free? Yes Yes Yes - Nurse 1 - General Ulcer Measurement Start: 04/20/23 10:54 Freq: Status: Active Protocol: Activity Type Activity Date Activity User E-sign Co-sign Detail Recorded Client Recorded Date Recorded By Document 04/20/23 10:54 GM Desktop 04/20/23 10:57 GM Document 04/27/23 10:15 DL Desktop 04/27/23 10:20 DL Document 05/04/23 10:19 KW Desktop 05/04/23 10:20 KW 04/20/23 04/27/23 05/04/23 10:54 10:15 10:19 Wound Center Nurse 1 #1 RIGHT Medial Ankle -Current Size (cm) - Length 1.4 0.1 0 -Current Size (cm) - Width 0.9 0.1 0 -Current Size (cm) - Depth 0.1 0.1 0 -Total Square Cm 1.26 0.01 0 -Date of Last Picture (Recall this 04/20/23 field) -Photo Taken Yes -Epithelialization Small 1-33% -Tunneling No -Undermining/Tunneling No -Circular Undermining No -Exudate Amt Medium None Present -Exudate Type Yellow/Green -Wound Margin Distinct, Indistinct, Non Outline -Visible Attached -Granulation Amt Small (1-33%) Large (67-100%) -Granulation Quality Perrin Perrin -Slough/Fibrin Yes -Necrosis Amt Small (1-33%) None Present (0 %) -Necrotic Tissue Type Adherent Slough -Structure Exposed N/A -Texture (Angela-wound Skin Appearance) Assessed, Scarring Scarring -Moisture (Angela-wound Skin Appearance) Assessed, Dry/Scaly Maceration -Color (Angela-wound Skin Appearance) Assessed Hemosiderin Staining -Temperature (Angela-wound Skin No Abnormality No Abnormality Appearance) (Pt Warm) (Pt Warm) -Tenderness on Palpation (Angela-wound No No Skin Appearance) -Ulcer Cleansing Rinsed/ Soap and Water Irrigated with Saline -Foul Odor after Cleansing No No -Anesthetic Used 5% Lidocaine 5% Lidocaine Gel Gel Lower Limb Edema Present No Right Calf (cm) 33.4 32.5 32.7 Right Ankle (cm) 22.5 22.2 22.2 - Nurse 2 - General Ulcer CM Notes Start: 04/20/23 10:54 Freq: Status: Active Protocol: Activity Type Activity Date Activity User E-sign Co-sign Detail Recorded Client Recorded Date Recorded By Document 04/20/23 11:02 Laptop 04/20/23 11:03 Document 04/27/23 10:49 Laptop 04/27/23 10:54 Document 05/04/23 10:32 Laptop 05/04/23 10:33 04/20/23 04/27/23 05/04/23 11:02 10:49 10:32 Wound Center Nurse 2 #1 RIGHT Medial Ankle -Time 11:02 10:50 -Correct Patient Yes No No -Correct Side, Site, Position Yes No No -Correct Procedure Yes No No -Procedure Performed Yes No No -Type of Procedure Debridement -Clinical Debridement Subcutaneous -Tissue Removed Subcutaneous -Post Debridement (cm) - Length 0.6 0.1 0 -Post Debridement (cm) - Width 0.7 0.1 0 -Post Debridement (cm) - Depth 0.1 0.1 0 -Total Square (Post) (cm) 0.42 0.01 0 -Area of Debridement (cm) - Length 0.6 0.1 0 -Area of Debridement (cm) - Width 0.7 0.1 0 -Total Square (Area) (cm) 0.42 0.01 0 -Tunneling No -Undermining/Tunneling No -Circular Undermining No -Wound/Ulcer Outcome Not Healed Healed- Healed- Epithelialized Epithelialized -Ulcer Cleansing Rinsed/ Irrigated with Saline -Foul Odor after Cleansing No -Bioengineered Tissue No -Bleeding Controlled with Pressure -Treatment Response Procedure Tolerated Well -Offloading No -Debridement - Subq, 1st 20sq cm Yes No Pain Scale: 0-10 Numeric Is Patient Pain Free? Yes Yes Yes - Nurse 3 - General Ulcer D/C NN Start: 04/20/23 10:54 Freq: Status: Active Protocol: Activity Type Activity Date Activity User E-sign Co-sign Detail Recorded Client Recorded Date Recorded By Document 04/20/23 11:26 PL Tablet 04/20/23 11:27 PL Document 04/27/23 10:56 Laptop 04/27/23 10:57 Document 05/04/23 10:50 Laptop 05/04/23 10:50 04/20/23 04/27/23 05/04/23 11:26 10:56 10:50 Wound Care Center Nurse 3 #1 RIGHT Medial Ankle -Ulcer Cleansing Rinsed/ Rinsed/ Irrigated with Irrigated with Saline Saline -Foul Odor after Cleansing No -Primary Dressing Applied Mepilex Border -Other Dressing Betadine -Mepilex Border 1 Right -Tubular Bandage Single Layer -Size of Tubigrip Used Size D -Size D ($) 0 Pain Scale: 0-10 Numeric Is Patient Pain Free? Yes Yes Yes WC - Visit Discharge Discharge Condition Stable Stable Stable Ambulatory Status Ambulatory Ambulatory Ambulatory Transportation Private Auto Private Auto Accompanied by Medication Reconcilliation completed & Yes Yes provided to patient/care provider Clinical Summary of Care Provided Yes Yes Assessment/Plan Assessment/Plan (1) Non-pressure chronic ulcer of right ankle with fat layer exposed: CODE(S): L97.312 - Non-pressure chronic ulcer of right ankle with fat layer exposed PLAN: Patient was examined and evaluated. All findings were discussed with the patient. All questions were answered to the patient's satisfaction. The patient's right ankle ulceration is now healed. Educated the patient on the importance of keeping the skin hydrated and supple. She was given a prescription for compression stockings to go get sized at [facility]. Educated the patient on the importance of wearing the compression stockings as she may reulcerate due to venous insufficiency. Gave the patient Dr. Emerson's private business card, if she has any issues she is to follow-up in private office for evaluation prior to coming to the wound care center. Follow-up at the wound care center with Dr. Emerson in 1 week. (2) Venous insufficiency: CODE(S): I87.2 - Venous insufficiency (chronic) (peripheral)
--- NOTE | 2023-05-20 08:38 | WC ---
2.7.24 RT MED ANKLE
== END 2023-05-05 09:05 | disposition home or self-care (01) ==
LOC: WC 10:15
PROVIDERS: PCP Family Medicine; Referring Provider Family Medicine; Visit Provider Podiatrist Foot & Ankle Surgery
DX: I87.8 Other specified disorders of veins (principal); L97.312 Non-pressure chronic ulcer of right ankle with fat layer exposed; Z79.02 Long term (current) use of antithrombotics/antiplatelets; Z79.899 Other long term (current) drug therapy
CPT/HCPCS: 11042; 99213; G0463

== ENCOUNTER → 2023-09-19 | Outpatient (CLI) | payer MEDICARE, SELFPAY ==
--- NOTE | 2023-09-19 07:42 | AAVD_ITS ---
Reason For Study: HX Dist IVC / BLE CIV Stents Inferior Vena Cava Proximal inferior vena cava measures 1.08 x 1.71 cm. in the cross-sectional axis. Proximal inferior vena cava measures 0.82 cm. in the longitudinal axis. Mid inferior vena cava measures 0.86 x 1.18 cm. in the cross-sectional axis. Mid inferior vena cava measures 1.01 cm. in the longitudinal axis. Distal inferior vena cava measures 0.99 x1.07 cm. in the cross-sectional axis. Distal inferior vena cava measures 1.05 cm. in the longitudinal axis. The inferior vena cava has spontaneous, phasic flow throughout. Stent noted at distal. Left Common Iliac Vein Left common iliac vein measures 1.26 x 1.40 cm. in the cross-sectional axis. Left common iliac vein measures 1.37 cm. in the longitudinal axis. The left common iliac vein has spontaneous, phasic flow throughout. Stent noted. Right Common Iliac Vein Right common iliac vein measures 1.40 cm. in the longitudinal axis. Right common iliac vein measures 1.38 x 1.35 cm. in the cross-sectional axis. The right common iliac vein has spontaneous, phasic flow throughout. Stent noted. Procedure Aorta IVC Iliac vasculature or bypass grafts 20273. The exam was diagnostic. Exam performed in department. VL/Abd Aortic/IVC Duplex scan Interpretation Summary Patent IVC and bilateral iliac vein stents with normal venous waveforms. Ordering Physician: Susan Bhakta Referring Physician: Gibran Samuel Performed By: David Perez RVT and Student
== END | disposition home or self-care (01) ==
PROVIDERS: PCP Family Medicine; Referring Provider Physician Assistant; Visit Provider Physician Assistant
DX: Z48.812 Encounter for surgical aftercare following surgery on the circulatory system (principal); L97.312 Non-pressure chronic ulcer of right ankle with fat layer exposed; I87.2 Venous insufficiency (chronic) (peripheral)
CPT/HCPCS: 93978

== ENCOUNTER → 2024-03-26 | Outpatient (CLI) | payer MEDICARE, SELFPAY ==
--- NOTE | 2024-03-26 08:57 | AAVD_ITS ---
Reason For Study: Dist IVC/Ble CIV Stents Inferior Vena Cava Proximal inferior vena cava measures 1.74x1.83 cm. in the cross-sectional axis. Proximal inferior vena cava measures 1.86 cm. in the longitudinal axis. Mid inferior vena cava measures 1.21x1.31 cm. in the cross-sectional axis. Mid inferior vena cava measures 1.11 cm. in the longitudinal axis. Distal inferior vena cava measures 1.20x1.25 cm. in the cross-sectional axis. Distal inferior vena cava measures 1.12 cm. in the longitudinal axis. The inferior vena cava has spontaneous, phasic flow throughout. Stents noted in Distal IVC. Left Common Iliac Vein Left common iliac vein measures 1.26x1.41 cm. in the cross-sectional axis. Left common iliac vein measures 1.33 cm. in the longitudinal axis. The left common iliac vein has spontaneous, phasic flow throughout. Stent noted. Right Common Iliac Vein Right common iliac vein measures 1.48x1.51 cm. in the cross-sectional axis. Right common iliac vein measures 1.29 cm. in the longitudinal axis. The right common iliac vein has spontaneous, phasic flow throughout. Stent noted. VL/Abd Aortic/IVC Duplex scan Interpretation Summary Patent inferior vena cava and bilateral iliac vein stents with normal venous fl ow pattern. Ordering Physician: Susan Bhakta Referring Physician: Gibran Samuel MD Performed By: Anum Barney RVT and Student
== END | disposition home or self-care (01) ==
PROVIDERS: PCP Family Medicine; Referring Provider Physician Assistant; Visit Provider Physician Assistant
DX: Z48.812 Encounter for surgical aftercare following surgery on the circulatory system (principal); I87.2 Venous insufficiency (chronic) (peripheral)
CPT/HCPCS: 93978